=== PATIENT | male | born 1990 | race Caucasian/White ===

== ENCOUNTER → 2020-07-14 09:41 | Outpatient (BNVA) | payer MEDICARE, MEDICAID, SELFPAY ==
--- NOTE | 2020-09-07 14:37 | P.EN_ITS ---
Event Note Date of Service: 09/07/20 Event Note: Call from patient: Complains of burning and cramping upper abdominal pain for the past few days. Pain is intermittent and thinks pain may be related to medications he is taking for a gout attack - taking Naproxen 500 mg 1-2 times daily. Notes some nausea & bloating and denies vomiting, fever or chills. BMs have been slow and had a BM this morning - soft and normal in color. Taking Pantoprazole 40 mg twice daily. Pt was advised to: Go on a liquid diet for 24 hrs. Take MIralax once daily for constipation. Take simethicone 2-3 times daily as needed. To call the GI clinic tomorrow if his symptoms persist. To go to [facility] if he notes increasing pain, fever, chills, nausea or vomiting
== END ==
PROVIDERS: PCP Physician Assistant; Referring Provider Physician Assistant; Visit Provider Physician Assistant
DX: K21.9 Gastro-esophageal reflux disease without esophagitis (principal); Z79.899 Other long term (current) drug therapy
CPT/HCPCS: Q3014

== ENCOUNTER 2020-09-20 09:19 | Inpatient (IN) | payer MEDICARE, MEDICAID, SELFPAY ==
--- NOTE | 2020-09-20 | XR_ITS ---
EXAMINATION: XR CHEST CLINICAL INFORMATION: Verify NG tube placement COMPARISON: CT abdomen pelvis earlier today TECHNIQUE: Frontal view of the chest was obtained. FINDINGS: Enteric tube terminates below the level of the diaphragm in the expected location of the stomach. Cardiac silhouette is normal in size. The lungs are well aerated. There is no lobar consolidation. No pleural effusion or pneumothorax. XR/XR chest 1V IMPRESSION: Enteric tube in expected position.
--- NOTE | 2020-09-20 09:34 | ED.ABDPAIN ---
HPI - Abdominal Pain General Chief Complaint: Abdominal Pain Stated Complaint: abd pain Time Seen by Provider: 09/20/20 09:33 Source: patient Mode of arrival: ambulatory Limitations: no limitations History of Present Illness HPI narrative: Patient history of surgery in abdomen when he was infant since then patient had multiple episodes of partial bowel obstruction, 2 years ago he had complete bowel obstruction has to be in the hospital and NGT was placed. This time patient feels since yesterday evening upper abdominal pain with nausea still passing gas but pain is getting worse and is similar to that in the past when he had partial bowel obstruction MD elicited complaint: abdominal pain Pertinent past history: other Onset (ago): hour(s) (14) Pain Consistency: constant Location: epigastric Quality: cramping Radiation: epigastric Exacerbating factors: eating Relieving factors: nothing Associated symptoms: nausea Related Data Home Medications Medication Instructions Recorded Confirmed pantoprazole 40 mg tablet,delayed 40 mg PO DAILY 07/14/20 07/14/20 release cetirizine 09/20/20 escitalopram oxalate 1 tab PO DAILY 09/20/20 09/20/20 ibuprofen 1 tab PO TID 09/20/20 09/20/20 Previous Rx's Medication Instructions Recorded simethicone 80 mg chewable tablet 80 mg PO TID-QID PRN 30 Days #90 09/07/20 tab Allergies Allergy/AdvReac Type Severity Reaction Status Date / Time Sulfa (Sulfonamide Allergy Intermediate SWOLLEN Unverified 05/15/20 17:04 Antibiotics) TONGUE [SULFA (SULFONAMIDE ANTIBIOTICS)] sulfa Allergy Unknown swollen Uncoded 02/25/20 00:00 tongue Review of Systems Review of Systems Constitutional : No Weight loss, No Fever, No Chills ENT/Mouth : No sore throat, No Rhinorrhea Eyes: No Eye Pain, No Swelling Cardiovascular : No Chest Pain, no palpitations Respiratory : No Cough, No Sputum, no shortness of breath Gastrointestinal : ++ Nausea, No Vomiting, No Diarrhea, ++abdominal Pain, no black stools Genitourinary : No Dysuria, No Urinary Frequency Musculoskeletal : No joint pain, No Myalgias, No Joint Swelling Skin : No Skin Lesions, No rash Neuro : No Weakness, No Numbness, No Dizziness, No Headache Psych : No Anxiety/Panic, No Depression Heme/Lymph: No Bruising, No Lymphadenopathy Endocrine : No Polyuria, No Polydipsia All other systems reviewed and are negative Physical Exam Vital Signs: Vital Signs: Last Vital Signs Temp 97.5 F 09/20/20 13:37 Pulse 72 09/20/20 13:37 Resp 20 09/20/20 13:37 BP 133/76 09/20/20 13:37 Pulse Ox 97 09/20/20 13:37 Body Mass Index 43.9 Const: General: cooperative, comfortable, well developed and acute distress moderate Nutritional Appearance: average body habitus Orientation/consciousness: patient oriented x3 HENMT: Head: Yes normal to inspection Ears: hearing grossly normal bilaterally Mouth: Normal oral and palatal mucosa present Eyes: General: appearance normal, both eyes and all related structures Neck: Neck: Yes normal visual inspection, Yes full ROM and Yes no JVD Chest: Chest palpation & inspection: normal inspection of the chest Resp: Effort & Inspection: normal respiratory effort Auscultation: clear to auscultation bilaterally, no crackles, no rales and no rhonchi Cardio: Jugular venous distension: no JVD Palpation: normal PMI Rate: regular rate Rhythm: regular rhythm Heart sounds: S1 normal heart sound present and S2 normal heart sound present GI: Inspection: Yes normal to inspection Palpation (GI): Soft to palpation, Tenderness to palpation present (GI) in the epigastrum; with no rebound tenderness and no masses Auscultation: Hyperactive bowel sounds present : General: Yes no CVA tenderness Back/Spine/Pelvis: Back: no CVA tenderness Thoracic/Lumbar Spine: thoracic and lumbar spine normal to inspection Skin: General skin exam: no rashes or lesions noted Neuro: General: patient oriented x3 and gait normal Extrem: General: Yes normal to inspection, Yes no calf tenderness and No pedal edema Course Course Course Narrative: Patient with partial small-bowel obstruction CT scan confirmed that. NG tube was placed which drained about 500 cc of gastric content patient feeling much better will admit patient for observation for intermitted NG suction patient seen by Dr. Green surgeon MDM - Abdominal Pain Differential Diagnosis Differential diagnosis: Likely small bowel obstruction Medical Records Attestation: I reviewed the patient's medical records. Lab Data Attestation: I reviewed the patient's lab results. Result diagrams: 09/20/20 09:52 09/20/20 09:52 Labs: Lab Results 09/20/20 09/20/20 09/20/20 Range/Units 09:52 09:52 13:40 WBC 8.7 (4.8-10.8) X10*3/uL RBC 5.73 (4.60-5.80) X10*6/uL Hgb 17.5 (14.0-18.0) g/dl Hct 48.8 (42-52) % MCV 85.2 (80-98) fL MCH 30.5 (27.0-33.0) pg MCHC 35.9 (31.0-36.0) g/dl RDW 12.6 (11.0-16.0) % Plt Count 281 (160-400) X10*3/uL MPV 9.4 (9.4-12.4) fL Immature Gran % (Auto) 0.5 H (0.0-0.4) % Neut % (Auto) 71.9 (45-73) % Lymph % (Auto) 17.9 L (20-40) % [place] % (Auto) 8.1 (2-11) % Eos % (Auto) 1.3 (0-4) % Baso % (Auto) 0.3 (0-2) % Lymph # (Auto) 1.6 (1.2-4.9) X10*3/uL [place] # (Auto) 0.7 (0.1-1.2) X10*3/uL Eos # (Auto) 0.1 (0.0-0.4) X10*3/uL Baso # (Auto) 0.0 (0.0-0.2) X10*3/uL Abs Immat Gran (auto) 0.04 H (0.00-0.03) X10*3/uL Absolute Neuts (auto) 6.2 (2.0-8.3) X10*3/uL Absolute Nucleated RBC 0.000 (0.0-0.012) X10*3/uL Nucleated RBC % (auto) 0.0 (0.0-0.2) /100WBC Sodium 138 (135-145) mmol/L Potassium 4.7 (3.3-5.1) mmol/l Chloride 102 (96-108) mmol/L Carbon Dioxide 26 (22-29) mmol/L Anion Gap 15 (12-20) BUN 18 H (9-16) mg/dL Creatinine 1.04 (0.5-1.4) mg/dL Estim Creat Clear Calc 124.5 Estimated GFR > 60 Random Glucose 127 H (60-115) mg/dL Calcium 9.7 (8.4-10.2) mg/dL Total Bilirubin 1.3 H (0.0-1.0) mg/dL Direct Bilirubin 0.5 (0.0-0.5) mg/dL AST 48 H (5-37) U/L ALT 105 H (0-40) U/L Alkaline Phosphatase 50 (39-117) U/L Total Protein 7.8 (6.5-8.0) g/dL Albumin 5.0 (3.5-5.0) g/dL Lipase 25 (8-78) U/L COVID-19 ([facility]ACE) Negative (Negative) COVID-19 Clin Com See Note Discharge Plan Discharge Clinical Impression: Small bowel obstruction Patient Disposition: Admitted As Inpatient [facility] Past Medical History Medical History (Updated 09/20/20 @ 13:58 by Bernabe Green MD) Chronic GERD Gout History of varicose veins Klippel Trenaunay syndrome Partial small bowel obstruction SBO (small bowel obstruction) Surgical History History of bowel resection History of colonoscopy History of laparotomy History of vascular surgery Hx of endoscopy Hx of tonsillectomy Status post orchiopexy Family History Family History Father No problems noted. Mother No problems noted. Maternal Grandmother Hx of colon cancer, stage I Social History Social History Alcohol intake: never Smoking Status: Never smoker Use of substances other than those prescribed or required for medical reasons: No Advance Directives: No Advance Directives Information Provided: No service: No Current occupational status: disabled
--- NOTE | 2020-09-20 09:37 | CT_ITS ---
EXAMINATION: CT ABDOMEN AND PELVIS WITHOUT CONTRAST CLINICAL INFORMATION: 29-year-old male with upper abdominal pain. Question partial small bowel obstruction. COMPARISON: CT abdomen pelvis 10/26/2019 TECHNIQUE: Multidetector volumetric imaging was performed from the superior aspect of the liver through the pubic symphysis. Sagittal and coronal reformatted images were obtained on the technologist's workstation. This CT examination was performed using dose optimization techniques as appropriate, variously including the following: *Automated exposure control *Adjustment of mA and/or kV according to patient size (this includes techniques or standardized protocols for targeted exams where dose is matched to indication/reason for exam; i.e. extremities or head) *Use of iterative reconstruction technique DLP: 1131 mGy-cm FINDINGS: Visualized lung bases are well aerated. The liver is mildly enlarged and demonstrates diffusely decreased attenuation. The gallbladder is normal in appearance. The pancreas and adrenal glands are unremarkable. The spleen is mildly enlarged measuring 15.4 cm. Symmetrically sized kidneys. No renal calculi or hydronephrosis bilaterally. Mildly distended, debris-filled stomach. There is gradual dilatation of proximal and mid loops of small bowel which measure up to 3.4 cm. A few scattered air-fluid levels are noted within these sections of small bowel. There appears to be fecal contents present within the midportion of the small bowel. Small bowel gradually tapers to a normal caliber distal small bowel without transition zone (right lower quadrant images 53 through 37/103, series 3). The colon is normal in caliber and demonstrates only mild stool burden. There is mild colonic diverticulosis without CT evidence to suggest active diverticulitis. Normal appendix. Nonaneurysmal abdominal aorta. Embolization coils are noted within the left gonadal vein. There are dilated collaterals which appear to extend from the left renal vein into the lumbar system and pelvic veins. The infrarenal IVC is severely atrophic and not clearly visualized. The right common iliac vein is not visualized. Venous system from the right lower extremity appears to drain through the right internal iliac veins and then into the lumbar system. Pelvic varices again noted. The bladder is normal in appearance. The prostate gland is not enlarged. No gross free pelvic fluid. Shotty bilateral inguinal lymph nodes again noted. No gross free pelvic fluid. Mild degenerative changes of the spine. CT/CT abdomen pelvis wo con IMPRESSION: 1. Mildly dilated loops of mid small bowel which contain a few air-fluid levels and fecal material. There is gradual transition to a normal caliber distal small bowel without abrupt transition zone. Findings are nonspecific. 2. Diffusely decreased liver attenuation suggesting hepatic steatosis. Correlation with liver enzymes recommended. 3. Mild splenomegaly. 4. Vascular anomalies again noted as detailed above.
[2020-09-20 09:42] VITALS: BP 151/89; PULSE 70; RESP 18; TEMP 36.6; O2SAT 97; BMI 43.9
[2020-09-20] MEDS: ondansetron HCL 4 MG/2 ML VIAL IVPUSH ×2 (09:54→14:12)
[2020-09-20] MEDS: 0.9 % Sodium Chloride 1,000 ML 999 ML IVCONT ×2 (09:54→14:17)
[2020-09-20] MEDS: Morphine Sulfate 4 MG/ML CARTRIDGE IVPUSH ×2 (09:54→11:24)
[2020-09-20 09:58] LABS: MANUAL DIFF FLAG NO
[2020-09-20 10:15] LABS: Basophils Percent Auto 0.3 % (0-2); Eosinophils Absolute Auto 0.1 X10*3/uL (0.0-0.4); Eosinophils Percent Auto 1.3 % (0-4); Hematocrit 48.8 % (42-52); Hemoglobin 17.5 g/dl (14.0-18.0); Imm Gran Abs Auto 0.04 X10*3/uL (0.00-0.03); Imm Gran Pct Auto 0.5 % (0.0-0.4); Lymphocytes Absolute Auto 1.6 X10*3/uL (1.2-4.9); Lymphocytes Percent Auto 17.9 % (20-40); Mean Corpuscular HGB Conc 35.9 g/dl (31.0-36.0); Mean Corpuscular Hemoglobin 30.5 pg (27.0-33.0); Mean Corpuscular Volume 85.2 fL (80-98); Mean Platelet Volume 9.4 fL (9.4-12.4); Monocytes Absolute Auto 0.7 X10*3/uL (0.1-1.2); Monocytes Percent Auto 8.1 % (2-11); Neutrophils Absolute Auto 6.2 X10*3/uL (2.0-8.3); Neutrophils Percent Auto 71.9 % (45-73); Platelet Count 281 X10*3/uL (160-400); Red Blood Count 5.73 X10*6/uL (4.60-5.80); Red Cell Distribution Width 12.6 % (11.0-16.0); White Blood Count 8.7 X10*3/uL (4.8-10.8)
[2020-09-20 10:30] LABS: Alanine Aminotransferase 105 U/L (0-40); Alkaline Phosphatase 50 U/L (39-117); Anion Gap 15 (12-20); Aspartate Amino Transferase 48 U/L (5-37); Bilirubin Direct 0.5 mg/dL (0.0-0.5); Bilirubin Total 1.3 mg/dL (0.0-1.0); Blood Urea Nitrogen 18 mg/dL (9-16); Calcium 9.7 mg/dL (8.4-10.2); Carbon Dioxide 26 mmol/L (22-29); Chloride 102 mmol/L (96-108); Creatinine Clr Calc Pharmacy 124.5; Estimated Glomerular Filt Rate > 60; Glucose Random 127 mg/dL (60-115); Lipase 25 U/L (8-78); Potassium 4.7 mmol/l (3.3-5.1); Sodium 138 mmol/L (135-145); Total Protein 7.8 g/dL (6.5-8.0)
--- NOTE | 2020-09-20 10:41 | PC.NURSE ---
pt sts pain is a bit better . awaiting ct scan results.
[2020-09-20 11:11] VITALS: BP 112/51; PULSE 73; RESP 18; TEMP 36.7; O2SAT 97
[2020-09-20 11:24] VITALS: RESP 22
[2020-09-20] MEDS: Lidocaine HCl 4 % Laryng-O-Jet 4 ML 1 APPL TOPICAL ×2 (11:25→11:54)
[2020-09-20 13:37] VITALS: BP 133/76; PULSE 72; RESP 20; TEMP 36.4; O2SAT 97
--- NOTE | 2020-09-20 13:48 | P.HPGS_ITS ---
History of Present Illness History of Present Illness Date of Service: 09/21/20 Chief complaint: PSBO Narrative: Rod Kay is a 29 year old male here in the emergency room because of abdominal pain. He describes this is diffuse and this had started sometime last night after dinner. He said this persisted throughout the night so he came to the emergency room this morning. He had a CAT scan showed suggesting partial small-bowel obstruction. He does have a history of chronic and recurrent abdominal pain. He has had multiple admissions for small-bowel obstruction. 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 At some point he had a stoma in place and this had to reversed when he was young child. Review of his medical records show that had actually admitted him to the hospital in 2018 for abdominal pain and vomiting with CAT scan showing small bowel obstruction. He says he had a bowel movement yesterday. He had flatus yesterday as well but does not recall any today. Review of Systems Constitutional: Constitutional: Denies chills and Denies fever(s) Cardiovascular: Cardiovascular: Denies chest pain, Denies dyspnea and Denies dyspnea on exertion Respiratory: Respiratory: Denies cough, Denies dyspnea and Denies dyspnea on exertion Gastrointestinal: Gastrointestinal: Denies hematochezia and Denies change in bowel habits Genitourinary: Genitourinary: Denies hematuria and Denies difficulty urinating Musculoskeletal: Musculoskeletal: Denies back pain and Denies limited range of motion Neurologic: Denies focal weakness and Denies convulsions Psychiatric: Psychiatric: Denies depression and Denies mood swings [facility] Past Medical History Medical History (Updated 09/20/20 @ 13:58 by Bernabe Green MD) Chronic GERD Gout History of varicose veins Klippel Trenaunay syndrome Partial small bowel obstruction SBO (small bowel obstruction) Functional capacity: independent ambulation Family History Family History Father No problems noted. Mother No problems noted. Maternal Grandmother Hx of colon cancer, stage I Surgical History Surgical History History of bowel resection History of colonoscopy History of laparotomy History of vascular surgery Hx of endoscopy Hx of tonsillectomy Status post orchiopexy Social History Social History Household Members: Other Household Members Other:: mother Housing: House Do you presently have visiting nurse or other home services: No Alcohol intake: never Smoking Status: Never smoker Use of substances other than those prescribed or required for medical reasons: No Currently Displaying Signs/Symptoms of Drug Intoxication Withdrawal: No Have you been hit, kicked, punched, or otherwise hurt by someone within the past year? If so, by whom?: No Do you feel safe in your current relationship?: No Current Relationship Is there a partner from a previous relationship who is making you feel unsafe now?: No Are you made to feel afraid or neglected: No Advance Directives: No Advance Directives Information Provided: No Do you have thoughts of harming others: None Do you have a plan to hurt others: No Plan Recently lost weight without trying: No service: No Current occupational status: disabled Meds Allergies Allergy/AdvReac Type Severity Reaction Status Date / Time Sulfa (Sulfonamide Allergy Intermediate SWOLLEN Verified 09/20/20 16:14 Antibiotics) TONGUE [SULFA (SULFONAMIDE ANTIBIOTICS)] sulfa Allergy Unknown swollen Uncoded 09/20/20 16:15 tongue Home Medications Medication Instructions Recorded Confirmed Type pantoprazole 40 mg tablet,delayed 40 mg PO BID 07/14/20 09/20/20 History release cetirizine 5 mg PO DAILY PRN 09/20/20 09/20/20 History escitalopram oxalate 1 tab PO DAILY 09/20/20 09/20/20 History ibuprofen 1 tab PO TID 09/20/20 09/20/20 History Physical Exam Vital Signs: Vital Signs: Last Vital Signs Temp 97.5 F 09/20/20 13:37 Pulse 72 09/20/20 13:37 Resp 20 09/20/20 13:37 BP 133/76 09/20/20 13:37 Pulse Ox 97 09/20/20 13:37 Body Mass Index 43.9 Const: Other: Appears overweight, looks uncomfortable General: no acute distress Orientation/consciousness: patient oriented x3 Neck: Neck: Yes no lymphadenopathy Resp: Auscultation: clear to auscultation bilaterally Cardio: Rhythm: regular rhythm GI: Other: Has diffuse tenderness no guarding or rebound, transverse surgical scar on the right side of the abdomen Palpation (GI): Soft to palpation and no guarding Neuro: General: patient oriented x3 Extrem: Other: Varicosities on both lower extremities Results Results Labs: Short CBC 09/20/20 Range/Units 09:52 WBC 8.7 (4.8-10.8) X10*3/uL Hgb 17.5 (14.0-18.0) g/dl Hct 48.8 (42-52) % Plt Count 281 (160-400) X10*3/uL BMP 09/20/20 09:52 Sodium 138 Potassium 4.7 Chloride 102 Carbon Dioxide 26 BUN 18 H Creatinine 1.04 Calcium 9.7 Liver Function 09/20/20 Range/Units 09:52 Total Bilirubin 1.3 H (0.0-1.0) mg/dL Direct Bilirubin 0.5 (0.0-0.5) mg/dL AST 48 H (5-37) U/L ALT 105 H (0-40) U/L Alkaline Phosphatase 50 (39-117) U/L Albumin 5.0 (3.5-5.0) g/dL Abdomen CT scan report/results: report reviewed and image reviewed CT scan - pelvis: report reviewed and image reviewed Assessment and Plan (1) Partial small bowel obstruction: Status: Acute He came in because of abdominal pain and some nausea. I have reviewed his CAT scan images in this shows dilated loops of small bowel way to the mid jejunal area. He does have good amount of air distal to this including the colon. This is suggestive of partial small-bowel obstruction. An NG tube has been inserted in the emergency room. Thick history contents were drained. He has pain and tenderness but examination is currently benign. I explained to him that he is being admitted because of his partial small-bowel obstruction. He will be NPO but may have medications by mouth. He will be hydrated with IV fluids. I explained to him that most of the time, small-bowel obstruction secondary to adhesions resolved with conservative measures. However, he was made aware that there is small chance that he may require laparotomy for non-improvement or worsening. He has had multiple episodes in the past and says that he is familiar with the plan.
[2020-09-20 14:10] LABS: COVID-19 Test Negative (Negative)
[2020-09-20] MEDS: Morphine Sulfate 4 MG/ML CARTRIDGE 2 MG IVPUSH (14:11)
[2020-09-20] MEDS: Lactated Ringers 500 ML 100 ML IV (14:50)
--- NOTE | 2020-09-20 15:44 | PC.NURSE ---
x1 call for report
[2020-09-20] MEDS: Lactated Ringers 1,000 ML 100 ML IVCONT (16:36)
[2020-09-20 16:59] VITALS: BP 154/76; PULSE 77; RESP 16; TEMP 36.7; O2SAT 96
[2020-09-20] MEDS: Morphine Sulfate 4 MG/ML CARTRIDGE 3 MG IVPUSH ×2 (17:05→23:36)
--- NOTE | 2020-09-20 17:33 | PC.NURSE ---
patient is refusing compression boots.Dr Green notified via [employer].
[2020-09-20] MEDS: Sodium Chloride 0.65 % Nasal 44 ML SPRBTL 1 SPRAY NOSTRIL-B (22:44)
[2020-09-21] VITALS (7 sets, daily range): BP systolic 124–150; BP diastolic 65–89; PULSE 78–99; RESP 18–19; TEMP 36.4–37.3; O2SAT 90–95
[2020-09-21] MEDS: Morphine Sulfate 4 MG/ML CARTRIDGE 3 MG IVPUSH ×4 (02:36→21:53)
[2020-09-21] MEDS: Lactated Ringers 1,000 ML 100 ML IVCONT ×3 (02:41→20:21)
--- NOTE | 2020-09-21 07:00 | XR_ITS ---
EXAMINATION: XR ABDOMEN KUB CLINICAL INDICATION: Partial small bowel obstruction COMPARISON: CT abdomen pelvis 09/20/2019 TECHNIQUE: AP view of the abdomen. FINDINGS: A few air-filled loops of small bowel are noted, however, none appear dilated. 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 There is a moderate stool burden throughout the colon. Enteric tube terminates over the left upper abdomen in the expected location of the stomach. No gross osseous abnormality. Embolization clips project over the left pelvis. XR/XR KUB IMPRESSION: Resolving/resolved partial small bowel obstruction.
[2020-09-21 07:30] LABS: MANUAL DIFF FLAG NO
[2020-09-21 07:41] LABS: Basophils Percent Auto 0.2 % (0-2); Eosinophils Absolute Auto 0.1 X10*3/uL (0.0-0.4); Eosinophils Percent Auto 0.8 % (0-4); Hematocrit 45.1 % (42-52); Hemoglobin 15.5 g/dl (14.0-18.0); Imm Gran Abs Auto 0.04 X10*3/uL (0.00-0.03); Imm Gran Pct Auto 0.5 % (0.0-0.4); Lymphocytes Absolute Auto 1.6 X10*3/uL (1.2-4.9); Lymphocytes Percent Auto 19.1 % (20-40); Mean Corpuscular HGB Conc 34.4 g/dl (31.0-36.0); Mean Corpuscular Hemoglobin 29.8 pg (27.0-33.0); Mean Corpuscular Volume 86.7 fL (80-98); Mean Platelet Volume 9.1 fL (9.4-12.4); Monocytes Absolute Auto 0.8 X10*3/uL (0.1-1.2); Monocytes Percent Auto 9.7 % (2-11); Neutrophils Percent Auto 69.7 % (45-73); Platelet Count 238 X10*3/uL (160-400); Red Cell Distribution Width 12.6 % (11.0-16.0); White Blood Count 8.6 X10*3/uL (4.8-10.8)
[2020-09-21 08:15] LABS: Blood Urea Nitrogen 12 mg/dL (9-16); Creatinine Clr Calc Pharmacy 157.9; Estimated Glomerular Filt Rate > 60; Glucose Random 90 mg/dL (60-115)
[2020-09-21] MEDS: Pantoprazole Sodium 40 MG/10 ML VIAL IVPUSH (08:31)
[2020-09-21] MEDS: 0.9 % Sodium Chloride Flush 3 ML SYRINGE IVFLUSH (08:32)
[2020-09-21 08:37] LABS: Anion Gap 15 (12-20); Calcium 8.3 mg/dL (8.4-10.2); Carbon Dioxide 23 mmol/L (22-29); Chloride 107 mmol/L (96-108); Potassium 3.9 mmol/l (3.3-5.1); Sodium 141 mmol/L (135-145)
--- NOTE | 2020-09-21 11:10 | PM.PNGS ---
Subjective Subjective Date of Service: 09/21/20 Interval history: abd much better passing flatus - a lot c/o pain from NGT Physical Exam Vital Signs: Vital Signs: Last Vital Signs Temp 98.9 F 09/21/20 08:00 Pulse 86 09/21/20 08:00 Resp 18 09/21/20 08:00 BP 140/89 H 09/21/20 08:00 Pulse Ox 91 L 09/21/20 08:00 Body Mass Index 43.9 Laboratory Results WBC 8.6 X10*3/uL (4.8 -10.8) 09/21/20 07:07 RBC 5.20 X10*6/uL (4. 60-5.80) 09/21/20 07:07 Hgb 15.5 g/dl (14.0-1 8.0) 09/21/20 07:07 Hct 45.1 % (42-52) 09/21/20 07:07 MCV 86.7 fL (80-98) 09/21/20 07:07 MCH 29.8 pg (27.0-33. 0) 09/21/20 07:07 MCHC 34.4 g/dl (31.0-3 6.0) 09/21/20 07:07 RDW 12.6 % (11.0-16.0 ) 09/21/20 07:07 Plt Count 238 X10*3/uL (160 -400) 09/21/20 07:07 MPV 9.1 fL (9.4-12.4) L 09/21/20 07:07 Immature Gran % (A uto) 0.5 % (0.0-0.4) H 09/21/20 07:07 Neut % (Auto) 69.7 % (45-73) 09/21/20 07:07 Lymph % (Auto) 19.1 % (20-40) L 09/21/20 07:07 [place] % (Auto) 9.7 % (2-11) 09/21/20 07:07 Eos % (Auto) 0.8 % (0-4) 09/21/20 07:07 Baso % (Auto) 0.2 % (0-2) 09/21/20 07:07 Lymph # (Auto) 1.6 X10*3/uL (1.2 -4.9) 09/21/20 07:07 [place] # (Auto) 0.8 X10*3/uL (0.1 -1.2) 09/21/20 07:07 Eos # (Auto) 0.1 X10*3/uL (0.0 -0.4) 09/21/20 07:07 Baso # (Auto) 0.0 X10*3/uL (0.0 -0.2) 09/21/20 07:07 Abs Immat Gran (au to) 0.04 X10*3/uL (0. 00-0.03) H 09/21/20 07:07 Absolute Neuts (au to) 6.0 X10*3/uL (2.0 -8.3) 09/21/20 07:07 Absolute Nucleated RBC 0.000 X10*3/uL (0 .0-0.012) 09/21/20 07:07 Nucleated RBC % (a uto) 0.0 /100WBC (0.0- 0.2) 09/21/20 07:07 Sodium 141 mmol/L (135-1 45) 09/21/20 07:07 Potassium 3.9 mmol/l (3.3-5 .1) 09/21/20 07:07 Chloride 107 mmol/L (96-10 8) 09/21/20 07:07 Carbon Dioxide 23 mmol/L (22-29) 09/21/20 07:07 Anion Gap 15 (12-20) 09/21/20 07:07 BUN 12 mg/dL (9-16) 09/21/20 07:07 Creatinine 0.82 mg/dL (0.5-1 .4) 09/21/20 07:07 Estim Creat Clear Calc 157.9 09/21/20 07:07 Estimated GFR > 60 09/21/20 07:07 Random Glucose 90 mg/dL (60-115) 09/21/20 07:07 Calcium 8.3 mg/dL (8.4-10 .2) L D 09/21/20 07:07 Total Bilirubin 1.3 mg/dL (0.0-1. 0) H 09/20/20 09:52 Direct Bilirubin 0.5 mg/dL (0.0-0. 5) 09/20/20 09:52 AST 48 U/L (5-37) H 09/20/20 09:52 ALT 105 U/L (0-40) H 09/20/20 09:52 Alkaline Phosphata se 50 U/L (39-117) 09/20/20 09:52 Total Protein 7.8 g/dL (6.5-8.0 ) 09/20/20 09:52 Albumin 5.0 g/dL (3.5-5.0 ) 09/20/20 09:52 Lipase 25 U/L (8-78) 09/20/20 09:52 COVID-19 (CANDACE) Negative (Negati ve) 09/20/20 13:40 COVID-19 Clin Com See Note 09/20/20 13:40 Impressions Chest X-Ray 09/20/20 00:00 IMPRESSION: Enteric tube in expected position. Abdomen/Pelvis CT 09/20/20 09:37 IMPRESSION: 1. Mildly dilated loops of mid small bowel which contain a few air-fluid levels and fecal material. There is gradual transition to a normal caliber distal small bowel without abrupt transition zone. Findings are nonspecific. 2. Diffusely decreased liver attenuation suggesting hepatic steatosis. Correlation with liver enzymes recommended. 3. Mild splenomegaly. 4. Vascular anomalies again noted as detailed above. KUB X-Ray 09/21/20 07:00 IMPRESSION: Resolving/resolved partial small bowel obstruction. Const: General: no acute distress Resp: Effort & Inspection: normal respiratory effort Cardio: Rate: regular rate GI: Palpation (GI): Soft to palpation, not firm and nontender Progress Note: A&P Assessment and plan (1) Partial small bowel obstruction: Status: Acute Assessment and Plan: much improved clinically and on xray still had a lot of NGT output overnight - will monitor today and if much less, possibly dc NGT abd benign labs ok doing better Fall Risk Details Current Medications: Current Medications Generic Name Dose Route Start Last Admin Trade Name Freq PRN Reason Stop Dose Admin Promethazine HCl 12.5 mg/ 50.5 mls @ 202 mls/hr 09/20/20 14:08 09/20/20 17:35 Sodium Chloride IV Infused Q6H PRN Infusion nausea Lactated Ringer's 1,000 mls @ 100 mls/hr 09/20/20 16:30 09/21/20 09:12 Lr IVCONT 100 mls/hr .Q10H MARU Infusion Morphine Sulfate 3 mg 09/20/20 14:17 09/21/20 08:31 Morphine Sulfate 4 Mg/Ml Cartridge IVPUSH 3 mg Q3H PRN Administration pain Ondansetron HCl 4 mg 09/20/20 14:08 Ondansetron Hcl 4 Mg/2 Ml Vial IVPUSH Q8H PRN Nausea Pantoprazole Sodium 40 mg 09/21/20 09:00 09/21/20 08:31 Pantoprazole Sodium 40 Mg/10 Ml Vial IVPUSH 40 mg DAILY MARU Administration Sodium Chloride 3 ml 09/20/20 16:00 09/21/20 08:32 0.9 % Sodium Chloride Flush 3 Ml Syringe IVFLUSH 3 ml QSHIFT MARU Administration Sodium Chloride 1 spray 09/20/20 22:13 09/20/20 22:44 Sodium Chloride 0.65 % Nasal 44 Ml Sprbtl NOSTRIL-B 1 spray Q1H PRN Administration Dry Nasal Passages Time Spent With Patient Time: Total time spent is greater than 50% in coordination of care (as documented) at patient's floor/unit and/or counseling patient: Time with patient: 15 - 24 minutes
[2020-09-21] MEDS: Morphine Sulfate 2 MG/ML CARTRIDGE IVPUSH (11:32)
--- NOTE | 2020-09-21 12:29 | MHC.CM.PN ---
PATIENT IS INDEPENDENT WITH HIS ADLS. NO DME OR VNA SERVICES. HE LIVES WITH HIS MOTHER, WHO WILL PROVIDE TRANSPORT HOME. PATIENT IS HOPING FOR HOME WITH NO NEED FOR SERVICES. CASE MANAGEMENT FOLLOWING. HE IS AWARE THAT CASE MANAGEMENT IS AVAILABLE TO ASSIST WITH COMPLETION OF A HCP DOCUMENT IF HE WOULD LIKE TO ASSIGN AN AGENT. IMM 09/21 IN CHART
--- NOTE | 2020-09-21 13:23 | PM.EVENT ---
Event Note Date of Service: 09/21/20 Event Note: continues to pass flatus abd remains soft minimal NGT output since this AM dc NGT clear liquids later clinically much improved
[2020-09-22] MEDS: Morphine Sulfate 4 MG/ML CARTRIDGE 3 MG IVPUSH ×3 (00:45→06:44)
[2020-09-22 04:00] VITALS: BP 153/67; PULSE 89; RESP 18; TEMP 37.2; O2SAT 92
[2020-09-22] MEDS: Lactated Ringers 1,000 ML 100 ML IVCONT (04:07)
[2020-09-22 07:39] VITALS: BP 122/66; PULSE 80; RESP 18; TEMP 36.4; O2SAT 93
[2020-09-22] MEDS: Pantoprazole Sodium 40 MG/10 ML VIAL IVPUSH (07:45)
[2020-09-22] MEDS: oxyCODONE HCl Immed Release 5 MG TABLET PO ×2 (07:56→12:34)
--- NOTE | 2020-09-22 08:54 | PM.PNGS ---
Subjective Subjective Date of Service: 09/22/20 <Marilyn Aburto PA-C - Last Filed: 09/22/20 08:57> 09/22/20 <Bernabe Green MD - Last Filed: 09/22/20 13:25> Patient reports: feels better <ARAMIS Cloud Last Filed: 09/22/20 08:57> Interval history: Denies abdominal pain. Tolerating clear liquids without nausea or vomiting. Continues to pass flatus. C/o right foot pain at ankle. <Marilyn Aburto PA-C - Last Filed: 09/22/20 08:57> Physical Exam Vital Signs: Vital Signs: Last Vital Signs Temp 97.6 F 09/22/20 07:39 Pulse 80 09/22/20 07:39 Resp 18 09/22/20 07:39 BP 122/66 09/22/20 07:39 Pulse Ox 93 09/22/20 07:39 Body Mass Index 43.9 <Marilyn Aburto PA-C - Last Filed: 09/22/20 08:57> Const: General: comfortable, no acute distress and alert <Marilyn Aburto PA-C - Last Filed: 09/22/20 08:57> Orientation/consciousness: patient oriented x3 <ARAMIS Cloud Last Filed: 09/22/20 08:57> Resp: Effort & Inspection: normal respiratory effort <Marilyn Aburto PA-C - Last Filed: 09/22/20 08:57> Cardio: Rate: regular rate <ARAMIS Cloud Last Filed: 09/22/20 08:57> GI: Inspection: No distended and Yes obesity <ARAMIS Cloud Last Filed: 09/22/20 08:57> Palpation (GI): Soft to palpation, nontender, no guarding and not rigid <ARAMIS Cloud Last Filed: 09/22/20 08:57> Auscultation: normal bowel sounds <ARAMIS Cloud Last Filed: 09/22/20 08:57> Skin: General skin exam: no rashes or lesions noted <Marilyn Aburto PA-C - Last Filed: 09/22/20 08:57> Neuro: General: patient oriented x3 <Marilyn Aburto PA-C - Last Filed: 09/22/20 08:57> Extrem: General: No calf tenderness, No clubbing and No cyanosis <Marilyn Aburto PA-C - Last Filed: 09/22/20 08:57> Right lower extremity: full ROM (no erythema); no edema <Marilyn Aburto PA-C - Last Filed: 09/22/20 08:57> Progress Note: A&P Assessment and plan (1) Partial small bowel obstruction: Status: Acute <Marilyn Aburto PA-C - Last Filed: 09/22/20 08:57> Assessment and Plan: Resolved. Currently asymptomatic. VSS. Abd exam benign. Will advance to low residue diet. If tolerating, stable for d/c to home. Pt comfortable with plan. OOB and ambulation encouraged. <Marilyn Aburto PA-C - Last Filed: 09/22/20 08:57> Continues to do well Passing flatus Denies abdominal pain No nausea or vomiting Tolerating regular food His main complaint now is right foot pain from his gout He can be discharged today I instructed him to follow up with his primary care physician for his gout He can restart all his home medications. <Bernabe Green MD - Last Filed: 09/22/20 13:25> Fall Risk Details Current Medications: Current Medications Generic Name Dose Route Start Last Admin Trade Name Freq PRN Reason Stop Dose Admin Promethazine HCl 12.5 mg/ 50.5 mls @ 202 mls/hr 09/20/20 14:08 09/20/20 17:35 Sodium Chloride IV Infused Q6H PRN Infusion nausea Lactated Ringer's 1,000 mls @ 100 mls/hr 09/20/20 16:30 09/22/20 04:07 Lr IVCONT 100 mls/hr .Q10H MARU Administration Morphine Sulfate 3 mg 09/20/20 14:17 09/22/20 06:44 Morphine Sulfate 4 Mg/Ml Cartridge IVPUSH 3 mg Q3H PRN Administration pain Ondansetron HCl 4 mg 09/20/20 14:08 Ondansetron Hcl 4 Mg/2 Ml Vial IVPUSH Q8H PRN Nausea Oxycodone HCl 5 mg 09/22/20 07:31 09/22/20 07:56 Oxycodone Hcl Immed Release 5 Mg Tablet PO 5 mg Q4H PRN Administration Pain, Moderate (Pain Scale 4-6 Pantoprazole Sodium 40 mg 09/21/20 09:00 09/22/20 07:45 Pantoprazole Sodium 40 Mg/10 Ml Vial IVPUSH 40 mg DAILY MARU Administration Sodium Chloride 3 ml 09/20/20 16:00 09/22/20 07:44 0.9 % Sodium Chloride Flush 3 Ml Syringe IVFLUSH Not Given QSHIFT MARU Sodium Chloride 1 spray 09/20/20 22:13 09/20/20 22:44 Sodium Chloride 0.65 % Nasal 44 Ml Sprbtl NOSTRIL-B 1 spray Q1H PRN Administration Dry Nasal Passages <Marilyn Aburto PA-C - Last Filed: 09/22/20 08:57> Time Spent With Patient Time: Total time spent is greater than 50% in coordination of care (as documented) at patient's floor/unit and/or counseling patient: <Marilyn Aburto PA-C - Last Filed: 09/22/20 08:57> Time with patient: 15 - 24 minutes <Marilyn Aburto PA-C - Last Filed: 09/22/20 08:57>
--- NOTE | 2020-09-22 10:15 | MHC.CM.PN ---
NURSE DIRECTOR OF VOCATIONAL GUIDANCE NOTE ELE[employer]ON[employer] MEDICAL RECORD REVIEWED PER DOCUMENTATION, PARTIAL SMALL BOWEL OBSTRUCTION ABDOMINAL [PAIN AND NAUSEA SMALL BOWEL OBSTRUCTION WAY TO MID JEJUNAL AREA PATIENT REMAINS - NG-TUBE IN PLACE SURGEON CONTINUES TO FOLLOW, DISCHARGE CAGE HOME NO SERVUICES Anticipated , lived with mom
[2020-09-22 12:00] VITALS: BP 126/59; PULSE 84; RESP 18; TEMP 37.2; O2SAT 95
--- NOTE | 2020-09-22 13:31 | MHC.CM.PN ---
pt dcd no skilled servcies ordered by
--- NOTE | 2020-09-24 12:52 | P.DS_ITS ---
DS: Providers Provider Date of Service: 09/24/20 Date of admission: 09/20/20 14:04 Primary care physician: PATRICIA Gallagher DS: Diagnosis Discharge Diagnosis (1) Partial small bowel obstruction: Status: Acute DS: Medications Discharge Medications Home Medications: Home Medications Medication Instructions Recorded Confirmed pantoprazole 40 mg tablet,delayed 40 mg PO BID 07/14/20 09/20/20 release cetirizine 5 mg PO DAILY PRN 09/20/20 09/20/20 escitalopram oxalate 1 tab PO DAILY 09/20/20 09/20/20 ibuprofen 1 tab PO TID 09/20/20 09/20/20 Previous Rx's Medication Instructions Recorded simethicone 80 mg chewable tablet 80 mg PO TID-QID PRN 30 Days #90 09/07/20 tab DS: Summary Hospital Course Hospital Course: BRIEF HPI: Rod Kay is a 29 year old male here in the emergency room because of abdominal pain. He describes this is diffuse and this had started sometime last night after dinner. He said this persisted throughout the night so he came to the emergency room this morning. He had a CAT scan showed suggesting partial small-bowel obstruction. He does have a history of chronic and recurrent abdominal pain. He has had multiple admissions for small-bowel obstruction. 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 At some point he had a stoma in place and this had to reversed when he was young child. Review of his medical records show that had actually admitted him to the hospital in 2018 for abdominal pain and vomiting with CAT scan showing small bowel obstruction. He says he had a bowel movement yesterday. He had flatus yesterday as well but does not recall any today. HOSPITAL COURSE: The patient was admitted to the surgical service for further treatment of the partial small-bowel obstruction. An NG tube was inserted in the emergency room and was continued. NPO status, IVF for hydration and analgesics PRN were ordered for pain; further plan dependent on his clinical course. The patient had an uncomplicated recovery course. On HD #1, he improved symptomatically. He has resolution of his abdominal pain and began passing flatus. His abdomen remained benign. He was reassessed later in the day and his NGT was removed and was started on clear liquids. The following day, he was tolerating clears without any symptoms. He was continuing to pass flatus and had a BM. He was advanced to a solid diet. He was reassessed later that day and remained asymptomatic with a benign abdominal exam. He felt ready for discharge. He was discharged to home on 09/22/20 in stable condition. He can follow up with Dr. Green in the office as needed. Status at Discharge Functional status at discharge: independent ambulation Overall status at discharge: patient is progressing back to baseline Time Spent with Patient Time attestation: Total time spent providing and/or coordinating discharge services: Discharge coordination time: Less than 30 minutes Physical Exam Vital Signs: Vital Signs: Last Vital Signs Temp 98.9 F 09/22/20 12:00 Pulse 84 09/22/20 12:00 Resp 18 09/22/20 12:00 BP 126/59 L 09/22/20 12:00 Pulse Ox 95 09/22/20 12:00 Body Mass Index 43.9 Const: General: comfortable, no acute distress and alert Orientation/consciousness: patient oriented x3 Eyes: Sclerae: sclerae normal Cardio: Rate: regular rate GI: Inspection: No distended Palpation (GI): Soft to palpation, nontender, no guarding and not rigid Skin: General skin exam: no rashes or lesions noted Neuro: General: patient oriented x3 DS: Data Data Completed and Pending Labs on day of discharge: Laboratory Tests 09/20/20 09/20/20 09/20/20 09:52 09:52 13:40 WBC 8.7 RBC 5.73 Hgb 17.5 Hct 48.8 MCV 85.2 MCH 30.5 MCHC 35.9 RDW 12.6 Plt Count 281 MPV 9.4 Immature Gran % (Auto) 0.5 H Neut % (Auto) 71.9 Lymph % (Auto) 17.9 L [place] % (Auto) 8.1 Eos % (Auto) 1.3 Baso % (Auto) 0.3 Lymph # (Auto) 1.6 [place] # (Auto) 0.7 Eos # (Auto) 0.1 Baso # (Auto) 0.0 Abs Immat Gran (auto) 0.04 H Absolute Neuts (auto) 6.2 Absolute Nucleated RBC 0.000 Nucleated RBC % (auto) 0.0 Sodium 138 Potassium 4.7 Chloride 102 Carbon Dioxide 26 Anion Gap 15 BUN 18 H Creatinine 1.04 Estim Creat Clear Calc 124.5 Estimated GFR > 60 Random Glucose 127 H Calcium 9.7 Total Bilirubin 1.3 H Direct Bilirubin 0.5 AST 48 H ALT 105 H Alkaline Phosphatase 50 Total Protein 7.8 Albumin 5.0 Lipase 25 COVID-19 ([facility]) Negative COVID-19 Clin Com See Note 09/21/20 09/21/20 07:07 07:07 WBC 8.6 RBC 5.20 Hgb 15.5 Hct 45.1 MCV 86.7 MCH 29.8 MCHC 34.4 RDW 12.6 Plt Count 238 MPV 9.1 L Immature Gran % (Auto) 0.5 H Neut % (Auto) 69.7 Lymph % (Auto) 19.1 L [place] % (Auto) 9.7 Eos % (Auto) 0.8 Baso % (Auto) 0.2 Lymph # (Auto) 1.6 [place] # (Auto) 0.8 Eos # (Auto) 0.1 Baso # (Auto) 0.0 Abs Immat Gran (auto) 0.04 H Absolute Neuts (auto) 6.0 Absolute Nucleated RBC 0.000 Nucleated RBC % (auto) 0.0 Sodium 141 Potassium 3.9 Chloride 107 Carbon Dioxide 23 Anion Gap 15 BUN 12 Creatinine 0.82 Estim Creat Clear Calc 157.9 Estimated GFR > 60 Random Glucose 90 Calcium 8.3 L D Total Bilirubin Direct Bilirubin AST ALT Alkaline Phosphatase Total Protein Albumin Lipase COVID-19 ([facility]) COVID-19 Clin Com Discharge Plan Discharge Patient Disposition: Home, Self-Care Referrals: Bernabe Green MD [Physician] - (ffup as needed) Ericka Gardner PA [Primary Care Provider] - Discharge Medications: Continued simethicone [Gas Relief 80 (simethicone)] 80 mg tablet,chewable 80 mg PO TID-QID PRN (Reason: abdominal distention) 30 Days Qty: 90 RF: 0 ibuprofen 800 mg tablet 1 tab PO TID RF: 0 escitalopram oxalate 5 mg tablet 1 tab PO DAILY RF: 0 cetirizine tablet 5 mg PO DAILY PRN (Reason: Allergic Symptoms) RF: 0 pantoprazole 40 mg tablet,delayed release (DR/EC) 40 mg PO BID RF: 0 Discharge Orders: Discharge Order (Routine); Ordered 09/22/20 Ordered By: Bernabe Green Diet: advance to usual diet Activity on Discharge: As tolerated Stand Alone Forms: Patient Portal Discharge page Visit Report Forms: Patient Portal Discharge page Care Plan Goals: Return to baseline health and activity. Health Concerns: PSBO Plan of Treatment: Conservative management, f/u as needed Discharge Date/Time: 09/22/20 15:13
== END 2020-09-22 15:13 | disposition home or self-care (01) | DRG 389 ==
LOC: HO.ED 12:46 → HO.EDOVER 15:14 → HO.S3 15:20
PROVIDERS: Admitting Provider Surgery; Emergency Provider Internal Medicine; PCP Physician Assistant; Visit Provider Surgery
DX: K56.600 Partial intestinal obstruction, unspecified as to cause (principal); Q87.2 Congenital malformation syndromes predominantly involving limbs; K21.9 Gastro-esophageal reflux disease without esophagitis; M10.9 Gout, unspecified; Z20.822 Contact with and (suspected) exposure to COVID-19; Z88.2 Allergy status to sulfonamides; Z79.1 Long term (current) use of non-steroidal anti-inflammatories (NSAID); Z79.899 Other long term (current) drug therapy
CPT/HCPCS: 36415; 71045; 74018; 74176; 80048; 80076; 83690; 85025; 87635; 96361; 96374; 96375; 96376; 99285; J2270; J2405

== ENCOUNTER → 2020-11-03 14:35 | Outpatient (BNVA) | payer MEDICARE, MEDICAID, SELFPAY | PROVIDERS: PCP Psychiatry & Neurology Neurology; Visit Provider Physician Assistant | CPT/HCPCS: Q3014 ==

== ENCOUNTER → 2020-11-10 15:26 | Outpatient (BNVA) | payer MEDICARE, MEDICAID, SELFPAY | PROVIDERS: PCP Psychiatry & Neurology Neurology; Visit Provider Surgery | DX: E66.3 Overweight (principal); Z87.19 Personal history of other diseases of the digestive system | CPT/HCPCS: 99212 ==

== ENCOUNTER → 2021-01-08 09:46 | Outpatient (BNVA) | payer MEDICARE, MEDICAID, SELFPAY | PROVIDERS: PCP Physician Assistant; Visit Provider Dietitian, Registered | DX: K21.9 Gastro-esophageal reflux disease without esophagitis (principal) | CPT/HCPCS: 97802 ==

== ENCOUNTER 2021-09-22 16:19 | Outpatient (REF) | payer MEDICARE, MEDICAID, SELFPAY ==
--- NOTE | ~2021-09-22 | XR_ITS ---
EXAMINATION: XR LUMBOSACRAL SPINE CLINICAL INFORMATION: Degenerative joint disease COMPARISON: CT abdomen from 09/20/2020 TECHNIQUE: Three views of the lumbosacral spine. FINDINGS: 5 nonrib-bearing lumbar-type vertebral bodies with diminutive T12 ribs. No acute visible fracture or dislocation. Mild multilevel degenerative changes with disc space narrowing, endplate sclerosis, osteophyte formation, and lower lumbar spine facet arthropathy greatest along the lower thoracic spine. Vertebral body heights and disc spaces are otherwise maintained. Posterior elements are intact. Paraspinal soft tissues are unremarkable. Embolization coils are noted in the left lower abdomen and pelvis. Visualized bowel gas is unremarkable. XR/XR lumbar spine 2-3V IMPRESSION: 1. No acute visible fracture or dislocation. 2. Mild multilevel degenerative changes.
== END 2021-09-22 16:20 | disposition home or self-care (01) ==
LOC: HO.XRAY 16:19
PROVIDERS: Absent Provider Physician Assistant; PCP Physician Assistant; Visit Provider Physical Medicine & Rehabilitation
DX: M51.37 Other intervertebral disc degeneration, lumbosacral region (principal)
CPT/HCPCS: 72100

== ENCOUNTER → 2021-10-13 09:58 | Outpatient (BNVA) | payer MEDICARE, MEDICAID, SELFPAY | PROVIDERS: PCP Physician Assistant; Visit Provider Physician Assistant | DX: K21.9 Gastro-esophageal reflux disease without esophagitis (principal) | CPT/HCPCS: 99212 ==

== ENCOUNTER 2022-02-05 00:49 | Inpatient (IN) | payer MEDICARE, MEDICAID, SELFPAY ==
[2022-02-05] VITALS (10 sets, daily range): BP systolic 119–141; BP diastolic 51–78; PULSE 70–93; RESP 16–20; TEMP 36.4–37; O2SAT 92–98; BMI 44.0; BMI 44.5
--- NOTE | ~2022-02-05 | XR_ITS ---
EXAMINATION: XR CHEST CLINICAL INFORMATION: Post nasogastric tube COMPARISON: 09/20/2020 TECHNIQUE: Frontal view of the chest was obtained. XR/XR chest 1V FINDINGS/IMPRESSION: Enteric tube terminates within the stomach. Normal symmetric lung volumes. No parenchymal consolidation. No pleural effusion. No pneumothorax. Cardiomediastinal silhouette and pulmonary vascularity are within normal limits. No acute osseous abnormalities.
--- NOTE | ~2022-02-05 | CT_ITS ---
EXAMINATION: CT ABDOMEN AND PELVIS WITHOUT CONTRAST CLINICAL INFORMATION: Upper abdominal pain. History of small bowel obstruction. COMPARISON: 09/20/2020 TECHNIQUE: Multidetector volumetric imaging was performed from the superior aspect of the liver through the pubic symphysis. Sagittal and coronal reformatted images were obtained on the technologist's workstation. This CT examination was performed using dose optimization techniques as appropriate, variously including the following: *Automated exposure control *Adjustment of mA and/or kV according to patient size (this includes techniques or standardized protocols for targeted exams where dose is matched to indication/reason for exam; i.e. extremities or head) *Use of iterative reconstruction technique DLP: 1024 mGy-cm FINDINGS: LUNG BASES: The visualized lung bases are unremarkable. LIVER, GALLBLADDER, AND BILIARY TREE: The liver is normal in size, shape, and attenuation. No focal hepatic lesion or biliary ductal dilatation is present. Gallbladder physiologically contracted. PANCREAS: Unremarkable. SPLEEN: Mildly enlarged measuring 15.1 cm. ADRENAL GLANDS: Unremarkable. KIDNEYS AND URETERS: The kidneys are normal in size, shape, and attenuation. No hydronephrosis, hydroureter, or calculi seen. No perinephric stranding. BLADDER: Unremarkable. GASTROINTESTINAL TRACT: Stomach unremarkable. Proximal small bowel is nondilated. There are several loops of mildly dilated small bowel within the right hemiabdomen, some of which exhibit inspissation of succus entericus i.e. small bowel feces sign. These small bowel loops measure up to 4 cm in diameter, and are matted together in one area. There is a relative point of transition within the right lower quadrant where a decompressed loop of ileum exits the area where the loops appear matted together (see finch images). Colon and appendix are unremarkable. ABDOMINAL WALL: No significant hernia is appreciated. LYMPH NODES: Normal. 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 The infrarenal IVC is diminutive and atrophic, possibly atretic. Right external iliac vein is also atrophic. Collaterals from right lower extremity. 2. Cross midline in the suprapubic region to the left common femoral vein. There are also internal iliac venous collaterals which join lumbar collaterals to join the left renal vein. PELVIC VISCERA: Unremarkable. OSSEOUS STRUCTURES: No acute or suspicious osseous abnormalities. CT/CT abdomen pelvis wo con IMPRESSION: * Findings compatible with small bowel obstruction as described. In August 2020, there are also dilated loops of small bowel, however on that examination, there is no appreciable transition point. Also, on the current examination, there is an area where the small bowel loops appear matted together possibly representing an internal hernia. * No evidence of vascular compromise. * Mild splenomegaly. * Vascular anomalies as described.
--- NOTE | ~2022-02-05 | US_ITS ---
EXAMINATION: US VENOUS ULTRASOUND WITH DOPPLER LOWER EXTREMITY, LEFT CLINICAL INFORMATION: Pain COMPARISON: Lower extremity DVT ultrasound 03/20/2015 TECHNIQUE: Ultrasound of the deep veins is performed from the hip to the calf with compression sonography and color and pulse Doppler assessment. Spectral analysis with color-flow imaging is performed. FINDINGS: There is normal venous compression and respiratory variation and augmented flow. The visualized common femoral vein, superficial femoral vein, profunda femoral vein, popliteal vein, and the trifurcation region shows no evidence of deep venous thrombosis. There is no significant popliteal fossa cyst. If the patient's symptoms persist, followup ultrasound in 5 days 7 days might be of value to exclude proximal propagation from a non-visualized calf vein. US/US venous duplex LE LT IMPRESSION: No DVT demonstrated in the left lower extremity.
--- NOTE | ~2022-02-05 | US_ITS ---
EXAMINATION: US VENOUS ULTRASOUND WITH DOPPLER LOWER EXTREMITY, LEFT CLINICAL INFORMATION: Left leg swelling COMPARISON: Previous x-ray most recent 02/06/2022 TECHNIQUE: Ultrasound of the deep veins is performed from the hip to the calf with compression sonography and color and pulse Doppler assessment. Spectral analysis with color-flow imaging is performed. FINDINGS: There is normal venous compression and respiratory variation and augmented flow. The visualized common femoral vein, superficial femoral vein, profunda femoral vein, popliteal vein, and the trifurcation region shows no evidence of deep venous thrombosis. There is no significant popliteal fossa cyst. US/US venous duplex LE IMPRESSION: No DVT demonstrated in the left lower extremity.
--- NOTE | 2022-02-05 03:14 | ED_ITS ---
HPI - Abdominal Pain General Chief Complaint: Abdominal Pain Stated Complaint: abd pain, history of bowel obstruction Time Seen by Provider: 02/05/22 03:13 Source: patient Mode of arrival: ambulatory Limitations: no limitations History of Present Illness HPI narrative: Patient's history of recurrent small-bowel obstructions last time patient was admitted was 09/18 with same, comes here with similar mid abdominal pain and distention since yesterday afternoon with nausea had 2 normal bowel movements. Patient did have a surgery for meconium ileus since then adhesions been the cause for small bowel obstruction. No fever or chills Related Data Home Medications Medication Instructions Recorded Confirmed cetirizine 5 mg PO DAILY PRN Allergic Symptoms 09/20/20 10/13/21 celecoxib 200 mg capsule 200 mg PO DAILY 10/13/21 10/13/21 Previous Rx's Medication Instructions Recorded pantoprazole 40 mg tablet,delayed 40 mg PO BID #60 tabs 01/11/22 release Allergies Allergy/AdvReac Type Severity Reaction Status Date / Time Sulfa (Sulfonamide Allergy Intermediate SWOLLEN Verified 10/13/21 09:59 Antibiotics) TONGUE [SULFA (SULFONAMIDE ANTIBIOTICS)] sulfa Allergy Unknown swollen Uncoded 09/20/20 16:15 tongue Review of Systems Review of Systems Yes all other systems are reviewed and are negative PMFSH Past Medical History Medical History Chronic GERD Gout History 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 Mother No problems noted. Maternal Grandmother Hx of colon cancer, stage I Social History Social History Household Members: Other Household Members Other:: mother Housing: House Do you presently have visiting nurse or other home services: No Alcohol intake: never Advance Directives: No Advance Directives Information Provided: No service: No Current occupational status: disabled Physical Exam ED Vital Signs: Vital Signs - 24 hr 02/05/22 01:35 02/05/22 02:31 02/05/22 06:18 Temperature 98.1 F 98.1 F Pulse Rate 80 80 71 Respiratory Rate 18 18 18 Blood Pressure 130/78 130/78 136/61 Pulse Oximetry 96 96 95 Oxygen Delivery Method Room Air Room Air Room Air BMI result Body Mass Index 44.0 Appearance: Alert. Oriented X3. No acute distress. Eyes: No pallor or icterus ENT: Pharynx normal. Oral Mucosa moist Neck: Normal inspection. Neck supple. CVS: Normal heart rate and rhythm. Pulses normal. Respiratory: No respiratory distress. Equal air entry bilateral, no wheezing/rales/rhonchi Abdomen: Soft and tenderness in mid and upper abdomen with guarding no rebound tenderness Bowel sounds are present, no mass palpable, no CVA tenderness Skin: Skin warm and dry. Normal skin color. Normal skin turgor. Extremities: No lower extremity edema. No calf tenderness Neuro: Oriented X 3. No motor deficit. MDM - Abdominal Pain MDM Narrative Medical decision making narrative: 530 am Patient with small-bowel obstructions as in the past dilated small bowels up to 4 cm NG tube was placed patient felt much better case discussed with Dr. Green surgeon will admit patient to his service Differential Diagnosis Differential diagnosis: Likely abdominal pain and small bowel obstruction Medical Records Attestation: I reviewed the patient's medical records. Lab Data Attestation: I reviewed the patient's lab results. Result diagrams: 02/05/22 03:49 02/05/22 03:49 Labs: Lab Results 02/05/22 02/05/22 02/05/22 Range/Units 03:49 03:49 05:56 WBC 8.6 (4.8-10.8) X10*3/uL RBC 5.70 (4.60-5.80) X10*6/uL Hgb 17.2 (14.0-18.0) g/dl Hct 48.2 (42.0-52.0) % MCV 84.6 (80.0-98.0) fL MCH 30.2 (27.0-33.0) pg MCHC 35.7 (31.0-36.0) g/dl RDW 13.0 (11.0-16.0) % Plt Count 237 (160-400) X10*3/uL MPV 9.2 L (9.4-12.4) fL Immature Gran % (Auto) 1.2 H (0.0-0.4) % Neut % (Auto) 66.7 (45-73) % Lymph % (Auto) 21.7 (20-40) % [place] % (Auto) 8.0 (2-11) % Eos % (Auto) 2.1 (0-4) % Baso % (Auto) 0.3 (0-2) % Lymph # (Auto) 1.9 (1.2-4.9) X10*3/uL [place] # (Auto) 0.7 (0.1-1.2) X10*3/uL Eos # (Auto) 0.2 (0.0-0.4) X10*3/uL Baso # (Auto) 0.0 (0.0-0.2) X10*3/uL Abs Immat Gran (auto) 0.10 H (0.00-0.03) X10*3/uL Absolute Neuts (auto) 5.8 (2.0-8.3) x10*3/uL Absolute Nucleated RBC 0.000 (0.0-0.012) X10*3/uL Nucleated RBC % (auto) 0.0 (0.0-0.2) /100WBC Sodium 141 (135-145) mmol/L Potassium 4.4 (3.3-5.1) mmol/L Chloride 104 (96-108) mmol/L Carbon Dioxide 25 (22-29) mmol/L Anion Gap 16 (12-20) BUN 13 (9-16) mg/dL Creatinine 0.95 (0.5-1.4) mg/dL Estim Creat Clear Calc 134.1 Estimated GFR > 60 Random Glucose 101 (60-115) mg/dL Calcium 10.0 D (8.4-10.2) mg/dL Total Bilirubin 1.1 H (0.0-1.0) mg/dL AST 62 H (5-37) U/L ALT 126 H (0-40) U/L Alkaline Phosphatase 51 (39-117) U/L Total Protein 7.9 (6.5-8.0) g/dL Albumin 5.0 (3.5-5.0) g/dL Lipase 27 (8-78) U/L COVID-19 ([facility]) Negative (Negative) COVID-19 Clin Com See Note Discharge Plan Discharge Clinical Impression: Small bowel obstruction Patient Disposition: Admitted As Inpatient
[2022-02-05 03:55] LABS: Basophils Percent Auto 0.3 % (0-2); Eosinophils Absolute Auto 0.2 X10*3/uL (0.0-0.4); Eosinophils Percent Auto 2.1 % (0-4); Hematocrit 48.2 % (42.0-52.0); Hemoglobin 17.2 g/dl (14.0-18.0); Imm Gran Pct Auto 1.2 % (0.0-0.4); Lymphocytes Absolute Auto 1.9 X10*3/uL (1.2-4.9); Lymphocytes Percent Auto 21.7 % (20-40); MANUAL DIFF FLAG NO; Mean Corpuscular HGB Conc 35.7 g/dl (31.0-36.0); Mean Corpuscular Hemoglobin 30.2 pg (27.0-33.0); Mean Corpuscular Volume 84.6 fL (80.0-98.0); Mean Platelet Volume 9.2 fL (9.4-12.4); Monocytes Absolute Auto 0.7 X10*3/uL (0.1-1.2); Neutrophils Absolute Auto 5.8 x10*3/uL (2.0-8.3); Neutrophils Percent Auto 66.7 % (45-73); Platelet Count 237 X10*3/uL (160-400); White Blood Count 8.6 X10*3/uL (4.8-10.8)
[2022-02-05] MEDS: ondansetron HCL 4 MG/2 ML VIAL IVPUSH ×3 (03:56→15:59)
[2022-02-05] MEDS: 0.9 % Sodium Chloride 1,000 ML 999 ML IV ×2 (03:56→05:18)
[2022-02-05] MEDS: Morphine Sulfate 4 MG/ML CARTRIDGE IVPUSH ×2 (03:56→05:17)
[2022-02-05 04:20] LABS: Alanine Aminotransferase 126 U/L (0-40); Alkaline Phosphatase 51 U/L (39-117); Anion Gap 16 (12-20); Aspartate Amino Transferase 62 U/L (5-37); Bilirubin Total 1.1 mg/dL (0.0-1.0); Blood Urea Nitrogen 13 mg/dL (9-16); Carbon Dioxide 25 mmol/L (22-29); Chloride 104 mmol/L (96-108); Creatinine Clr Calc Pharmacy 134.1; Estimated Glomerular Filt Rate > 60; Glucose Random 101 mg/dL (60-115); Lipase 27 U/L (8-78); Potassium 4.4 mmol/L (3.3-5.1); Sodium 141 mmol/L (135-145); Total Protein 7.9 g/dL (6.5-8.0)
[2022-02-05 06:13] LABS: COVID-19 Test Negative (Negative)
[2022-02-05] MEDS: Pantoprazole Sodium 40 MG/10 ML VIAL IVPUSH (07:56)
[2022-02-05] MEDS: Morphine Sulfate 4 MG/ML CARTRIDGE 3 MG IVPUSH ×5 (07:56→23:59)
[2022-02-05] MEDS: 0.9 % Sodium Chloride Flush 3 ML SYRINGE IVFLUSH ×2 (07:58→15:53)
--- NOTE | 2022-02-05 09:22 | PHA.MEDREC ---
Pharmacy Consult ? Medication Reconciliation Pharmacy has completed the medication reconciliation.
--- NOTE | 2022-02-05 11:16 | PM.HPGS ---
History of Present Illness History of Present Illness Date of Service: 02/09/22 Chief complaint: Partial small bowel obstruction Narrative: Rod Kay is a 31 year old male admitted for abdominal pain and vomitting. He says this started yesterday afternoon/early evening. He had a few episodes of vomitting throughout the night. He has been admitted in the past because of partial small-bowel obstruction. 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 At some point, I also had a colostomy says. He has had surgeries for small-bowel obstruction as well in [employer]. He was admitted here in 2018 and 2020 for partial small-bowel obstruction. He had an NG tube placed in the ER which he says has provided a lot of relief with regards to his nausea. He had BMs and flatus yesterday. Review of Systems Constitutional: Constitutional: Denies chills and Denies fever(s) Cardiovascular: Cardiovascular: Denies chest pain, Denies dyspnea and Denies dyspnea on exertion Respiratory: Respiratory: Denies cough, Denies dyspnea and Denies dyspnea on exertion Gastrointestinal: Gastrointestinal: Denies hematochezia and Denies change in bowel habits Genitourinary: Genitourinary: Denies hematuria and Denies difficulty urinating Musculoskeletal: Musculoskeletal: Denies back pain and Denies limited range of motion Neurologic: Denies focal weakness and Denies convulsions Psychiatric: Psychiatric: Denies depression and Denies mood swings PMFSH Past Medical History Medical History Chronic GERD Gout History of varicose veins Klippel Trenaunay syndrome Morbid obesity Overweight Partial small bowel obstruction Partial small bowel obstruction SBO (small bowel obstruction) Family History Family History Father No problems noted. Mother No problems noted. Maternal Grandmother Hx of colon cancer, stage I Surgical History Surgical History History of bowel resection History of colonoscopy History of laparotomy History of vascular surgery Hx of endoscopy Hx of tonsillectomy Status post orchiopexy Social History Social History Household Members: Family Household Members Other:: mother Housing: House Do you presently have visiting nurse or other home services: No Alcohol intake: never Patient Tobacco Use Status: Never used Tobacco service: No Current occupational status: disabled Meds Allergies Allergy/AdvReac Type Severity Reaction Status Date / Time Sulfa (Sulfonamide Allergy Intermediate SWOLLEN Verified 10/13/21 09:59 Antibiotics) TONGUE [SULFA (SULFONAMIDE ANTIBIOTICS)] sulfa Allergy Unknown swollen Uncoded 09/20/20 16:15 tongue Active Medications: Current Medications Morphine Sulfate (Morphine Sulfate 4 Mg/Ml Cartridge) 3 mg IVPUSH Q4H PRN; Protocol PRN Reason: Pain, Severe (Pain Scale 7-10) Last Admin: 02/05/22 07:56 Dose: 3 mg Ondansetron HCl (Ondansetron Hcl 4 Mg/2 Ml Vial) 4 mg IVPUSH Q8H PRN PRN Reason: Nausea and Vomiting Last Admin: 02/05/22 07:56 Dose: 4 mg Pantoprazole Sodium (Pantoprazole Sodium 40 Mg/10 Ml Vial) 40 mg IVPUSH DAILY@629 [facility] Last Admin: 02/05/22 07:56 Dose: 40 mg Sodium Chloride (0.9 % Sodium Chloride Flush 3 Ml Syringe) 3 ml IVFLUSH [facility] Last Admin: 02/05/22 07:58 Dose: 3 ml Home Medications Medication Instructions Recorded Confirmed Last Taken Type loratadine 10 mg tablet 10 mg PO DAILY PRN Allergy Symptoms 02/05/22 02/05/22 Unknown History naproxen 500 mg tablet 1 tab PO Q12H PRN pain 02/05/22 02/05/22 Unknown History pantoprazole 40 mg tablet,delayed 40 mg PO DAILY@0630 02/05/22 02/05/22 02/04/22 History release Physical Exam Vital Signs: Vital Signs: Last Vital Signs Temp 98.4 F 02/05/22 07:40 Pulse 77 02/05/22 08:30 Resp 18 02/05/22 08:30 BP 120/70 02/05/22 08:30 Pulse Ox 93 02/05/22 08:30 O2 Del Method 02/05/22 08:30 BMI result Body Mass Index 44.0 Const: Other: Morbidly obese General: comfortable and no acute distress Orientation/consciousness: patient oriented x3 Neck: Neck: Yes no lymphadenopathy Resp: Auscultation: clear to auscultation bilaterally Cardio: Rhythm: regular rhythm GI: Other: obese Palpation (GI): Soft to palpation, Tenderness to palpation present (GI) ( mild tenderness diffusely) and no guarding Neuro: General: patient oriented x3 Results Results Labs: Short CBC 02/05/22 Range/Units 03:49 WBC 8.6 (4.8-10.8) X10*3/uL Hgb 17.2 (14.0-18.0) g/dl Hct 48.2 (42.0-52.0) % Plt Count 237 (160-400) X10*3/uL BMP 02/05/22 03:49 Sodium 141 Potassium 4.4 Chloride 104 Carbon Dioxide 25 BUN 13 Creatinine 0.95 Calcium 10.0 D Liver Function 02/05/22 Range/Units 03:49 Total Bilirubin 1.1 H (0.0-1.0) mg/dL AST 62 H (5-37) U/L ALT 126 H (0-40) U/L Alkaline Phosphatase 51 (39-117) U/L Albumin 5.0 (3.5-5.0) g/dL Additional studies: Laboratory Results WBC 8.6 X10*3/uL (4.8-10.8) 02/05/22 03:49 RBC 5.70 X10*6/uL (4.60-5.80) 02/05/22 03:49 Hgb 17.2 g/dl (14.0-18.0) 02/05/22 03:49 Hct 48.2 % (42.0-52.0) 02/05/22 03:49 MCV 84.6 fL (80.0-98.0) 02/05/22 03:49 MCH 30.2 pg (27.0-33.0) 02/05/22 03:49 MCHC 35.7 g/dl (31.0-36.0) 02/05/22 03:49 RDW 13.0 % (11.0-16.0) 02/05/22 03:49 Plt Count 237 X10*3/uL (160-400) 02/05/22 03:49 MPV 9.2 fL (9.4-12.4) L 02/05/22 03:49 Immature Gran % (Auto) 1.2 % (0.0-0.4) H 02/05/22 03:49 Neut % (Auto) 66.7 % (45-73) 02/05/22 03:49 Lymph % (Auto) 21.7 % (20-40) 02/05/22 03:49 [place] % (Auto) 8.0 % (2-11) 02/05/22 03:49 Eos % (Auto) 2.1 % (0-4) 02/05/22 03:49 Baso % (Auto) 0.3 % (0-2) 02/05/22 03:49 Lymph # (Auto) 1.9 X10*3/uL (1.2-4.9) 02/05/22 03:49 Hudson # (Auto) 0.7 X10*3/uL (0.1-1.2) 02/05/22 03:49 Eos # (Auto) 0.2 X10*3/uL (0.0-0.4) 02/05/22 03:49 Baso # (Auto) 0.0 X10*3/uL (0.0-0.2) 02/05/22 03:49 Abs Immat Gran (auto) 0.10 X10*3/uL (0.00-0.03) H 02/05/22 03:49 Absolute Neuts (auto) 5.8 x10*3/uL (2.0-8.3) 02/05/22 03:49 Absolute Nucleated RBC 0.000 X10*3/uL (0.0-0.012) 02/05/22 03:49 Nucleated RBC % (auto) 0.0 /100WBC (0.0-0.2) 02/05/22 03:49 Sodium 141 mmol/L (135-145) 02/05/22 03:49 Potassium 4.4 mmol/L (3.3-5.1) 02/05/22 03:49 Chloride 104 mmol/L (96-108) 02/05/22 03:49 Carbon Dioxide 25 mmol/L (22-29) 02/05/22 03:49 Anion Gap 16 (12-20) 02/05/22 03:49 BUN 13 mg/dL (9-16) 02/05/22 03:49 Creatinine 0.95 mg/dL (0.5-1.4) 02/05/22 03:49 Estim Creat Clear Calc 134.1 02/05/22 03:49 Estimated GFR > 60 02/05/22 03:49 Random Glucose 101 mg/dL (60-115) 02/05/22 03:49 Calcium 10.0 mg/dL (8.4-10.2) D 02/05/22 03:49 Total Bilirubin 1.1 mg/dL (0.0-1.0) H 02/05/22 03:49 AST 62 U/L (5-37) H 02/05/22 03:49 ALT 126 U/L (0-40) H 02/05/22 03:49 Alkaline Phosphatase 51 U/L (39-117) 02/05/22 03:49 Total Protein 7.9 g/dL (6.5-8.0) 02/05/22 03:49 Albumin 5.0 g/dL (3.5-5.0) 02/05/22 03:49 Lipase 27 U/L (8-78) 02/05/22 03:49 COVID-19 ([facility]ACE) Negative (Negative) 02/05/22 05:56 COVID-19 Clin Com See Note 02/05/22 05:56 Impressions Abdomen/Pelvis CT 02/05/22 03:36 IMPRESSION: * Findings compatible with small bowel obstruction as described. In August 2020, there are also dilated loops of small bowel, however on that examination, there is no appreciable transition point. Also, on the current examination, there is an area where the small bowel loops appear matted together possibly representing an internal hernia. * No evidence of vascular compromise. * Mild splenomegaly. * Vascular anomalies as described. Chest X-Ray 02/05/22 05:52 FINDINGS/IMPRESSION: Enteric tube terminates within the stomach. Normal symmetric lung volumes. No parenchymal consolidation. No pleural effusion. No pneumothorax. Cardiomediastinal silhouette and pulmonary vascularity are within normal limits. No acute osseous abnormalities. Assessment and Plan (1) Partial small bowel obstruction: Status: Acute He has partial small-bowel obstruction had been admitted multiple times in the past for this. Current exam is benign. NG tube in place which has provided relief. I have reviewed his CAT scan. There was note of some matted bowel loops together and although no hernia is not ruled out, clinical exam does not appear to be highly suggestive of this. We will keep the NG tube in place. He will be hydrated. I explained the plan to him and his mother was at bedside . Etiology of PSBO likely from postop adhesions from multiple previous abdominal surgeries. Quality Stroke Does the patient have a stroke diagnosis?: No VTE Prior VTE?: No VTE Risk Level:: Medical - low VTE Device Contraindication: N/A - Device Ordered VTE Drug Contraindication: Treatment Not Indicated Procedures Date of Service Date of Service: 02/05/22
--- NOTE | 2022-02-05 16:47 | PC.NURSE ---
Pt alert and oriented x4, calm and cooperative. Pt states pain has improved with meds given. Denies nausea now. IV intact not infusing anything now. NG tube remains in place to low intermittent suction, draining brown drainage. Pt voiding 700ml output today, denies issues with urinating. Vitals stable. Pt remains NPO. Call x1 for report, waiting for call back.
--- NOTE | 2022-02-05 17:49 | PM.EVENT ---
Event Note Date of Service: 02/05/22 Event Note: seen on afternoon rounds says he has back pain but abdomen feels better has passed a lot of flatus this afternoon abd soft NGT in place see how much output from NGT overnight, possibly dc tomorrow if he continues to have good flatus looks well
[2022-02-06] MEDS: Dextrose 5 % and Lactated Ring 1,000 ML 125 ML IVCONT ×4 (00:13→22:10)
[2022-02-06 03:15] VITALS: BP 157/85; PULSE 70; RESP 16; TEMP 37.3; O2SAT 95
[2022-02-06] MEDS: Morphine Sulfate 4 MG/ML CARTRIDGE 3 MG IVPUSH ×5 (03:59→21:22)
[2022-02-06] MEDS: Pantoprazole Sodium 40 MG/10 ML VIAL IVPUSH (05:51)
[2022-02-06 08:00] VITALS: BP 134/71; PULSE 99; RESP 16; TEMP 37.6; O2SAT 90
[2022-02-06] MEDS: 0.9 % Sodium Chloride Flush 3 ML SYRINGE IVFLUSH (08:14)
--- NOTE | 2022-02-06 10:11 | PM.PNGS ---
Subjective Subjective Date of Service: 02/06/22 Interval history: Patient feels improved but mainly complains of nasogastric tube irritating his throat. He is passing ?lots of flatus? but no bowel movement. Physical Exam Vital Signs: Vital Signs: Last Vital Signs Temp 99.6 F 02/06/22 08:00 Pulse 99 02/06/22 08:00 Resp 16 02/06/22 08:00 BP 134/71 02/06/22 08:00 Pulse Ox 90 L 02/06/22 08:00 O2 Del Method 02/06/22 08:00 O2 Flow Rate 2.0 02/06/22 08:00 BMI result Body Mass Index 44.5 Const: General: healthy appearing Nutritional Appearance: well nourished Orientation/consciousness: patient oriented x3 Limitations: no limitations Resp: Effort & Inspection: normal respiratory effort GI: Inspection: Yes normal to inspection Palpation (GI): Soft to palpation, nontender, no guarding and not rigid Percussion: Yes dullness to percussion Neuro: General: patient oriented x3 Extrem: General: No edema Objective Data Active Medications Dextrose/Lactated Ringer's (D5lr) 1,000 mls @ 125 mls/hr IVCONT .Q8H [facility] Last Admin: 02/06/22 08:14 Dose: 125 mls/hr Documented By: KUN Morphine Sulfate (Morphine Sulfate 4 Mg/Ml Cartridge) 3 mg IVPUSH Q4H PRN; Protocol PRN Reason: Pain, Severe (Pain Scale 7-10) Last Admin: 02/06/22 08:12 Dose: 3 mg Documented By: KUN Ondansetron HCl (Ondansetron Hcl 4 Mg/2 Ml Vial) 4 mg IVPUSH Q8H PRN PRN Reason: Nausea and Vomiting Last Admin: 02/05/22 15:59 Dose: 4 mg Documented By: YANET Pantoprazole Sodium (Pantoprazole Sodium 40 Mg/10 Ml Vial) 40 mg IVPUSH DAILY@0630 [facility] Last Admin: 02/06/22 05:51 Dose: 40 mg Documented By: LINDA Sodium Chloride (0.9 % Sodium Chloride Flush 3 Ml Syringe) 3 ml IVFLUSH QSHIFT [facility] Last Admin: 02/06/22 08:14 Dose: 3 ml Documented By: KUN Labs CBC & Chem 7: 02/05/22 03:49 02/05/22 03:49 Procedures Date of Service Date of Service: 02/06/22 Progress Note: A&P Assessment and plan (1) Partial small bowel obstruction: Status: Acute Plan Overall the patient is improved with decreased abdominal pain and no further nausea or vomiting. Nasogastric tube does not appear to be draining much at this time. His abdomen is softer with no tympany or distention. Will trial clamping of the nasogastric tube with residual checks after 4 hours. If there is low residual, nasogastric tube will be removed. Continue IV fluids for now. Time Spent With Patient Time: Total time spent is greater than 50% in coordination of care (as documented) at patient's floor/unit and/or counseling patient: No Severe Sepsis: No Severe Sepsis Quality Stroke Does the patient have a stroke diagnosis?: No VTE Prior VTE?: No VTE Risk Level:: Medical - low VTE Device Contraindication: N/A - Device Ordered VTE Drug Contraindication: Treatment Not Indicated
[2022-02-06 12:00] VITALS: BP 146/75; PULSE 93; RESP 16; TEMP 37.9; O2SAT 93
--- NOTE | 2022-02-06 14:45 | MHC.CM.PN ---
PATIENT LIVES WITH HCP/MOTHER COPY REQUESTED. IF NONE IS FOUND, HE IS AWARE THAT CASE MANAGEMENT CAN ASSIST WITH COMPLETION WHILE HE IS HERE. HE DOES HAVE CRUTCHES AND A CANE IN THE HOME. NO VNA OR AT-HOME SERVICES. PATIENT STATES THAT PLAN IS FOR NG REMOVAL DIET AND HE IS HOPEFUL THAT HE CAN RETURN HOME WITH NO FURTHER INTERVENTIONS. IMM 02/06 ERIC
[2022-02-06 15:53] VITALS: BP 133/75; PULSE 93; RESP 17; TEMP 37.4; O2SAT 92
[2022-02-06 19:45] VITALS: BP 131/68; PULSE 99; RESP 18; TEMP 37.6; O2SAT 92
[2022-02-06] MEDS: NaPROXEN 500 MG TABLET PO (19:46)
--- NOTE | 2022-02-06 19:51 | PC.NURSE ---
pt c/o 04/07 left foot throbbing,sharp pain radiating up the calf. notified u/s of left leg ordered.pt medicated with naproxen 500mg po.
[2022-02-06 23:48] VITALS: BP 137/77; PULSE 95; RESP 18; TEMP 36.6; O2SAT 92
[2022-02-07] VITALS (7 sets, daily range): BP systolic 133–152; BP diastolic 65–77; PULSE 92–103; RESP 16–19; TEMP 36.8–37.9; O2SAT 93–96
[2022-02-07] MEDS: Morphine Sulfate 4 MG/ML CARTRIDGE 3 MG IVPUSH ×4 (01:36→19:30)
[2022-02-07] MEDS: Pantoprazole Sodium 40 MG/10 ML VIAL IVPUSH (05:45)
[2022-02-07] MEDS: Dextrose 5 % and Lactated Ring 1,000 ML 125 ML IVCONT ×3 (05:45→21:35)
[2022-02-07 06:53] LABS: Hematocrit 44.5 % (42.0-52.0); Hemoglobin 15.6 g/dl (14.0-18.0); Mean Corpuscular HGB Conc 35.1 g/dl (31.0-36.0); Mean Corpuscular Hemoglobin 30.3 pg (27.0-33.0); Mean Corpuscular Volume 86.4 fL (80.0-98.0); Mean Platelet Volume 9.3 fL (9.4-12.4); Platelet Count 189 X10*3/uL (160-400); Red Blood Count 5.15 X10*6/uL (4.60-5.80); Red Cell Distribution Width 12.6 % (11.0-16.0); White Blood Count 8.2 X10*3/uL (4.8-10.8)
[2022-02-07 07:33] LABS: Anion Gap 13 (12-20); Blood Urea Nitrogen 7 mg/dL (9-16); Carbon Dioxide 26 mmol/L (22-29); Chloride 104 mmol/L (96-108); Creatinine Clr Calc Pharmacy 139.4; Estimated Glomerular Filt Rate > 60; Glucose Random 106 mg/dL (60-115); Potassium 4.3 mmol/L (3.3-5.1); Sodium 139 mmol/L (135-145)
[2022-02-07] MEDS: NaPROXEN 500 MG TABLET PO (08:43)
--- NOTE | 2022-02-07 10:58 | PM.PNGS ---
Subjective Subjective Date of Service: 02/07/22 Interval history: Patient denies abdominal pain, nausea or vomiting. Does complain of left foot pain which is somewhat improved from yesterday. Pain improved with naproxen. Physical Exam Vital Signs: Vital Signs: Last Vital Signs Temp 100.2 F 02/07/22 08:00 Pulse 103 H 02/07/22 08:00 Resp 19 02/07/22 08:00 BP 140/74 H 02/07/22 08:00 Pulse Ox 93 02/07/22 08:00 O2 Del Method 02/07/22 08:00 O2 Flow Rate 2.0 02/06/22 12:00 BMI result Body Mass Index 44.5 Const: General: comfortable and no acute distress Nutritional Appearance: obese Orientation/consciousness: patient oriented x3 Resp: Effort & Inspection: normal respiratory effort, no audible wheezes and no cough GI: Inspection: Yes normal to inspection Palpation (GI): Soft to palpation, nontender, no guarding and not rigid Percussion: Yes normal to percussion Auscultation: normal bowel sounds Skin: General skin exam: no rashes or lesions noted Neuro: General: patient oriented x3 Extrem: Other: 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 General: Yes no calf tenderness Objective Data Active Medications Dextrose/Lactated Ringer's (D5lr) 1,000 mls @ 125 mls/hr IVCONT .Q8H [facility] Last Admin: 02/07/22 05:45 Dose: 125 mls/hr Documented By: LINDA Morphine Sulfate (Morphine Sulfate 4 Mg/Ml Cartridge) 3 mg IVPUSH Q4H PRN; Protocol PRN Reason: Pain, Severe (Pain Scale 7-10) Last Admin: 02/07/22 06:43 Dose: 3 mg Documented By: LINDA Naproxen (Naproxen 500 Mg Tablet) 500 mg PO Q12H PRN PRN Reason: leg pain Last Admin: 02/07/22 08:43 Dose: 500 mg Documented By: KUN Ondansetron HCl (Ondansetron Hcl 4 Mg/2 Ml Vial) 4 mg IVPUSH Q8H PRN PRN Reason: Nausea and Vomiting Last Admin: 02/05/22 15:59 Dose: 4 mg Documented By: YANET Pantoprazole Sodium (Pantoprazole Sodium 40 Mg/10 Ml Vial) 40 mg IVPUSH DAILY@0630 [facility] Last Admin: 02/07/22 05:45 Dose: 40 mg Documented By: LINDA Sodium Chloride (0.9 % Sodium Chloride Flush 3 Ml Syringe) 3 ml IVFLUSH QSHIFT [facility] Last Admin: 02/07/22 08:45 Dose: Not Given Documented By: KUN Non-Admin Reason: IV Running Labs CBC & Chem 7: 02/07/22 06:22 02/07/22 06:22 Labs: Laboratory Results - last 24 hr 02/07/22 02/07/22 06:22 06:22 MCV 86.4 MCH 30.3 MCHC 35.1 RDW 12.6 Plt Count 189 MPV 9.3 L Absolute Nucleated RBC 0.000 Nucleated RBC % (auto) 0.0 Anion Gap 13 Estim Creat Clear Calc 139.4 Estimated GFR > 60 Random Glucose 106 Calcium 9.0 D Procedures Date of Service Date of Service: 02/07/22 Progress Note: A&P Assessment and plan (1) Partial small bowel obstruction: Status: Acute Plan Patient tolerated removal of nasogastric tube denies any further abdominal pain, nausea or vomiting. Abdomen is soft and nondistended with no tenderness. There is no tympany to percussion. Will start on clear liquids and advanced as tolerated. Time Spent With Patient Time: Total time spent is greater than 50% in coordination of care (as documented) at patient's floor/unit and/or counseling patient: Quality Stroke Does the patient have a stroke diagnosis?: No VTE Prior VTE?: No VTE Risk Level:: Medical - low VTE Device Contraindication: N/A - Device Ordered VTE Drug Contraindication: Treatment Not Indicated
[2022-02-08] MEDS: NaPROXEN 500 MG TABLET PO ×2 (00:20→14:52)
[2022-02-08 03:59] VITALS: BP 133/73; PULSE 84; RESP 14; TEMP 36.7; O2SAT 93
[2022-02-08] MEDS: Dextrose 5 % and Lactated Ring 1,000 ML 125 ML IVCONT (05:21)
[2022-02-08] MEDS: Pantoprazole Sodium 40 MG/10 ML VIAL IVPUSH (05:25)
[2022-02-08 08:00] VITALS: BP 137/75; PULSE 76; RESP 19; TEMP 36.7; O2SAT 97
--- NOTE | 2022-02-08 08:28 | PM.PNGS ---
Subjective Subjective Date of Service: 02/08/22 Interval history: denies abdominal pain passing flatus tolerating liquids wants to eat complains of left, lower leg pain and swelling Physical Exam Vital Signs: Vital Signs: Last Vital Signs Temp 98.1 F 02/08/22 08:00 Pulse 76 02/08/22 08:00 Resp 19 02/08/22 08:00 BP 137/75 02/08/22 08:00 Pulse Ox 97 02/08/22 08:00 O2 Del Method 02/08/22 08:00 O2 Flow Rate 2.0 02/06/22 12:00 BMI result Body Mass Index 44.5 Const: General: comfortable and no acute distress Resp: Effort & Inspection: normal respiratory effort Cardio: Rate: regular rate GI: Palpation (GI): Soft to palpation, not firm and nontender Objective Data Active Medications Dextrose/Lactated Ringer's (D5lr) 1,000 mls @ 125 mls/hr IVCONT .Q8H [facility] Last Admin: 02/08/22 05:21 Dose: 125 mls/hr Documented By: KYRIE Morphine Sulfate (Morphine Sulfate 4 Mg/Ml Cartridge) 3 mg IVPUSH Q4H PRN; Protocol PRN Reason: Pain, Severe (Pain Scale 7-10) Last Admin: 02/07/22 19:30 Dose: 3 mg Documented By: SHWETA Naproxen (Naproxen 500 Mg Tablet) 500 mg PO Q12H PRN PRN Reason: leg pain Last Admin: 02/08/22 00:20 Dose: 500 mg Documented By: KYRIE Ondansetron HCl (Ondansetron Hcl 4 Mg/2 Ml Vial) 4 mg IVPUSH Q8H PRN PRN Reason: Nausea and Vomiting Last Admin: 02/05/22 15:59 Dose: 4 mg Documented By: YANET Sodium Chloride (0.9 % Sodium Chloride Flush 3 Ml Syringe) 3 ml IVFLUSH [facility] Last Admin: 02/08/22 00:24 Dose: Not Given Documented By: KRYIE Non-Admin Reason: IV Running Labs CBC & Chem 7: 02/07/22 06:22 02/07/22 06:22 Procedures Date of Service Date of Service: 02/08/22 Progress Note: A&P Assessment and plan (1) Partial small bowel obstruction: Status: Acute Assessment and Plan: symptoms much improved diet as tolerated tenderness on the left foot, ankle and left calf venous duplex ordered encourage oral fluids abdominal exam benign Time Spent With Patient Time: Total time spent is greater than 50% in coordination of care (as documented) at patient's floor/unit and/or counseling patient: Quality Stroke Does the patient have a stroke diagnosis?: No VTE Prior VTE?: No VTE Risk Level:: Medical - low VTE Device Contraindication: N/A - Device Ordered VTE Drug Contraindication: Treatment Not Indicated
[2022-02-08] MEDS: oxyCODONE HCl Immed Release 5 MG TABLET PO ×3 (10:47→22:00)
[2022-02-08 12:00] VITALS: BP 144/75; PULSE 98; RESP 20; TEMP 36.7; O2SAT 97
[2022-02-08 15:43] VITALS: BP 142/69; PULSE 91; RESP 17; TEMP 36.6; O2SAT 93
[2022-02-08] MEDS: 0.9 % Sodium Chloride Flush 3 ML SYRINGE IVFLUSH (16:56)
--- NOTE | 2022-02-08 17:12 | PC.NURSE ---
P patient refuses sequentials stockings I Dr. Green notified ,encouraged activity E will monitor
[2022-02-08 19:44] VITALS: BP 149/79; PULSE 88; RESP 20; TEMP 36.8; O2SAT 95
[2022-02-08 23:42] VITALS: BP 116/51; PULSE 89; RESP 16; TEMP 37.4; O2SAT 99
[2022-02-09] MEDS: 0.9 % Sodium Chloride Flush 3 ML SYRINGE IVFLUSH ×2 (00:20→08:56)
[2022-02-09] MEDS: NaPROXEN 500 MG TABLET PO (03:46)
[2022-02-09 04:00] VITALS: BP 155/75; PULSE 79; RESP 16; TEMP 36.6; O2SAT 94
[2022-02-09 07:39] VITALS: BP 113/52; PULSE 70; RESP 18; TEMP 36.3; O2SAT 96
--- NOTE | 2022-02-09 07:51 | P.PNGS_ITS ---
Subjective Subjective Date of Service: 02/09/22 Interval history: tolerating diet passing flatus denies abdl pain has foot pain, left, improving, with better range of motion Physical Exam Vital Signs: Vital Signs: Last Vital Signs Temp 97.3 F 02/09/22 07:39 Pulse 70 02/09/22 07:39 Resp 18 02/09/22 07:39 BP 113/52 L 02/09/22 07:39 Pulse Ox 96 02/09/22 07:39 O2 Del Method 02/09/22 07:39 O2 Flow Rate 2.0 02/06/22 12:00 BMI result Body Mass Index 44.5 Const: General: comfortable and no acute distress Resp: Effort & Inspection: normal respiratory effort Cardio: Rate: regular rate GI: Palpation (GI): Soft to palpation, not firm and nontender Objective Data Active Medications Morphine Sulfate (Morphine Sulfate 4 Mg/Ml Cartridge) 3 mg IVPUSH Q4H PRN; Protocol PRN Reason: Pain, Severe (Pain Scale 7-10) Last Admin: 02/07/22 19:30 Dose: 3 mg Documented By: SHWETA Naproxen (Naproxen 500 Mg Tablet) 500 mg PO Q12H PRN PRN Reason: leg pain Last Admin: 02/09/22 03:46 Dose: 500 mg Documented By: KYRIE Ondansetron HCl (Ondansetron Hcl 4 Mg/2 Ml Vial) 4 mg IVPUSH Q8H PRN PRN Reason: Nausea and Vomiting Last Admin: 02/05/22 15:59 Dose: 4 mg Documented By: YANET Oxycodone HCl (Oxycodone Hcl Immed Release 5 Mg Tablet) 5 mg PO Q4H PRN PRN Reason: Pain, Moderate (Pain Scale 4-6 Last Admin: 02/08/22 22:00 Dose: 5 mg Documented By: SHAKILA Sodium Chloride (0.9 % Sodium Chloride Flush 3 Ml Syringe) 3 ml IVFLUSH [facility] Last Admin: 02/09/22 00:20 Dose: 3 ml Documented By: KYRIE Labs CBC & Chem 7: 02/07/22 06:22 02/07/22 06:22 Procedures Date of Service Date of Service: 02/09/22 Progress Note: A&P Assessment and plan (1) Partial small bowel obstruction: Status: Acute Assessment and Plan: good PO intake obstruction clinically resolved abd soft, benign foot pain on left better - Duplex negative for DVT has had chronci issues with left leg and foot from 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
[2022-02-09] MEDS: Acetaminophen 325 MG TABLET 650 MG PO (11:00)
[2022-02-09 11:29] VITALS: BP 118/51; PULSE 81; RESP 18; TEMP 36.1; O2SAT 93
[2022-02-09 15:16] VITALS: BP 139/80; PULSE 94; RESP 20; TEMP 36.3; O2SAT 95
--- NOTE | 2022-02-09 15:45 | PM.EVENT ---
Event Note Date of Service: 02/09/22 Event Note: denies abdominal pain tolerating diet well left foot pain has improved - pain still present but seems to be back to baseline he is able to walk today he wants to go home will [place] home instructed to follow-up with primary care physician his mother was at bedside
--- NOTE | 2022-02-09 16:18 | MHC.CM.PN ---
HOME - SELF CARE RN AWARE
--- NOTE | 2022-02-11 16:16 | PM.DS ---
DS: Providers Provider Date of Service: 02/09/22 Date of admission: 02/05/22 07:28 Date of discharge: 02/09/22 Primary care physician: PATRICIA Gallagher DS: Diagnosis Discharge Diagnosis (1) Partial small bowel obstruction: Status: Acute DS: Summary Hospital Course Hospital Course: 31-year-old male with history of multiple intra-abdominal surgeries from childhood, admitted on 02/05/2022 because of abdominal pain and vomiting. His CAT scan was suggestive partial small-bowel obstruction. He had an NG tube placed in the ER. He this had provided relief with this abdominal pain and vomiting. He was managed in the med surge unit. The NG tube was kept until his third hospital day. He was started on clear liquids. He tolerated this showed his diet was gradually advanced. He also had problems with left foot pain from his multiple previous surgeries. This was chronic but he would occasionally have exacerbations. This responded to leg elevation and anti-inflammatories. He continued to tolerate diet advancement. He was therefore discharged on February 09, 2022. At the time of his discharge, he was tolerating regular diet and had good bowel movements. He had a very benign exam. Time spent discussing smoking cessation with patient: 3 to 10 minutes Time Spent with Patient Time attestation: Total time spent providing and/or coordinating discharge services: Discharge coordination time: Less than 30 minutes Quality: Safe Use of Opioids Does Pt have an Active Cancer Diagnosis on the Problem List?: No Quality: Stroke Does the patient have a stroke diagnosis?: No Reason for No Anti-thrombotic at DC: Not indicated Reason for No Anticoagulant at DC: Not indicated Physical Exam Vital Signs: Vital Signs: Last Vital Signs Temp 97.3 F 02/09/22 15:16 Pulse 94 02/09/22 15:16 Resp 20 02/09/22 15:16 BP 139/80 02/09/22 15:16 Pulse Ox 95 02/09/22 15:16 O2 Del Method 02/09/22 15:16 O2 Flow Rate 2.0 02/06/22 12:00 BMI result Body Mass Index 44.5 Const: Other: Morbidly obese General: comfortable and no acute distress Orientation/consciousness: patient oriented x3 Neck: Neck: Yes no lymphadenopathy Resp: Auscultation: clear to auscultation bilaterally Cardio: Rhythm: regular rhythm GI: Palpation (GI): Soft to palpation, nontender and no guarding Neuro: General: patient oriented x3 Discharge Plan Discharge Patient Disposition: Home, Self-Care Discharge Diagnosis: partial small bowel obstruction Referrals: Ericka Gardner PA [Primary Care Provider] - 1 Week Discharge Medications: Continued naproxen 500 mg tablet 1 tab PO Q12H PRN (Reason: pain) pantoprazole 40 mg tablet,delayed release (DR/EC) 40 mg PO DAILY@0630 loratadine 10 mg Tablet 10 mg PO DAILY PRN (Reason: Allergy Symptoms) Discharge Orders: Discharge Order (Routine); Ordered 02/09/22 Ordered By: Bernabe Green Activity on Discharge: As tolerated Stand Alone Forms: Patient Portal Discharge page Care Plan Goals: control of chronic left foot pain Health Concerns: chronic left foot pain possible recurrence of bowel obstruction Plan of Treatment: ffup with PCP Assessment: doing well Discharge Date/Time: 02/09/22 16:25
== END 2022-02-09 16:25 | disposition home or self-care (01) | DRG 389 ==
LOC: HO.ED 06:30 → HO.EDOVER 07:39 → HO.S3 16:32
PROVIDERS: Surgery; Admitting Provider Surgery; Emergency Provider Internal Medicine; PCP Physician Assistant; Visit Provider Surgery
DX: K91.31 Postprocedural partial intestinal obstruction (principal); Q87.2 Congenital malformation syndromes predominantly involving limbs; Z68.41 Body mass index [BMI] 40.0-44.9, adult; K21.9 Gastro-esophageal reflux disease without esophagitis; M10.9 Gout, unspecified; E66.01 Morbid (severe) obesity due to excess calories; Z20.822 Contact with and (suspected) exposure to COVID-19; Z79.899 Other long term (current) drug therapy
CPT/HCPCS: 36415; 71045; 74176; 80048; 80053; 83690; 85025; 85027; 87635; 93971; 96361; 96374; 96375; 96376; 99285; J2270; J2405

== ENCOUNTER 2022-11-16 15:08 | Emergency (ER) | payer OTHER, MEDICAID, SELFPAY ==
--- NOTE | ~2022-11-16 | US_ITS ---
EXAMINATION: US SCROTUM US SCROTUM DOPPLER CLINICAL INFORMATION: Right-sided testicular pain. History of left-sided orchiopexy. COMPARISON: CT abdomen/pelvis from 02/05/2022. TECHNIQUE: A sonogram of the scrotum was performed assessing jamison-scale appearance and color Doppler flow. Spectral Doppler analysis of the arterial and venous flow were performed in the testes bilaterally. FINDINGS: The right testicle measures 4.9 x 2.3 x 3.1 cm and left testicle 4 x 2.2 x 3 cm. No testicular microlithiasis or solid mass. A simple cyst along the tunica albuginea of the left testicle measures up to 0.9 cm in maximum dimension. The color Doppler images with spectral waveforms show presence of normal arterial and venous flow within each testicle. A 1.6 x 1 x 1.1 cm cyst with low-level internal echoes is observed immediately anterior to the right epididymis, superomedial to the right testicle. There is no suspicious extratesticular lesion. The right and left epididymis are otherwise unremarkable. There is no evidence of hypervascularity in either epididymis. Left-sided varicocele is noted. The left-sided scrotal veins measure up to at least 0.3 cm diameter. US/US scrotum doppler IMPRESSION: * No acute sonographic abnormalities in the scrotum. No evidence of epididymitis, orchitis or torsion. * A 1.6 cm benign cyst of the right hemiscrotum is identified just anterior to the epididymis. * There is a simple tunica albuginea cyst of the left testicle. No suspicious lesions. * Left-sided varicocele is noted.
--- NOTE | ~2022-11-16 | US_ITS ---
EXAMINATION: US SCROTUM US SCROTUM DOPPLER CLINICAL INFORMATION: Right-sided testicular pain. History of left-sided orchiopexy. COMPARISON: CT abdomen/pelvis from 02/05/2022. TECHNIQUE: A sonogram of the scrotum was performed assessing jamison-scale appearance and color Doppler flow. Spectral Doppler analysis of the arterial and venous flow were performed in the testes bilaterally. FINDINGS: The right testicle measures 4.9 x 2.3 x 3.1 cm and left testicle 4 x 2.2 x 3 cm. No testicular microlithiasis or solid mass. A simple cyst along the tunica albuginea of the left testicle measures up to 0.9 cm in maximum dimension. The color Doppler images with spectral waveforms show presence of normal arterial and venous flow within each testicle. A 1.6 x 1 x 1.1 cm cyst with low-level internal echoes is observed immediately anterior to the right epididymis, superomedial to the right testicle. There is no suspicious extratesticular lesion. The right and left epididymis are otherwise unremarkable. There is no evidence of hypervascularity in either epididymis. Left-sided varicocele is noted. The left-sided scrotal veins measure up to at least 0.3 cm diameter. US/US scrotum IMPRESSION: * No acute sonographic abnormalities in the scrotum. No evidence of epididymitis, orchitis or torsion. * A 1.6 cm benign cyst of the right hemiscrotum is identified just anterior to the epididymis. * There is a simple tunica albuginea cyst of the left testicle. No suspicious lesions. * Left-sided varicocele is noted.
--- NOTE | 2022-11-16 15:13 | ED_ITS ---
HPI - General Adult General Chief complaint: Urogenital-Male <PATRICIA Will - Last Filed: 11/16/22 15:15> Stated complaint: r testicle pain <PATRICIA Will - Last Filed: 11/16/22 15:15> Time Seen by Provider: 11/16/22 19:37 <PATRICIA Will - Last Filed: 11/16/22 15:15> Source: patient <Franklin Pacheco MD - Last Filed: 11/17/22 02:12> Mode of arrival: ambulatory <Franklin Pacheco MD - Last Filed: 11/17/22 02:12> Limitations: no limitations <Franklin Pacheco MD - Last Filed: 11/17/22 02:12> History of Present Illness HPI narrative: Patient complaining of pain and slight swelling in right testicle since yesterday no trauma no injuries no erythema no urinary complaints no exposure to STDs <Franklin Pacheco MD - Last Filed: 11/17/22 02:12> Related Data Home medications: Home Medications Medication Instructions Recorded Confirmed loratadine 10 mg tablet 10 mg PO DAILY PRN Allergy Symptoms 02/05/22 02/05/22 naproxen 500 mg tablet 1 tab PO Q12H PRN pain 02/05/22 02/05/22 Previous Rx's Medication Instructions Recorded pantoprazole 40 mg tablet,delayed 40 mg PO BID #60 tabs 05/18/22 release <PATRICIA Will - Last Filed: 11/16/22 15:15> Allergies/adverse reactions: Allergies Allergy/AdvReac Type Severity Reaction Status Date / Time Sulfa (Sulfonamide Allergy Intermediate SWOLLEN Verified 10/13/21 09:59 Antibiotics) TONGUE [SULFA (SULFONAMIDE ANTIBIOTICS)] sulfa Allergy Unknown swollen Uncoded 09/20/20 16:15 tongue <PATRICIA Will - Last Filed: 11/16/22 15:15> Review of Systems Review of Systems: Yes all other systems are reviewed and are negative <rFanklin Pacheco MD - Last Filed: 11/17/22 02:12> PMFSH Past Medical History Medical History: Medical History Chronic GERD Gout History 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 Mother No problems noted. Maternal Grandmother Hx of colon cancer, stage I <PATRICIA Will - Last Filed: 11/16/22 15:15> Social History Social History: Social History Household Members: Family Household Members Other:: mother Housing: House Do you presently have visiting nurse or other home services: No Alcohol intake: never Patient Tobacco Use Status: Never used Tobacco Advance Directives: No Advance Directives Information Provided: No service: No Current occupational status: disabled <PATRICIA Will - Last Filed: 11/16/22 15:15> Physical Exam ED Vital Signs: Vital Signs - 24 hr 11/16/22 15:15 11/16/22 20:03 Temperature 98 F 97.7 F Pulse Rate 74 70 Respiratory Rate 18 16 Blood Pressure 145/70 H 140/64 H Pulse Oximetry 98 98 Oxygen Delivery Method Room Air Room Air BMI result Body Mass Index 43.2 <PATRICIA Will - Last Filed: 11/16/22 15:15> Vital Signs - 24 hr 11/16/22 15:15 11/16/22 20:03 Temperature 98 F 97.7 F Pulse Rate 74 70 Respiratory Rate 18 16 Blood Pressure 145/70 H 140/64 H Pulse Oximetry 98 98 Oxygen Delivery Method Room Air Room Air BMI result Body Mass Index 43.2 <Franklin Pacheco MD - Last Filed: 11/17/22 02:12> Appearance: Alert. Oriented X3. No acute distress. CVS: Normal heart rate and rhythm. Pulses normal. Respiratory: No respiratory distress. Equal air entry bilateral, Abdomen: Soft and nontender. Bowel sounds are present, Scrotum: Normal size testicle nontender small soft tissue swelling on the right scrotal area no skin color changes no signs of infection Neuro: Oriented X 3. <Franklin Pacheco MD - Last Filed: 11/17/22 02:12> Course Course Course Narrative: This is an RME: Additional HPI, ROS, PE not included below will be deferred to primary provider. 32-year-old male presents with right-sided scrotal pain / achey since yesterday intermittent in nature, reports the right testicle is swollen, and it stings and itches. No urinary symptoms. Pain started suddenly. Fluctuates in intensity. Hx of vericocele Physical exam deferred to primary provider as a sensitive exam would be involved and there was no place for privacy here in triage. Plan scrotal ultrasound ordered. Urine. <PATRICIA Will - Last Filed: 11/16/22 15:15> Medical Decision Making Lab Data Labs: Lab Results 11/16/22 Range/Units 19:48 Urine Color Yellow Urine Appearance Clear Urine pH 8.0 (5.0-9.0) Ur Specific [place] 1.020 (1.005-1.025) Urine Protein 30 (1+) H (Neg-Trace) mg/dL Urine Glucose (UA) Negative (Negative) mg/dL Urine Ketones Negative (Negative) mg/dL Urine Blood Negative (Negative) Urine Nitrite Negative (Negative) Ur Leukocyte Esterase Negative (Negative) Urine RBC 0-2 (0-2) /HPF Urine WBC 0-5 (0-5) /HPF Ur Squamous Epith Cells 0-2 (0-2) /HPF Urine Bacteria None Seen (None Seen) Hyaline Casts 0-2 (0-2) /LPF <PATRICIA Will - Last Filed: 11/16/22 15:15> Lab Results 11/16/22 Range/Units 19:48 Urine Color Yellow Urine Appearance Clear Urine pH 8.0 (5.0-9.0) Ur Specific [place] 1.020 (1.005-1.025) Urine Protein 30 (1+) H (Neg-Trace) mg/dL Urine Glucose (UA) Negative (Negative) mg/dL Urine Ketones Negative (Negative) mg/dL Urine Blood Negative (Negative) Urine Nitrite Negative (Negative) Ur Leukocyte Esterase Negative (Negative) Urine RBC 0-2 (0-2) /HPF Urine WBC 0-5 (0-5) /HPF Ur Squamous Epith Cells 0-2 (0-2) /HPF Urine Bacteria None Seen (None Seen) Hyaline Casts 0-2 (0-2) /LPF <Franklin Pacheco MD - Last Filed: 11/17/22 02:12> Radiology Impression Discussion of test interpretation with radiology: I have reviewed the radiologist's reading. <Franklin Pacheco MD - Last Filed: 11/17/22 02:12> Radiologist Impression: ?No acute sonographic abnormalities in the scrotum. No evidence of epididymitis, orchitis or torsion. *? A 1.6 cm benign cyst of the right hemiscrotum is identified just anterior to the epididymis. *? There is a simple tunica albuginea cyst of the left testicle. No suspicious lesions. *? Left-sided varicocele is noted. <Franklin Pacheco MD - Last Filed: 11/17/22 02:12> Discharge Plan Discharge Clinical Impression: Pain in scrotum <PATRICIA Will - Last Filed: 11/16/22 15:15> Patient Disposition: Home, Self-Care <PATRICIA Will - Last Filed: 11/16/22 15:15> Instructions: Scrotal Pain (ED) <PATRICIA Will - Last Filed: 11/16/22 15:15> Additional Instructions: Small benign cyst seen in your right scrotum Tylenol/ibuprofen for pain Follow-up with urologist if any concerns <PATRICIA Will - Last Filed: 11/16/22 15:15> Prescriptions: No Action pantoprazole 40 mg tablet,delayed release (DR/EC) 40 mg PO BID Qty: 60 1RF naproxen 500 mg tablet 1 tab PO Q12H PRN (Reason: pain) loratadine 10 mg Tablet 10 mg PO DAILY PRN (Reason: Allergy Symptoms) <PATRICIA Will - Last Filed: 11/16/22 15:15> Referrals: Giovanni Kaur MD [Physician] - 1 week <PATRICIA Will - Last Filed: 11/16/22 15:15> Interventions: ED Discharge Assessment Last Done: 11/16/22 20:28 <PATRICIA Will - Last Filed: 11/16/22 15:15> Discharge Date/Time: 11/16/22 20:28 <PATRICIA Will - Last Filed: 11/16/22 15:15>
[2022-11-16 15:15] VITALS: BP 145/70; PULSE 74; RESP 18; TEMP 36.6; O2SAT 98; BMI 43.2
[2022-11-16 20:03] VITALS: BP 140/64; PULSE 70; RESP 16; TEMP 36.5; O2SAT 98
[2022-11-16 20:14] LABS: Appearance Urine Clear; Color Urine Yellow; Glucose Urine UA Negative (Negative); Leukocyte Esterase Urine Negative (Negative); Nitrite Urine Negative (Negative); UMIC TRIGGER UACC YES; Urine Blood Negative (Negative); Urine Ketones Negative (Negative); Urine Protein 30 (1+) mg/dL (Neg-Trace)
[2022-11-16 20:19] LABS: Bacteria Urine None Seen (None Seen); Hyaline Casts Urine 0-2 /LPF (0-2); RBC Urine 0-2 /HPF (0-2); Squamous Epithelial Cell Urine 0-2 /HPF (0-2); WBC Urine 0-5 /HPF (0-5)
== END 2022-11-16 20:28 | disposition home or self-care (01) ==
PROVIDERS: Physician Assistant; Emergency Provider Internal Medicine; PCP Physician Assistant
DX: N50.811 Right testicular pain (principal); N50.89 Other specified disorders of the male genital organs; R10.30 Lower abdominal pain, unspecified; Z79.899 Other long term (current) drug therapy
CPT/HCPCS: 76870; 81001; 81003; 93975; 99283; 99284

== ENCOUNTER 2023-01-25 09:32 | Emergency (ER) | payer OTHER, MEDICAID, SELFPAY ==
--- NOTE | ~2023-01-25 | XR_ITS ---
EXAMINATION: Right foot and ankle x-ray CLINICAL INFORMATION: Pain COMPARISON: Right foot x-ray December 2017 TECHNIQUE: 3 views of the right foot and 3 views of the right ankle FINDINGS: Right ankle: Bone alignment is normal. No fracture or dislocation. Normal ankle mortise. Normal soft tissues. Right foot: Bone alignment is normal. No fracture or dislocation. Mild arthritis at the first MTP P MTT joints with joint space narrowing and osteophyte formation. Small calcaneal spur at the Achilles tendon insertion. XR/XR ankle RT 2V IMPRESSION: No fracture or dislocation. Degenerative changes of the first MTP and MTT joints. Small calcaneal spur.
--- NOTE | ~2023-01-25 | XR_ITS ---
EXAMINATION: Right foot and ankle x-ray CLINICAL INFORMATION: Pain COMPARISON: Right foot x-ray December 2017 TECHNIQUE: 3 views of the right foot and 3 views of the right ankle FINDINGS: Right ankle: Bone alignment is normal. No fracture or dislocation. Normal ankle mortise. Normal soft tissues. Right foot: Bone alignment is normal. No fracture or dislocation. Mild arthritis at the first MTP P MTT joints with joint space narrowing and osteophyte formation. Small calcaneal spur at the Achilles tendon insertion. XR/XR foot RT 2V IMPRESSION: No fracture or dislocation. Degenerative changes of the first MTP and MTT joints. Small calcaneal spur.
[2023-01-25 09:38] VITALS: BP 147/64; PULSE 86; RESP 16; TEMP 36.4; O2SAT 96; BMI 42.6
--- NOTE | 2023-01-25 11:25 | ED.EXTPRO ---
HPI - Extremity Problem General Chief complaint: Extremity Problem Stated complaint: R foot pain Time Seen by Provider: 01/25/23 09:58 History of Present Illness HPI Narrative: Patient complains of right ankle and foot pain and swelling for the past 2 days He had no injury, he does have a history of gout and has had similar pain in other parts of the foot from gout flares There is no fever no chills no other joint swollen Related Data Home Medications Medication Instructions Recorded Confirmed loratadine 10 mg tablet 10 mg PO DAILY PRN Allergy Symptoms 02/05/22 02/05/22 naproxen 500 mg tablet 1 tab PO Q12H PRN pain 02/05/22 02/05/22 Previous Rx's Medication Instructions Recorded pantoprazole 40 mg tablet,delayed 40 mg PO BID #60 tabs 05/18/22 release acetaminophen 500 mg tablet 1,000 mg PO QID PRN pain #30 tabs 01/25/23 naproxen 500 mg tablet (Naprosyn) 500 mg PO BID PRN pain #14 tabs 01/25/23 oxycodone 5 mg tablet 5 mg PO Q6H PRN pain #12 tabs 01/25/23 prednisone 20 mg tablet 60 mg PO DAILY 4 days #12 tabs 01/25/23 Allergies Allergy/AdvReac Type Severity Reaction Status Date / Time Sulfa (Sulfonamide Allergy Intermediate SWOLLEN Verified 01/25/23 10:04 Antibiotics) TONGUE [SULFA (SULFONAMIDE ANTIBIOTICS)] sulfa Allergy Unknown swollen Uncoded 09/20/20 16:15 tongue PMFSH Past Medical History Source: nursing notes reviewed Medical History Chronic GERD Gout History 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 Mother No problems noted. Maternal Grandmother Hx of colon cancer, stage I Social History Social History Household Members: Family Household Members Other:: mother Housing: House Do you presently have visiting nurse or other home services: No Alcohol intake: never Patient Tobacco Use Status: Never used Tobacco Advance Directives: Yes Advance Directives Information Provided: Yes Advance Directives on File: No service: No Current occupational status: disabled Physical Exam Vital Signs: Vital Signs: Last Vital Signs Temp 97.5 F 01/25/23 09:38 Pulse 86 01/25/23 09:38 Resp 16 01/25/23 09:38 BP 147/64 H 01/25/23 09:38 Pulse Ox 96 01/25/23 09:38 O2 Del Method Room Air 01/25/23 09:38 BMI result Body Mass Index 42.6 General appearance no distress Head is no cephalic atraumatic Neck is supple Respiratory no distress Extremities full range of motion x4 including right foot and ankle there is some soft tissue swelling just below the lateral malleolus the lateral malleolus as normal range of motion but it is uncomfortable there is no obvious effusion there is no redness or warmth Other extremities normal Course Course Course Narrative: X-ray of the right foot and ankle was nondiagnostic On exam there is no evidence of a septic joint, given patient's history of gout this is likely to be gout and he is treated with prednisone and and said and pain medication Medications Administered Discontinued Medications Generic Name Dose Route Start Last Admin Trade Name Freq PRN Reason Stop Dose Admin Acetaminophen 975 mg 01/25/23 11:22 01/25/23 11:30 Acetaminophen 325 Mg Tablet PO 01/25/23 11:23 975 mg ONCE ONE Administration Naproxen 500 mg 01/25/23 11:22 01/25/23 11:34 Naproxen 500 Mg Tablet PO 01/25/23 11:23 Not Given ONCE ONE Oxycodone HCl 5 mg 01/25/23 11:22 01/25/23 11:33 Oxycodone Hcl Immed Release 5 Mg Tablet PO 01/25/23 11:23 5 mg ONCE ONE Administration Prednisone 60 mg 01/25/23 11:22 01/25/23 11:32 Prednisone 20 Mg Tablet PO 01/25/23 11:23 60 mg ONCE ONE Administration Discharge Plan Discharge Clinical Impression: Gout Patient Disposition: Home, Self-Care Additional Instructions: your right ankle pain and swelling are likely from gout At this time there is no sign of infection or any dangerous or concerning cause If ankle gets red and swollen and your unable to move it or if you get fever or any worse condition or any concerns return any time to the ER Follow with primary doctor Prescriptions: New prednisone 20 mg tablet 60 mg PO DAILY 4 Days Qty: 12 0RF naproxen [Naprosyn] 500 mg tablet 500 mg PO BID PRN (Reason: pain) Qty: 14 0RF acetaminophen 500 mg tablet 1,000 mg PO QID PRN (Reason: pain) Qty: 30 0RF oxycodone 5 mg tablet 5 mg PO Q6H PRN (Reason: pain) Qty: 12 0RF Rx Instructions: Partial Fill upon patient request. No Action pantoprazole 40 mg tablet,delayed release (DR/EC) 40 mg PO BID Qty: 60 1RF naproxen 500 mg tablet 1 tab PO Q12H PRN (Reason: pain) loratadine 10 mg Tablet 10 mg PO DAILY PRN (Reason: Allergy Symptoms) Interventions: ED Discharge Assessment Last Done: 01/25/23 12:12 Discharge Date/Time: 01/25/23 12:12
[2023-01-25] MEDS: Acetaminophen 325 MG TABLET 975 MG PO (11:30)
[2023-01-25] MEDS: predniSONE 20 MG TABLET 60 MG PO (11:32)
[2023-01-25] MEDS: oxyCODONE HCl Immed Release 5 MG TABLET PO (11:33)
== END 2023-01-25 12:12 | disposition home or self-care (01) ==
PROVIDERS: Emergency Provider Emergency Medicine; PCP Physician Assistant
DX: M10.9 Gout, unspecified (principal); M25.571 Pain in right ankle and joints of right foot
CPT/HCPCS: 73600; 73620; 99283; 99284

== ENCOUNTER 2023-02-18 19:49 | Emergency (ER) | payer OTHER, MEDICAID, SELFPAY ==
[2023-02-18 20:16] VITALS: BP 142/85; PULSE 77; RESP 18; TEMP 36.8; O2SAT 97; BMI 44.2
--- NOTE | 2023-02-18 20:19 | ED.GENADULT ---
HPI - General Adult General Chief complaint: Ear Problems Stated complaint: R ear pain Time Seen by Provider: 02/18/23 20:19 Source: patient Mode of arrival: ambulatory Limitations: no limitations History of Present Illness HPI narrative: Patient is a 32 year old assigned male at with a history of GERD presenting to the emergency department today with right ear pain. Patient states that over the last day he has had worsening right ear pain. Patient denies any dizziness, lightheadedness, abdominal pain, nausea, vomiting, fever, chills, blurry vision, double vision, loss of vision, chest pain, difficulty breathing, shortness of breath, back pain, night sweats, pain with urination, increased urinary frequency, increased urinary urgency, blood in his urine or stool, syncope or a near syncopal episode, recent trauma or falls, bowel incontinence, bladder incontinence, bowel retention, bladder retention, or any other complaints at this time. Onset (ago): day(s) (1) Location: right (ear) Radiation: non-radiation Severity: mild Severity scale (1-10): 3 Quality: dull Pain Consistency: constant Relieving factors: none Exacerbating factors: none Associated symptoms: denies other symptoms Treatments prior to arrival: none Related Data Home Medications Medication Instructions Recorded Confirmed loratadine 10 mg tablet 10 mg PO DAILY PRN Allergy Symptoms 02/05/22 02/05/22 naproxen 500 mg tablet 1 tab PO Q12H PRN pain 02/05/22 02/05/22 Previous Rx's Medication Instructions Recorded pantoprazole 40 mg tablet,delayed 40 mg PO BID #60 tabs 05/18/22 release acetaminophen 500 mg tablet 1,000 mg PO QID PRN pain #30 tabs 01/25/23 naproxen 500 mg tablet (Naprosyn) 500 mg PO BID PRN pain #14 tabs 01/25/23 oxycodone 5 mg tablet 5 mg PO Q6H PRN pain #12 tabs 01/25/23 prednisone 20 mg tablet 60 mg PO DAILY 4 days #12 tabs 01/25/23 amoxicillin 875 mg-potassium 1 tab PO BID 7 days #14 tabs 02/18/23 clavulanate 125 mg tablet Allergies Allergy/AdvReac Type Severity Reaction Status Date / Time Sulfa (Sulfonamide Allergy Intermediate SWOLLEN Verified 02/18/23 20:15 Antibiotics) TONGUE [SULFA (SULFONAMIDE ANTIBIOTICS)] sulfa Allergy Unknown swollen Uncoded 09/20/20 16:15 tongue Review of Systems Constitutional: Constitutional: Reports no additional constitutional complaints, Denies chills, Denies fever(s) and Denies night sweats Eyes: Eyes: Reports no additional eye complaints, Denies blurry vision, Denies change in vision, Denies diplopia, Denies eye discharge, Denies loss of vision and Denies eye pain ENT: Denies dizziness Comments: right ear pain Cardiovascular: Cardiovascular: Reports no additional cardiovascular complaints, Denies chest pain, Denies lightheadedness, Denies Loss of Consciousness and Denies dyspnea Respiratory: Respiratory: Reports no additional respiratory complaints and Denies dyspnea Gastrointestinal: Gastrointestinal: Reports no additional gastrointestinal complaints, Denies abdominal pain, Denies melena, Denies hematochezia, Denies change in bowel habits and Denies change in stool character Genitourinary: Genitourinary: Reports no additional male genitourinary complaints, Denies hematuria, Denies oliguria, Denies difficulty urinating, Denies dysuria, Denies urinary frequency, Denies urinary hesitancy, Denies urinary incontinence and Denies urinary urgency Musculoskeletal: Musculoskeletal: Reports no additional musculoskeletal complaints, Denies numbness and Denies tingling Neurologic: Denies dizziness, Denies loss of vision, Denies numbness and Denies tingling Psychiatric: Psychiatric: Reports no additional psychiatric complaints Endocrine: Endocrine: Reports no additional endocrine complaints Hematologic/Lymphatic: Hematologic/Lymphatic: Reports no additional hematologic/lymphatic complaints Allergic/Immunologic: Allergic/Immunologic: Reports no additional allergic/immunologic complaints [facility] Past Medical History Attestation statement: The following information was validated with the patient. Source: old records reviewed and nursing notes reviewed Medical History Chronic GERD Gout History 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 Mother No problems noted. Maternal Grandmother Hx of colon cancer, stage I Social History Social History Household Members: Family Household Members Other:: mother Housing: House Do you presently have visiting nurse or other home services: No Alcohol intake: never Patient Tobacco Use Status: Never used Tobacco service: No Current occupational status: disabled Physical Exam ED Vital Signs: Vital Signs - 24 hr 02/18/23 20:16 Temperature 98.2 F Pulse Rate 77 Respiratory Rate 18 Blood Pressure 142/85 H Pulse Oximetry 97 Oxygen Delivery Method Room Air BMI result Body Mass Index 44.2 Const General: cooperative, no acute distress, alert and awake Nutritional Appearance: well nourished Orientation/consciousness: patient oriented x3 Limitations: no limitations HENMT Head: Yes normal to inspection and Yes atraumatic Ears: hearing grossly normal bilaterally, external ears normal and other (right TM is erythematous) General nose exam: Normal external nose present, no nasal discharge noted and no epistaxis Face and sinus: Yes normal facial exam, No abrasion and No laceration Mouth: Normal oral and palatal mucosa present, no drooling and no muffled voice Eyes General: appearance normal, both eyes and all related structures Periorbital: periorbital findings normal Eyelids: Yes eyelids normal Conjunctivae: conjunctivae normal Pupils: Equal, round and reactive pupils present EOM: EOMs intact bilaterally Neck Neck: Yes normal visual inspection, Yes full ROM and Yes no lymphadenopathy Chest Chest palpation & inspection: normal inspection of the chest Resp Effort & Inspection: normal respiratory effort and able to speak in complete sentences GI Inspection: Yes normal to inspection Neuro General: patient oriented x3 and moves all extremities Cranial nerves: Yes Equal, round and reactive pupils present Cognition (Neuro): normal cognition Motor exam (neuro): 5/5 motor strength present throughout Sensory Exam: Normal double simultaneous stimulation for sensation Coordination: [id number] test normal Extrem General: Yes normal to inspection, Yes full ROM and Yes capillary refill normal Psych Appearance: grossly normal Mental Status: mental status grossly normal Affect: normal affect Attitude: cooperative Thought process: Normal thought process present Thought content: Normal thought content present Insight: Good insight present (Psych) Medical Decision Making Medical Decision Making MDM Narrative: Patient is a 32 year old assigned male at with history of GERD presenting to the emergency department today with right ear pain. Patient's physical exam showed an erythematous right TM. I explained my physical exam findings to the patient. I answered all questions asked by the patient. I stressed the importance of the patient taking his medication as prescribed. I stressed the importance of the patient following up with his primary care provider. I stressed the importance of the patient returning to the emergency department immediately if his symptoms were to worsen or if he were to develop any dizziness, shortness of breath, difficulty breathing, chest pain, blurry vision, loss of vision, nausea, vomiting, abdominal pain, fever, chills, back pain, or any other complaints. Patient verbalized agreement and understanding with this treatment plan and discharge. Differential Diagnosis Differential Diagnoses: The differential diagnosis associated with the presentation includes otitis media, otitis externa, ear pain Discharge Plan Discharge Clinical Impression: Otitis media Patient Disposition: Home, Self-Care Instructions: Ear Infection (ED) Additional Instructions: Follow up with your primary care provider. Return to the emergency department immediately if your symptoms worsen or if you develop any dizziness, shortness of breath, difficulty breathing, chest pain, blurry vision, loss of vision, nausea, vomiting, abdominal pain, fever, chills, back pain, or any other complaints. Prescriptions: New amoxicillin-pot clavulanate 875-125 mg tablet 1 tab PO BID 7 Days Qty: 14 0RF No Action pantoprazole 40 mg tablet,delayed release (DR/EC) 40 mg PO BID Qty: 60 1RF naproxen 500 mg tablet 1 tab PO Q12H PRN (Reason: pain) loratadine 10 mg Tablet 10 mg PO DAILY PRN (Reason: Allergy Symptoms) prednisone 20 mg tablet 60 mg PO DAILY 4 Days Qty: 12 0RF naproxen [Naprosyn] 500 mg tablet 500 mg PO BID PRN (Reason: pain) Qty: 14 0RF acetaminophen 500 mg tablet 1,000 mg PO QID PRN (Reason: pain) Qty: 30 0RF oxycodone 5 mg tablet 5 mg PO Q6H PRN (Reason: pain) Qty: 12 0RF Rx Instructions: Partial Fill upon patient request. Referrals: Ericka Gardner PA [Primary Care Provider] - Print Language: Anguillan
== END 2023-02-18 20:33 | disposition home or self-care (01) ==
LOC: HO.ED 20:26
PROVIDERS: Emergency Provider Internal Medicine; PCP Physician Assistant
DX: H66.91 Otitis media, unspecified, right ear (principal); Z79.899 Other long term (current) drug therapy
CPT/HCPCS: 99282; 99283

== ENCOUNTER 2023-02-23 13:35 | Emergency (ER) | payer OTHER, SELFPAY ==
--- NOTE | ~2023-02-23 | XR_ITS ---
EXAMINATION: XR CHEST CLINICAL INFORMATION: Shortness of breath COMPARISON: 02/05/2022 TECHNIQUE: 2 views of the chest were obtained. FINDINGS: Lungs are well-inflated and clear. Trachea is midline in position. No interstitial disease, consolidation or mass. No pleural effusion or pneumothorax. Cardiac silhouette and pulmonary vessels are normal in size. The mediastinum and bobby have normal contour. Mild spondylosis of the thoracic spine, and chronic findings include mild levocurvature of the cervical and upper thoracic spine, and mild dextrocurvature of the lower thoracic and lumbar spine. XR/XR chest 2V IMPRESSION: No acute cardiopulmonary abnormality.
[2023-02-23 13:41] VITALS: BP 129/68; PULSE 72; RESP 20; TEMP 37.2; O2SAT 98; BMI 43.3
--- NOTE | 2023-02-23 13:41 | ED.SOB ---
HPI - SOB/Dyspnea General Chief Complaint: Upper Respiratory Symptoms Stated Complaint: trouble swallowing / tightness in throat Time Seen by Provider: 02/23/23 14:07 Source: patient Mode of arrival: ambulatory Limitations: no limitations History of Present Illness HPI Narrative: 32-year-old male history of morbid obesity, obstructive sleep apnea who uses a CPAP, history of bowel resections, history of varicose veins, klippel trenaunay syndrome presenting w/ difficulty swollowing/ sob X 2-3 dyas. Feels like hes choking when he swallows. Reports he uses inhalers and has been using them with little to no relief. He tells me that his neighbor smokes and he feels like this is making his sx worse. Reports that he has a cat and is allergic to cats and also has mold at home which could be making it worse. Was recently on amoxicillin for otitis media and is on prednisone and colchicine for gout. Patient reports that he is currently being treated for oral thrush, he gets it offten due to using a CPAP and he is not sure if this is contributing. He denies CP, nausea, vomiting, abd pain, headache, fevers, chills, dizziness. Related Data Home Medications Medication Instructions Recorded Confirmed loratadine 10 mg tablet 10 mg PO DAILY PRN Allergy Symptoms 02/05/22 02/05/22 naproxen 500 mg tablet 1 tab PO Q12H PRN pain 02/05/22 02/05/22 Previous Rx's Medication Instructions Recorded pantoprazole 40 mg tablet,delayed 40 mg PO BID #60 tabs 05/18/22 release acetaminophen 500 mg tablet 1,000 mg PO QID PRN pain #30 tabs 01/25/23 naproxen 500 mg tablet (Naprosyn) 500 mg PO BID PRN pain #14 tabs 01/25/23 oxycodone 5 mg tablet 5 mg PO Q6H PRN pain #12 tabs 01/25/23 prednisone 20 mg tablet 60 mg PO DAILY 4 days #12 tabs 01/25/23 amoxicillin 875 mg-potassium 1 tab PO BID 7 days #14 tabs 02/18/23 clavulanate 125 mg tablet aluminum-mag hydroxide-simethicone 5 ml PO 5XD PRN dyspepsia #355 mL 02/23/23 200 mg-200 mg-20 mg/5 mL oral susp (Maalox Advanced) loratadine 10 mg tablet 10 mg PO DAILY #30 tabs 02/23/23 Allergies Allergy/AdvReac Type Severity Reaction Status Date / Time Sulfa (Sulfonamide Allergy Intermediate SWOLLEN Verified 02/23/23 13:41 Antibiotics) TONGUE [SULFA (SULFONAMIDE ANTIBIOTICS)] sulfa Allergy Unknown swollen Uncoded 02/23/23 13:41 tongue Review of Systems Review of Systems: Constitutional : No Weight loss, No Fever, No Chills, + Fatigue, + Malaise ENT/Mouth : + sore throat, No Rhinorrhea Eyes: No Eye Pain, No Swelling, No Redness Cardiovascular : No Chest Pain, No SOB, No Dyspnea on Exertion, No Orthopnea, No Edema, No Palpitations Respiratory : No Cough, No Sputum, No Wheezing Gastrointestinal : No Nausea, No Vomiting, No Diarrhea, No Constipation, No abdominal Pain, No Hematochezia, No Melena Genitourinary : No Dysuria, No Urinary Frequency, No Hematuria, Musculoskeletal : No joint pain, No Myalgias, No Joint Swelling Skin : No Skin Lesions, No rash Neuro : No Weakness, No Numbness, No Dizziness, No Headache Psych : No Anxiety/Panic, No Depression All other systems reviewed and are negative Yes all other systems are reviewed and are negative [facility] Past Medical History Attestation statement: The following information was validated with the patient. Source: old records reviewed and nursing notes reviewed Medical History Chronic GERD Gout History 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 Mother No problems noted. Maternal Grandmother Hx of colon cancer, stage I Social History Social History Household Members: Family Household Members Other:: mother Housing: House Do you presently have visiting nurse or other home services: No Alcohol intake: never Patient Tobacco Use Status: Never used Tobacco Advance Directives: No Advance Directives Information Provided: No service: No Current occupational status: disabled Physical Exam Vital Signs: Vital Signs: Last Vital Signs Temp 97.8 F 02/23/23 15:13 Pulse 73 02/23/23 15:13 Resp 18 02/23/23 15:13 BP 137/73 02/23/23 15:13 Pulse Ox 99 02/23/23 15:13 O2 Del Method Room Air 02/23/23 15:13 BMI result Body Mass Index 43.3 vss Appearance: Alert.? Oriented X3.? No acute distress.? Head: Normocephalic, atraumatic, no step-offs or deformities Eyes: Pupils equal, round and reactive to light.? ENT: Pharynx normal.? Neck: Normal inspection.? Neck supple.? CVS: Normal heart rate and rhythm.? Pulses normal.? Respiratory: No respiratory distress.? Breath sounds normal.? Abdomen: Soft and nontender.? Skin: Skin warm and dry.? Normal skin color.? Normal skin turgor.? Extremities: No lower extremity edema.? No calf ttp. 5/5 strength to bilateral upper and lower extremities Neuro: Oriented X 3.? No motor deficit.? No sensory deficit. CN 2-12 intact Course Course Course Narrative: RME: 32yo M w/PMHx RUDI on CPAP, Asthma, GERD, c/o choking feeling in throat w/ SOB x few days. Admits to difficulty swallowing. Patient feels sx are from his neighbors that smoke. Has been using inhaler w/o relief. Denies cough, CP Admits is currently being tx for thrush (recurrent thrush due to his CPAP) Posterior oropharynx erythematous, uvula midline, Lungs CTA Full HPI, ROS and PE to be performed by primary ED provider. Reevaluation(s) Reevaluation #1: patient's COVID, strep negative. patient's chest x-ray unremarkable. Patient tolerated Maalox well reports some improvement, tolerating p.o., p.o. challenge past patient tolerated crackers and juice. Will discharge him home with loratadine for possible allergies and will have him follow up with GI for possible upper endoscopy with concerns for esophagitis. Educated patient on diagnosis and treatment plan, answered all question, patient verbalizes understanding. At this time patient will be discharged home, advised to return with new or worsening symptoms. Educated on worrisome signs and symptoms and when to return. At this time I feel comfortable discharge home. Time: 15:36 Medications Administered Discontinued Medications Generic Name Dose Route Start Last Admin Trade Name Pipo PRN Reason Stop Dose Admin Al Hydroxide/Mg Hydroxide 30 ml 02/23/23 15:06 02/23/23 15:23 Magnesium Hydrox/Alum Hydrox 30 Ml Oral.Susp PO 02/23/23 15:07 30 ml ONCE ONE Administration Medical Decision Making Medical Decision Making MDM Narrative: 32-year-old male presents with choking sensation, shortness of breath for the past few days contributes this from his neighbor smoke. Physical examination benign. Likely viral illness, asthma, chronic respiratory disease or allergies . Possible esophigitis. I do not suspect peritonsillar abscess, retropharyngeal abscess, epiglottitis, threatened airway, acute anaphylactic reaction, allergic reaction. Other differentials include globus hystericus, anxiety. Other differentials include thyroid nodules, or abnormlaities. Also malignancy remains a differential. shortness of breath likely secondary to viral illness or allergies, do not suspect pulmonary embolism, patient PERC negative, no signs of pneumonia Plan- xray strep, po challange, cxr Differential Diagnosis Differential Diagnoses: The differential diagnosis associated with the presentation includes Likely viral illness, asthma, chronic respiratory disease ir allergies. I do not suspect peritonsillar abscess, retropharyngeal abscess, epiglottitis, threatened airway, acute anaphylactic reaction, allergic reaction. Other differentials include globus hystericus, anxiety. Other differentials include thyroid nodules, or abnormlaities. Also malignancy remains a differential. shortness of breath likely secondary to viral illness or allergies, do not suspect pulmonary embolism, patient PERC negative, no signs of pneumonia Admission/Observation Consideration of admission/observation: Escalation of care including admission/observation considered Unlikely Lab Data MDM Lab Attestation statement: I reviewed the patient's lab results. Labs: Lab Results 02/23/23 02/23/23 Range/Units 13:48 13:48 COVID-19 (CANDACE) Negative (Negative) COVID-19 Clin Com See Note S. pyogenes GrpA FLAKITA Negative (Negative) Independent Interpretation I performed an independent interpretation of an: Plain X-Ray Radiology Impression Discussion of test interpretation with radiology: I have reviewed the radiologist's reading. Core Measures AMI core measures followed: Yes Measure exclusions: not indicated Critical Care Time Critical Care Time Critical Care Time: No Discharge Plan Discharge Clinical Impression: Difficulty swallowing, Sore throat, Allergies Patient Disposition: Home, Self-Care Instructions: Dysphagia (ED) Additional Instructions: Take your medications as prescribed. If you were prescribed antibiotics today, it is important that you take your medication to their entirety, do not skip any doses, do not finish them early. Follow-up with your primary care provider this week. Follow up with GI I suspect you would benifit from an upper endoscopy Return to the emergency department with new or worsening symptoms. Such as fevers, chills, chest pain, shortness of breath, nausea, vomiting, dizziness, headache, vision changes, lethargy In case of emergency call 911 XR/XR chest 2V IMPRESSION: No acute cardiopulmonary abnormality. ? Prescriptions: New loratadine 10 mg tablet 10 mg PO DAILY Qty: 30 0RF alum-mag hydroxide-simeth [Maalox Advanced] 200-200-20 mg/5 mL suspension 5 ml PO 5XD PRN (Reason: dyspepsia) Qty: 355 0RF Rx Instructions: administer between meals and at bedtime No Action pantoprazole 40 mg tablet,delayed release (DR/EC) 40 mg PO BID Qty: 60 1RF naproxen 500 mg tablet 1 tab PO Q12H PRN (Reason: pain) loratadine 10 mg Tablet 10 mg PO DAILY PRN (Reason: Allergy Symptoms) prednisone 20 mg tablet 60 mg PO DAILY 4 Days Qty: 12 0RF naproxen [Naprosyn] 500 mg tablet 500 mg PO BID PRN (Reason: pain) Qty: 14 0RF acetaminophen 500 mg tablet 1,000 mg PO QID PRN (Reason: pain) Qty: 30 0RF oxycodone 5 mg tablet 5 mg PO Q6H PRN (Reason: pain) Qty: 12 0RF Rx Instructions: Partial Fill upon patient request. amoxicillin-pot clavulanate 875-125 mg tablet 1 tab PO BID 7 Days Qty: 14 0RF Referrals: [facility] [Provider Group] - 1 day Ericka Gardner PA [Primary Care Provider] - 2 days
[2023-02-23 14:12] LABS: IDNOW Serial# 08D9AD1C; IDNOW Serial# BCCEAD1C; Strep A Nucleic Acid Negative (Negative)
[2023-02-23 14:13] LABS: COVID-19 Test Negative (Negative)
[2023-02-23 15:13] VITALS: BP 137/73; PULSE 73; RESP 18; TEMP 36.6; O2SAT 99
[2023-02-23] MEDS: Magnesium Hydrox/Alum Hydrox 30 ML ORAL.SUSP PO (15:23)
--- NOTE | 2023-02-23 15:43 | MHC.EDTECH ---
PATIENT WAS GIVEN JUICE AND SALTINES.PATIENT EATING WITH NO COMPLAINTS .
== END 2023-02-23 16:00 | disposition home or self-care (01) ==
PROVIDERS: Physician Assistant; Emergency Provider Emergency Medicine; PCP Physician Assistant
DX: R13.10 Dysphagia, unspecified (principal); J02.9 Acute pharyngitis, unspecified; G47.33 Obstructive sleep apnea (adult) (pediatric); Z20.822 Contact with and (suspected) exposure to COVID-19; Z79.899 Other long term (current) drug therapy
CPT/HCPCS: 71046; 87635; 87651; 99283

== ENCOUNTER 2023-02-28 13:12 | Emergency (ER) | payer OTHER, SELFPAY ==
[2023-02-28 13:40] VITALS: BP 130/72; PULSE 73; RESP 18; TEMP 36.7; O2SAT 98; BMI 42.9
--- NOTE | 2023-02-28 13:50 | ED_ITS ---
HPI - General Adult General Chief complaint: General Medical Stated complaint: Diff Swallowing Sore Throat Diff Breathing Time Seen by Provider: 02/28/23 14:47 Source: patient and RN notes reviewed Mode of arrival: ambulatory Limitations: no limitations History of Present Illness HPI narrative: This is a 32-year-old male, with a past medical history of morbid obesity, obstructive sleep apnea who uses a CPAP, history of bowel resections, history of varicose veins, klippel trenaunay syndrome presenting with painful swallowing and fullness sensation in his neck. Patient states that he has had the symptoms for several months however reports that his symptoms worsened last week. Feels like hes choking when he swallows. Reports he uses inhalers and has been using them with little to no relief. He tells me that his neighbor smokes and he feels like this is making his sx worse. He denies CP, nausea, vomiting, abd pain, headache, fevers, chills, dizziness. He was seen last week for these symptoms and was given allergy medication which has not provided him with any relief. He was then seen by an ENT specialist where they did a laryngoscopy, and was told that everything looked fine , was told that his vocal cords were not swollen. He is being followed by them and had an appointment with them toda y however the doctor was out of the office today and patient was unable to be seen. Patient was not placed on oral steroids last week as they attributed his symptoms to a thyroid problem. He reports he recently was on amoxicillin for a right ear infection several weeks ago, and was placed on loratadine last week, otherwise no new foods or medications. No other complaints or concerns at this time. MD complaint: Neck pain Location: neck Radiation: non-radiation Severity: moderate Quality: aching Pain Consistency: constant Relieving factors: none Exacerbating factors: none Associated symptoms: denies other symptoms Treatments prior to arrival: none Related Data Home Medications Medication Instructions Recorded Confirmed loratadine 10 mg tablet 10 mg PO DAILY PRN Allergy Symptoms 02/05/22 03/17/23 naproxen 500 mg tablet 1 tab PO Q12H PRN pain 02/05/22 03/17/23 Previous Rx's Medication Instructions Recorded acetaminophen 500 mg tablet 1,000 mg PO QID PRN pain #30 tabs 01/25/23 naproxen 500 mg tablet (Naprosyn) 500 mg PO BID PRN pain #14 tabs 01/25/23 aluminum-mag hydroxide-simethicone 5 ml PO 5XD PRN dyspepsia #355 mL 02/23/23 200 mg-200 mg-20 mg/5 mL oral susp (Maalox Advanced) loratadine 10 mg tablet 10 mg PO DAILY #30 tabs 02/23/23 pantoprazole 40 mg tablet,delayed 40 mg PO BID #60 tabs 03/09/23 release methylcellulose (with sugar) oral 1 tbsp PO BID 30 days #454 grams 03/17/23 powder (Citrucel (sucrose) oral powder) Allergies Allergy/AdvReac Type Severity Reaction Status Date / Time Sulfa (Sulfonamide Allergy Intermediate SWOLLEN Verified 03/17/23 08:59 Antibiotics) TONGUE [SULFA (SULFONAMIDE ANTIBIOTICS)] sulfa Allergy Unknown swollen Uncoded 03/17/23 08:59 tongue Review of Systems Review of Systems: Yes all other systems are reviewed and are negative Constitutional: Constitutional: Reports as per [facility] Past Medical History Medical History Chronic GERD Gout History 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 Mother No problems noted. Maternal Grandmother Hx of colon cancer, stage I Social History Social History Household Members: Family Household Members Other:: mother Housing: House Do you presently have visiting nurse or other home services: No Alcohol intake: never Patient Tobacco Use Status: Never used Tobacco service: No Current occupational status: disabled Physical Exam ED Vital Signs: Vital Signs - 24 hr 02/28/23 13:40 02/28/23 19:46 Temperature 98.1 F 98.1 F Pulse Rate 73 67 Respiratory Rate 18 18 Blood Pressure 130/72 127/75 Pulse Oximetry 98 99 Oxygen Delivery Method Room Air Room Air BMI result Body Mass Index 42.9 Const Other: Speaking in full sentences, under no acute distress. General: cooperative, comfortable and no acute distress Orientation/consciousness: patient oriented x3 Limitations: no limitations HENMT Other: Oropharynx is mildly erythematous, no tonsillar hypertrophy or exudates. Airway is widely patent. No trismus, drooling, or dysphonia Head: Yes normal to inspection, Yes normocephalic and Yes atraumatic Ears: hearing grossly normal bilaterally General nose exam: Normal external nose present Face and sinus: Yes normal facial exam Mouth: Normal oral and palatal mucosa present, oropharynx normal and moist mucous membranes Throat: Yes posterior oropharynx normal Eyes General: appearance normal, both eyes and all related structures Eyelids: Yes eyelids normal Conjunctivae: conjunctivae normal Sclerae: sclerae normal Pupils: Equal, round and reactive pupils present EOM: EOMs intact bilaterally Neck Other: Anterior neck is tender to palpation, without any obvious fluctuance or abscess noted, no overlying skin changes or warmth. No stridor. Neck: Yes normal visual inspection, Yes full ROM and Yes no lymphadenopathy Lymphatic: no lymphadenopathy noted Chest Chest palpation & inspection: normal inspection of the chest Resp Effort & Inspection: normal respiratory effort and able to speak in complete sentences Auscultation: clear to auscultation bilaterally, no crackles, no rales, no rhonchi and no wheezes Cardio Rate: regular rate Rhythm: regular rhythm Heart sounds: S1 normal heart sound present and S2 normal heart sound present GI Inspection: Yes normal to inspection Skin General skin exam: no rashes or lesions noted Trauma: no lacerations or abrasions Wounds: no wounds Neuro General: patient oriented x3 and moves all extremities Cranial nerves: Yes Equal, round and reactive pupils present Extrem General: Yes normal to inspection Right upper extremity: normal to inspection Left upper extremity: normal to inspection Right lower extremity: normal to inspection Left lower extremity: normal to inspection Course Course Course Narrative: RME: 32 yold male presents to the ED for chronic difficulty swallowing and is being followed by ENT. patientt is not in any respiratory distress. Reevaluation(s) Reevaluation #1: Case discussed with attending physician Dr. Pacheco given CT findings of significant laryngeal airway narrowing from swollen/edematous vocal cords or reactions to drugs. No mass or mass effect seen in the larynx or along the airway. Shotty small lymph nodes in the neck, salivary glands and thyroid lobes are unremarkable. Labs are within normal limits, no leukocytosis, see below for further details of lab. Strep is negative. TSH within normal limits. Patient has no dysphonia, drooling, or stridor in the neck. Patient oxygen saturation 98% on room air. Patient is speaking in full sentences. Patient was seen by ENT physicians in [place], and has close follow-up with them. Will medicate with IV decadron 10mg. Time: 19:39 Reevaluation #2: Case discussed with [facility] ER physician, Dr. Mitchell, given patient was seen previously by ENT specialist at [facility] within this past week and that we do not have ENT available or on-call, patient will be transferred to [facility] ER. Patient moved to [place] emergency Department to monitor airway. Patient saturating okay at 98% on room air, able to swallow and speak in full sentences. Patient reports that his symptoms worsened with laying down, will keep upright. Transfer care initiated. Images uploaded to [employer] and given physical disc copy of radiology images. Time: 20:10 Reevaluation #3: Transfer to [facility] pending, given sign-out to my attending physician Dr. Pacheco, until patient is transferred. Patient remains stable. Time: 20:56 Medications Administered Discontinued Medications Generic Name Dose Route Start Last Admin Trade Name Freq PRN Reason Stop Dose Admin Dexamethasone Sodium Phosphate 10 mg 02/28/23 19:32 02/28/23 19:51 Dexamethasone Sod Phosphate 10 Mg/Ml Vial IVPUSH 02/28/23 19:33 10 mg ONCE ONE Administration Iohexol 100 ml 02/28/23 18:23 02/28/23 18:24 Iohexol 350 Mg/Ml 100 Ml Infus..Btl IV 02/28/23 18:24 65 ml ONCE ONE Administration Medical Decision Making Medical Decision Making MDM Narrative: 32-year-old male presenting to the emergency department with complaints of neck fullness and pain ongoing for the last several months, worsening over the last s everal days. Patient was seen last week for the similar symptoms and was thought that patient had allergies as he reported that his symptoms worsen when he is exposed to marijuana smoke. On examination, vital signs stable, no trismus, drooling, or dysphonia. Patient has exquisite tenderness to palpation diffusely through the anterior neck without any palpable abnormalities or swelling. Given tenderness along the neck will order basic labs and obtain soft tissue neck CT for further analysis. 740 pm patient seen and re-evaluated with subacute throat pain seen by ENT last week which showed slight swelling of soft tissue likely allergic but normal vocal cord started on loratadine patient comes here as feels little more pain and difficulty in swallowing. Patient's speech is normal CT scan showed slight swelling of the vocal cords and surrounding tissue no airway compromise on exam the patient does not have any stridor and speaking full sentences. Will give 10 mg of IV Decadron case discussed with radiologist Dr. Billy laryngeal space is very narrow almost pinpoint nothing to compare as previous CT scan were done as outpatient. Will transfer patient to [facility] as we do not have any ENT back up here Differential Diagnosis Differential Diagnoses: The differential diagnosis associated with the presenta tion includes Laryngitis, Neck abscess, GERD, malignancy, esophagitis Admission/Observation Consideration of admission/observation: Escalation of care including admission/observation considered Given pain in the anterior neck considered admission observation Lab Data MDM Lab Attestation statement: I reviewed the patient's lab results. No leukocytosis, stable H&H, total bilirubin mildly elevated at 1.3 which is chronic, mildly elevated liver enzymes which is also seen on previous visits. 02/28/23 17:17 02/28/23 17:17 Labs: Lab Results 02/28/23 02/28/23 02/28/23 Range/Units 17:17 17:17 18:28 WBC 5.9 (4.8-10.8) X10*3/uL RBC 5.33 (4.60-5.80) X10*6/uL Hgb 15.8 (14.0-18.0) g/dl Hct 45.3 (42.0-52.0) % MCV 85.0 (80.0-98.0) fL MCH 29.6 (27.0-33.0) pg MCHC 34.9 (31.0-36.0) g/dl RDW 12.9 (11.0-16.0) % Plt Count 209 (160-400) X10*3/uL MPV 9.2 L (9.4-12.4) fL Immature Gran % (Auto) 0.5 H (0.0-0.4) % Neut % (Auto) 55.5 (45-73) % Lymph % (Auto) 32.9 (20-40) % Fleming % (Auto) 8.3 (2-11) % Eos % (Auto) 2.5 (0-4) % Baso % (Auto) 0.3 (0-2) % Lymph # (Auto) 1.9 (1.2-4.9) X10*3/uL Fleming # (Auto) 0.5 (0.1-1.2) X10*3/uL Eos # (Auto) 0.2 (0.0-0.4) X10*3/uL Baso # (Auto) 0.0 (0.0-0.2) X10*3/uL Abs Immat Gran (auto) 0.03 (0.00-0.03) X10*3/uL Absolute Neuts (auto) 3.3 (2.0-8.3) x10*3/uL Absolute Nucleated RBC 0.000 (0.0-0.012) X10*3/uL Nucleated RBC % (auto) 0.0 (0.0-0.2) /100WBC Sodium 143 (135-145) mmol/L Potassium 4.0 (3.3-5.1) mmol/L Chloride 107 (96-108) mmol/L Carbon Dioxide 27 (22-29) mmol/L Anion Gap 13 (12-20) BUN 15 (9-16) mg/dL Creatinine 0.86 (0.5-1.4) mg/dL Estim Creat Clear Calc 144.6 Estimated GFR > 60 Random Glucose 87 (60-115) mg/dL Calcium 10.0 D (8.4-10.2) mg/dL Total Bilirubin 1.3 H (0.0-1.0) mg/dL Direct Bilirubin 0.3 (0.0-0.5) mg/dL AST 45 H (5-37) U/L ALT 77 H (0-40) U/L Alkaline Phosphatase 45 (39-117) U/L Total Protein 7.5 (6.5-8.0) g/dL Albumin 4.6 (3.5-5.0) g/dL TSH 1.09 (0.32-4.0) uIU/mL S. pyogenes GrpA FLAKITA Negative (Negative) Radiology Impression Discussion of test interpretation with radiology: I have reviewed the radiologist's reading. Radiologist Impression: EXAMINATION: CT SOFT TISSUE NECK WITH CONTRAST CLINICAL INFORMATION: Feeling of swollen throat. COMPARISON: None available.? ? TECHNIQUE: Following the intravenous administration of 100 mL of Omnipaque 350 intravenous contrast, helical imaging was performed in the axial plane with generation of coronal and sagittal reformatted images. This CT examination was performed using dose optimization techniques as appropriate, variously including the following: *Automated exposure control *Adjustment of mA and/or kV according to patient size (this includes techniques or standardized protocols for targeted exams where dose is matched to indication/reason for exam; i.e. extremities or head) *Use of iterative reconstruction technique DLP: 882 mGy-cm FINDINGS: There is significant narrowing involving the airway at the level of vocal cords likely edema involving vocal cords. No soft tissue mass or mass effect seen. The fat around the larynx is preserved. The supraglottic and subglottic airway is otherwise preserved. The central trachea and proximal bronchi are widely patent. The visualized parotid, submandibular glands and thyroid lobes are symmetrical. There are small shotty bilateral neck lymph nodes none of which are significant. Visualized sinuses are patent. Prevertebral and paravertebral soft tissues are normal. There is mild ventral spondylosis C4-C5 and C5-C6 disc levels. No aggressive lytic or sclerotic process seen. The lung apices are clear. CT/CT soft tissue neck w IV con IMPRESSION: Significant laryngeal airway narrowing from swollen/edematous vocal cords or reaction to drugs. No mass or mass effect seen in the larynx or along the airway. ? There are several small shotty lymph nodes in the neck. The salivary glands and thyroid lobes are unremarkable. Dictated By: Rayo Billy MD External Record Review External record reviewed: Inpatient record, Office record, Outpatient record, Prior outpatient labs, Prior outpatient radiology, Primary care record and Outside ED record Critical Care Time Critical Care Time Critical Care Time: Yes Total Critical Care Time: 60 Attestation: I have personally provided critical care time exclusive of time spent on sepa rately billable procedures. Time includes review of lab data, radiology results, discussion with consultants, and monitoring for potential decompensation. Intervention performed as documented. Discharge Plan Discharge Clinical Impression: Narrowing of airway Patient Disposition: Xfer Acute Care Hospital Transfer Details: Dr. Mitchell at [facility] Emergency Department accepts [facility] of care. Prescriptions: No Action pantoprazole 40 mg tablet,delayed release (DR/EC) 40 mg PO BID Qty: 60 1RF naproxen 500 mg tablet 1 tab PO Q12H PRN (Reason: pain) loratadine 10 mg Tablet 10 mg PO DAILY PRN (Reason: Allergy Symptoms) naproxen [Naprosyn] 500 mg tablet 500 mg PO BID PRN (Reason: pain) Qty: 14 0RF acetaminophen 500 mg tablet 1,000 mg PO QID PRN (Reason: pain) Qty: 30 0RF loratadine 10 mg tablet 10 mg PO DAILY Qty: 30 0RF alum-mag hydroxide-simeth [Maalox Advanced] 200-200-20 mg/5 mL suspension 5 ml PO 5XD PRN (Reason: dyspepsia) Qty: 355 0RF Rx Instructions: administer between meals and at bedtime Citrucel (sucrose) Powder 1 tbsp PO BID 30 Days Qty: 454 0RF Interventions: Acute Care Transfer Worksheet (ED) Last Done: 02/28/23 21:50 Discharge Date/Time: 02/28/23 21:50
[2023-02-28 19:46] VITALS: BP 127/75; PULSE 67; RESP 18; TEMP 36.7; O2SAT 99
== END 2023-02-28 21:50 | disposition short-term general hospital (02) ==
PROVIDERS: Emergency Provider Internal Medicine; PCP Physician Assistant
DX: J38.6 Stenosis of larynx (principal); E66.01 Morbid (severe) obesity due to excess calories; Z68.41 Body mass index [BMI] 40.0-44.9, adult; Q87.2 Congenital malformation syndromes predominantly involving limbs; Z79.899 Other long term (current) drug therapy
CPT/HCPCS: 36415; 70491; 80048; 80076; 84443; 85025; 87651; 96374; 99285; J1100; Q9967

== ENCOUNTER 2023-03-17 08:41 | Outpatient (AMB) | payer OTHER, SELFPAY ==
[2023-03-17 08:58] VITALS: BP 135/73; PULSE 72; BMI 44.7
--- NOTE | 2023-03-17 08:58 | A.OFFVIS_ITS ---
Intake Vital Signs 03/17/23 08:58 Height 5 ft 5 in Weight 268 lb 8.368 oz BMI 44.7 BP 135/73 Blood Pressure Location Lt brachial Position Sitting Pulse 72 Intake Visit Reasons: follow up Intake Note: Rod presents in office as a est.patient for a f/u PT CC: pt reports having bloating , rectal bleeding pt denies any other GI Issues Probe Operator Required: No Accompanied by: Self / Same As Patient Allergies Sulfa (Sulfonamide Antibiotics) [SULFA (SULFONAMIDE ANTIBIOTICS)] Allergy (Intermediate, Verified 03/17/23 08:59) SWOLLEN TONGUE sulfa Allergy (Unknown, Uncoded 03/17/23 08:59) swollen tongue Medication List - Last Reconciled 03/17/23 by Latia Peacock PA-C acetaminophen 1,000 mg (2 x 500 mg) PO QID PRN alum-mag hydroxide-simeth 200-200-20 mg/5 mL (Maalox Advanced) 5 mL PO 5XD PRN loratadine 10 mg PO DAILY PRN loratadine 10 mg PO DAILY naproxen 1 tab PO Q12H PRN naproxen (Naprosyn) 500 mg PO BID PRN pantoprazole 40 mg PO BID HPI HPI Comments History of Present Illness Details A 32 y/o male with odynophagia- had work up ENT- bronch-x 2 improved on 2nd scope- benadryl- has since discontinued. He was seen in the ED 02/28/23- transferred to [facility] for 2 days- discharged on benadryl. Says likely smoke caused his symptoms Has some discomfort when he swallows- but improved- no choking/ gagging N/V He is around a lot of 2nd hand smoke- from neighbors-he is a nonsmoker-recurrent thrush- uses cpap-sleep medicine- [place] Appetite is good-eats whatever- he is not selective- has not been walking- stays in- he is depressed-lives with his GM- unemployed- back issues Bowels a bit slow with benadryl- stools hard- he does not take fiber Carpal tunnel surgery next month ED 02/28/23 HPI narrative: This is a 32-year-old male, with a past medical history of morbid obesity, obstructive sleep apnea who uses a CPAP, history of bowel resections, history of varicose veins, klippel trenaunay syndrome presenting with painful swallowing and fullness sensation in his neck.? Patient states that he has had the symptoms for several months however reports that his symptoms worsened last week.? Feels like hes choking when he swallows. Reports he uses inhalers and has been using them with little to no relief. He tells me that his neighbor smokes and he feels like this is making his sx worse.? He denies CP, nausea, vomiting, abd pain, headache, fevers, chills, dizziness.? He was seen last week for these symptoms and was given allergy medication which has not provided him with any relief.? He was then seen by an ENT specialist where they did a laryngoscopy, and was told that everything looked fine , was told that his vocal cords were not swollen.? He is being followed by them and had an appointment with them today however the doctor was out of the office today and patient was unable to be seen.? Patient was not placed on oral steroids last week as they attributed his symptoms to a thyroid problem.? He reports he recently was on amoxicillin for a right ear infection several weeks ago, and was placed on loratadine last week, otherwise no new foods or medications.? No other complaints or concerns at this time. Recap 09/2021 30-year-old obese male with history persistent acid reflux now well controlled with pantoprazole 40 mg for several months.? He has had made some dietary modifications, we encouraged this further.? He is interested in weight managem ent I have put a referral back to the automatic drilling machine operator, as he would like further guidance there.? He will trial pantoprazole 40 mg daily, continue to avoid culprits, remain upright 2-3 hours after eating especially his evening meal. Will follow back for progress.? Encouraged to call with questions or concerns [facility] Medical History Chronic GERD Gout History of varicose veins Klippel Trenaunay syndrome Morbid obesity Overweight Partial small bowel obstruction Partial small bowel obstruction SBO (small bowel obstruction) Surgical History History of bowel resection History of colonoscopy History of laparotomy History of vascular surgery Hx of endoscopy Hx of tonsillectomy Status post orchiopexy Family History Father No problems noted. Mother No problems noted. Maternal Grandmother Hx of colon cancer, stage I Social History Household Members: Family Household Members Other:: mother Housing: House Do you presently have visiting nurse or other home services: No Alcohol intake: never Patient Tobacco Use Status: Never used Tobacco service: No Current occupational status: disabled Review of Systems Const All systems reviewed & are unremarkable except as noted in HPI and below Card Denies chest pain, Reports dyspnea and Reports dyspnea on exertion Resp Reports dyspnea and Reports dyspnea on exertion GI Denies abdominal pain, Reports bloating, Reports heartburn, Denies nausea and Denies vomiting Physical Exam Vital Signs: Last Vital Signs Pulse 72 03/17/23 08:58 BP 135/73 03/17/23 08:58 BMI result Body Mass Index 44.7 Const General: healthy appearing, comfortable and no acute distress Nutritional Appearance: overweight Orientation/consciousness: patient oriented x3 Limitations: no limitations Eyes Sclerae: sclerae normal Resp Effort & Inspection: normal respiratory effort and able to speak in complete sentences Auscultation: clear to auscultation bilaterally Cardio Rate: regular rate Rhythm: regular rhythm Heart sounds: S1 normal heart sound present and S2 normal heart sound present GI Palpation (GI): Soft to palpation and nontender Auscultation: normal bowel sounds Skin General skin exam: no rashes or lesions noted Neuro General: patient oriented x3 Extrem General: Yes full ROM Psych Affect: Labile affect present Attitude: cooperative Results Reviewed Results Reviewed: EXAMINATION: CT SOFT TISSUE NECK WITH CONTRAST CLINICAL INFORMATION: Feeling of swollen throat. COMPARISON: None available.? ? TECHNIQUE: Following the intravenous administration of 100 mL of Omnipaque 350 intravenous contrast, helical imaging was performed in the axial plane with generation of coronal and sagittal reformatted images. This CT examination was performed using dose optimization techniques as appropriate, variously including the following: *Automated exposure control *Adjustment of mA and/or kV according to patient size (this includes techniques or standardized protocols for targeted exams where dose is matched to indication/reason for exam; i.e. extremities or head) *Use of iterative reconstruction technique DLP: 882 mGy-cm FINDINGS: There is significant narrowing involving the airway at the level of vocal cords likely edema involving vocal cords. No soft tissue mass or mass effect seen. The fat around the larynx is preserved. The supraglottic and subglottic airway is otherwise preserved. The central trachea and proximal bronchi are widely patent. The visualized parotid, submandibular glands and thyroid lobes are symmetrical. There are small shotty bilateral neck lymph nodes none of which are significant. Visualized sinuses are patent. Prevertebral and paravertebral soft tissues are normal. There is mild ventral spondylosis C4-C5 and C5-C6 disc levels. No aggressive lytic or sclerotic process seen. The lung apices are clear. CT/CT soft tissue neck w IV con IMPRESSION: Significant laryngeal airway narrowing from swollen/edematous vocal cords or reaction to drugs. No mass or mass effect seen in the larynx or along the airway. ? There are several small shotty lymph nodes in the neck. The salivary glands and thyroid lobes are unremarkable. Dictated By: Assessment & Plan Assessment & Plan (1) Odynophagia: Comment: He is scheduled for another test for vocal cords by ENT- he is unsure- Get records [facility]- Carpal tunnel surgery next month Code(s): R13.10 - Dysphagia, unspecified (2) Chronic GERD: Comment: pantoprazole 40 QD- Code(s): K21.9 - Gastro-esophageal reflux disease without esophagitis Plan F/u 3 weeks - Barium study Orders: Orders [place] barium swallow 03/17/23 R13.10 - Dysphagia, unspecified, K21.9 - Gastro- esophageal reflux disease without esophagitis Medications: New methylcellulose (with sugar) (Citrucel (sucrose) oral powder) 1 tbsp PO BID 454 grams 0RF 30 days Patient Instructions: F/u 3 weeks - Barium study Coding Level of Care Code Est Pt Level 4 (86416) Diagnoses Odynophagia R13.10 Chronic GERD K21.9 Time Spent (min) 45
== END 2023-03-17 09:52 | disposition home or self-care (01) ==
PROVIDERS: PCP Physician Assistant; Visit Provider Physician Assistant
DX: R13.10 Dysphagia, unspecified (principal); K21.9 Gastro-esophageal reflux disease without esophagitis
CPT/HCPCS: 99214

== ENCOUNTER → 2023-03-17 08:41 | Outpatient (BNVA) | payer OTHER, SELFPAY | PROVIDERS: PCP Physician Assistant; Visit Provider Physician Assistant | DX: K21.9 Gastro-esophageal reflux disease without esophagitis (principal); R13.10 Dysphagia, unspecified | CPT/HCPCS: 99212 ==

== ENCOUNTER 2023-04-01 10:31 | Outpatient (REF) | payer OTHER, SELFPAY ==
--- NOTE | ~2023-04-01 | FL_ITS ---
EXAMINATION: FL BARIUM SWALLOW CLINICAL INFORMATION: Dysphagia. COMPARISON: None available. TECHNIQUE: Barium swallow examination is performed using fluoroscopic evaluation in addition to multiple fluoroscopic spot views. The patient is imaged both upright and prone and using both thick and thin sulfate along with effervescent granules. Fluoroscopy time: 0.9 minutes. DAP: 9.3 Gycm2. Images: 25. FINDINGS: Following oral administration of thick barium and barium-coated turkey in upright view, there is normal propagation of bolus from the oral cavity through the pharynx, esophagus into stomach without obstruction, narrowing or stricture. There is no intraluminal filling defect or extrinsic compression. The GE junction is widely patent. Especially no abnormality seen in the pharynx or upper esophagus. FL/FL barium swallow IMPRESSION: Unremarkable barium swallow exam.
== END 2023-04-01 10:32 | disposition home or self-care (01) ==
LOC: HO.XRAY 10:31
PROVIDERS: PCP Physician Assistant; Visit Provider Physician Assistant
DX: K21.9 Gastro-esophageal reflux disease without esophagitis (principal); R13.10 Dysphagia, unspecified
CPT/HCPCS: 74220

== ENCOUNTER → 2023-04-01 10:32 | Outpatient (BNV) | payer OTHER, SELFPAY | PROVIDERS: PCP Physician Assistant; Visit Provider Radiology Diagnostic Radiology | DX: R13.10 Dysphagia, unspecified (principal) | CPT/HCPCS: 74220 ==

== ENCOUNTER 2023-04-14 14:27 | Outpatient (AMB) | payer OTHER, SELFPAY ==
[2023-04-14 14:33] VITALS: BP 125/59; PULSE 85; BMI 44.0
--- NOTE | 2023-04-14 14:33 | A.OFFVIS_ITS ---
Intake Vital Signs 04/14/23 14:33 Height 5 ft 5 in Weight 264 lb 8.875 oz BMI 44.0 BP 125/59 L Blood Pressure Location Lt brachial Position Sitting Pulse 85 Intake Visit Reasons: 3 wk follow up Intake Note: Rod presents in the office as a 3 week follow up. CC: States that he is still having issues with his throat. Cardiopulmonary Technician And Eeg Tech Required: No Allergies Sulfa (Sulfonamide Antibiotics) [SULFA (SULFONAMIDE ANTIBIOTICS)] Allergy (Intermediate, Verified 04/14/23 14:34) SWOLLEN TONGUE sulfa Allergy (Unknown, Uncoded 04/14/23 14:34) swollen tongue Medication List - Last Reconciled 04/14/23 by Latia Peacock PA-C alum-mag hydroxide-simeth 200-200-20 mg/5 mL (Maalox Advanced) 5 mL PO 5XD PRN fluticasone propionate 50 mcg/actuation 1 spray intranasal DAILY loratadine 10 mg PO DAILY methylcellulose (with sugar) (Citrucel (sucrose) oral powder) 1 tbsp PO BID 30 days naproxen (Naprosyn) 500 mg PO BID PRN pantoprazole 40 mg PO BID HPI HPI Comments History of Present Illness Details A 32? y/o male with odynophagia- had work up ENT- bronch-x 2 improved on 2nd scope- benadryl- has since discontinued. He was seen in the ED 02/28/23- transferred to [facility] for 2 days- discharged on benadryl. Says likely smoke caused his symptoms- from apartment complex he lives- he says sx exacerbate with the smoke Has some discomfort when he swallows- but improved- no choking/ gagging N/V He saw Pinion Staker yesterday Barium swallow [facility] Medical History Chronic GERD Gout History of varicose veins Klippel Trenaunay syndrome Morbid obesity Overweight Partial small bowel obstruction Partial small bowel obstruction SBO (small bowel obstruction) Surgical History History of bowel resection History of colonoscopy History of laparotomy History of vascular surgery Hx of endoscopy Hx of tonsillectomy Status post orchiopexy Family History Father No problems noted. Mother No problems noted. Maternal Grandmother Hx of colon cancer, stage I Social History Household Members: Family Household Members Other:: mother Housing: House Do you presently have visiting nurse or other home services: No Alcohol intake: never Patient Tobacco Use Status: Never used Tobacco service: No Current occupational status: disabled Review of Systems Const All systems reviewed & are unremarkable except as noted in HPI and below ENT Reports dysphagia Card Denies chest pain and Denies dyspnea Resp Denies dyspnea GI Denies abdominal pain, Reports dysphagia and Reports heartburn Physical Exam Vital Signs: Last Vital Signs Pulse 85 04/14/23 14:33 BP 125/59 L 04/14/23 14:33 BMI result Body Mass Index 44.0 Const General: cooperative and comfortable Orientation/consciousness: patient oriented x3 Limitations: no limitations Resp Effort & Inspection: normal respiratory effort and able to speak in complete sentences Auscultation: clear to auscultation bilaterally Neuro General: patient oriented x3 Extrem General: Yes full ROM Psych Appearance: grossly normal Mental Status: mental status grossly normal Speech and movement: Normal speech and movement present and Clear speech present Affect: normal affect Attitude: cooperative Thought process: Normal thought process present Assessment & Plan Assessment & Plan (1) Odynophagia: Comment: He is scheduled for another test for vocal cords by ENT- he is unsure- Get records BH- Carpal tunnel surgery next month Code(s): R13.10 - Dysphagia, unspecified (2) Morbid obesity: Code(s): E66.01 - Morbid (severe) obesity due to excess calories (3) Chronic GERD: Comment: pantoprazole 40 QD- Code(s): K21.9 - Gastro-esophageal reflux disease without esophagitis Plan: EGD-if no findings by ENT Medications: Refilled pantoprazole 40 mg PO BID 60 tabs 1RF Patient Instructions: 32-year-old male odynophagia-he is being followed by allergy as well as ENT. He has of scheduled ENT visit coming up in which he will call us with status report. If-no findings will proceed to EGD-he will continue pantoprazole, eat slowly chew food well Enourage to call with questions or concerns Appreciate the opportunity assist in the care the patient Coding Level of Care Code Est Pt Level 3 (82673) Diagnoses Odynophagia R13.10 Morbid obesity E66.01 Chronic GERD K21.9 Time Spent (min) 30
== END 2023-04-14 15:06 | disposition home or self-care (01) ==
PROVIDERS: PCP Physician Assistant; Visit Provider Physician Assistant
DX: R13.10 Dysphagia, unspecified (principal); E66.01 Morbid (severe) obesity due to excess calories; K21.9 Gastro-esophageal reflux disease without esophagitis
CPT/HCPCS: 99213

== ENCOUNTER → 2023-04-14 14:27 | Outpatient (BNVA) | payer OTHER, SELFPAY | PROVIDERS: PCP Physician Assistant; Visit Provider Physician Assistant | DX: R13.10 Dysphagia, unspecified (principal); K21.9 Gastro-esophageal reflux disease without esophagitis; E66.01 Morbid (severe) obesity due to excess calories | CPT/HCPCS: 99212 ==

== ENCOUNTER 2023-08-24 10:47 | Outpatient (REF) | payer OTHER, SELFPAY ==
[2023-08-24 11:14] LABS: MANUAL DIFF FLAG NO
[2023-08-24 11:49] LABS: Basophils Percent Auto 0.5 % (0-2); Eosinophils Absolute Auto 0.1 X10*3/uL (0.0-0.4); Eosinophils Percent Auto 1.8 % (0-4); Hematocrit 48.7 % (42.0-52.0); Hemoglobin 16.9 g/dl (14.0-18.0); Imm Gran Abs Auto 0.02 X10*3/uL (0.00-0.03); Imm Gran Pct Auto 0.4 % (0.0-0.4); Lymphocytes Absolute Auto 1.7 X10*3/uL (1.2-4.9); Mean Corpuscular HGB Conc 34.7 g/dl (31.0-36.0); Mean Corpuscular Hemoglobin 29.9 pg (27.0-33.0); Mean Platelet Volume 10.5 fL (9.4-12.4); Monocytes Absolute Auto 0.6 X10*3/uL (0.1-1.2); Neutrophils Absolute Auto 3.1 x10*3/uL (2.0-8.3); Neutrophils Percent Auto 56.3 % (45-73); Platelet Count 208 X10*3/uL (160-400); Red Blood Count 5.66 X10*6/uL (4.60-5.80); Red Cell Distribution Width 13.2 % (11.0-16.0); White Blood Count 5.5 X10*3/uL (4.8-10.8)
[2023-08-24 11:59] LABS: Fibrinogen 455 MG/DL (259-690); Prothrombin Time 12.7 SEC (11.1-13.3)
[2023-08-24 12:01] LABS: D Dimer High Sensitivity 247 NG/ML; Partial Thromboplastin Time 39.4 SEC (26.0-36.4)
[2023-08-24 12:26] LABS: Alanine Aminotransferase 50 U/L (0-40); Albumin Level 4.5 g/dL (3.5-5.0); Alkaline Phosphatase 59 U/L (39-117); Anion Gap 11 (12-20); Aspartate Amino Transferase 26 U/L (5-37); Bilirubin Direct 0.4 mg/dL (0.0-0.5); Bilirubin Total 1.2 mg/dL (0.0-1.0); Blood Urea Nitrogen 18 mg/dL (9-16); C Reactive Protein 0.16 mg/dL (< or = 0.50); Calcium 9.9 mg/dL (8.4-10.2); Carbon Dioxide 29 mmol/L (22-29); Chloride 107 mmol/L (96-108); Cholesterol 139 mg/dL (<200); Estimated Glomerular Filt Rate > 60; Glucose Random 90 mg/dL (60-115); HDL Cholesterol 24 mg/dL (>40); Iron 162 mcg/dL (45-160); LDL Cholesterol Calculated 96 mg/dL (<100); Magnesium 2.1 mg/dL (1.6-2.6); Percent Iron Saturation 61 % (15-50); Phosphorus 2.8 mg/dL (2.7-4.5); Potassium 4.5 mmol/L (3.3-5.1); Sodium 142 mmol/L (135-145); Total Iron Binding Capacity 266 mcg/dL (228-428); Total Protein 7.5 g/dL (6.5-8.0); Triglycerides 95 mg/dL (<150); Unsaturated Iron Binding 104 ug/dL
[2023-08-24 12:31] LABS: Erythrocyte Sedimentation Rate 2 MM/HR (0-15)
[2023-08-24 12:42] LABS: Ferritin 228 ng/mL (20-250)
== END 2023-08-24 10:48 | disposition home or self-care (01) ==
LOC: HO.LAB 10:47
PROVIDERS: PCP Physician Assistant; Visit Provider Anesthesiology
DX: Q27.8 Other specified congenital malformations of peripheral vascular system (principal); I87.8 Other specified disorders of veins
CPT/HCPCS: 36415; 80053; 80061; 82248; 82728; 83540; 83735; 84100; 85025; 85379; 85384; 85610; 85652; 85730; 86140

== ENCOUNTER 2024-07-16 15:04 | Outpatient (AMB) | payer OTHER, SELFPAY ==
--- NOTE | 2024-07-16 15:23 | MHC.OFFVIS ---
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 While every effort has been made to ensure accuracy, developer architect errors may have been included. The patient is a 33 year old male who presents to the clinic today with right-sided ear pain. He reports a history of chronic ear infections which have led to tympanostomy tubes, which he currently has in. He reports pain in the ear, slight warmth to the area. He denies fever, chills, cough, shortness of breath, or other URI symptoms. He reports some reduced hearing in that ear. [facility] Medical History Chronic GERD Gout History of varicose veins Klippel Trenaunay syndrome Morbid obesity Overweight Partial small bowel obstruction Partial small bowel obstruction SBO (small bowel obstruction) Surgical History History of bowel resection History of colonoscopy History of laparotomy History of vascular surgery Hx of endoscopy Hx of tonsillectomy Status post orchiopexy Family History Father No problems noted. Mother No problems noted. Maternal Grandmother Hx of colon cancer, stage I Social History Household Members: Family Household Members Other:: mother Housing: House Do you presently have visiting nurse or other home services: No Alcohol intake: never Comment: pt has h/a now we are trying other interventions for now Patient Tobacco Use Status: Never used Tobacco service: No Current occupational status: disabled Review of Systems Const All systems reviewed & are unremarkable except as noted in HPI and below Physical Exam Vital Signs: Last Vital Signs Temp 97.4 F 07/16/24 15:24 Pulse 97 07/16/24 15:24 BP 132/84 07/16/24 15:24 Pulse Ox 97 07/16/24 15:24 Oxygen Delivery Method Room Air 07/16/24 15:24 BMI result Body Mass Index 42.3 Const General: cooperative, healthy appearing, comfortable and no acute distress Orientation/consciousness: patient oriented x3 HEENT Head: Yes normal to inspection, Yes No palpable skull fracture present and Yes normocephalic Ears: hearing grossly normal bilaterally, external ears normal, EAC's normal, mastoids normal (no TTP) bilaterally and TM abnormal erythematous, with myringotomy tube present bilateral and other (Purulent drainage) General nose exam: Normal external nose present Face and sinus: Yes normal facial exam Mouth: Normal oral and palatal mucosa present Teeth and gingiva: dentition normal Throat: Yes posterior oropharynx normal Eyes General: appearance normal, both eyes and all related structures Neck Neck: Yes normal visual inspection, Yes full ROM, Yes no lymphadenopathy, Yes no meningeal signs, Yes trachea midline and Yes supple Resp Effort & Inspection: normal respiratory effort and able to speak in complete sentences Skin General skin exam: no rashes or lesions noted Neuro General: patient oriented x3 and no meningeal signs Assessment & Plan Assessment & Plan (1) Otitis media: Code(s): H66.90 - Otitis media, unspecified, unspecified ear Qualifiers: Otitis media type: suppurative Chronicity: acute Laterality: right Recurrence: non-recurrent Spontaneous tympanic membrane rupture: without spontaneous rupture Qualified Code(s): H66.001 - Acute suppurative otitis media without spontaneous rupture of ear drum, right ear Plan: Supportive measures encouraged and reviewed. Antibiotic sent to requested pharmacy, advised patient to take antibiotics until completed and not to stop if feeling better, unless the patient has side effects. Advised consideration of follow up with ENT given additional infection with tubes in place. Advised patient to follow up with primary care provider with worsening or failure to resolve. Plan See above for full details and plan. Medications: New amoxicillin-pot clavulanate 875-125 mg 1 tab PO BID 7 days 14 tabs 0RF Coding Level of Care Code Est Pt Level 3 (82268) Diagnoses Non-recurrent acute suppurative otitis media of right ear without spontaneous rupture of tympanic membrane H66.001 Otitis media type: suppurative Chronicity: acute Laterality: right Recurrence: non-recurrent Spontaneous tympanic membrane rupture: without spontaneous rupture
[2024-07-16 15:24] VITALS: BP 132/84; PULSE 97; TEMP 36.3; O2SAT 97; BMI 42.3
== END 2024-07-16 16:28 | disposition home or self-care (01) ==
PROVIDERS: PCP Physician Assistant; Visit Provider Registered Nurse
DX: H66.001 Acute suppurative otitis media without spontaneous rupture of ear drum, right ear (principal)

== ENCOUNTER → 2024-07-16 15:04 | Outpatient (BNVA) | payer OTHER, SELFPAY | PROVIDERS: PCP Physician Assistant; Visit Provider Registered Nurse | DX: H66.001 Acute suppurative otitis media without spontaneous rupture of ear drum, right ear (principal) | CPT/HCPCS: 99212 ==

== ENCOUNTER 2025-01-23 02:46 | Emergency (ER) | payer OTHER, SELFPAY ==
--- NOTE | ~2025-01-23 | XR_ITS ---
CLINICAL HISTORY: pain hx gout ? injury 4 view right knee Comparison: None Findings: Bones intact. No dislocations. No significant loss of joint space, osteophytes, or erosions. No joint effusion. No radiopaque foreign body. IMPRESSION: 1. No acute findings. This document has been electronically signed by: Brendan Castano MD on 01/23/2025 07:30:40
--- NOTE | ~2025-01-23 | US_ITS ---
EXAMINATION: US TRIPLEX LOWER EXTREMITY, RIGHT CLINICAL INFORMATION: Pain and edema, right lower extremity COMPARISON: February 23, 2018 report TECHNIQUE: Color-flow triplex imaging with spectral analysis and compression Doppler were performed on the right lower extremity. FINDINGS: Respiratory variation, normal compression and augmented flow are present throughout the interrogated common femoral vein, superficial femoral vein, profunda femoral vein, popliteal vein and midcalf peroneal and posterior tibial venous segments . There is no Reynoso's cyst. US/US venous duplex LE RT IMPRESSION: No acute deep venous thrombosis interrogated veins, right lower extremity. Negative for DVT. Electronically signed by: Barry Lara MD 01/23/2025 08:51 AM EDT
[2025-01-23 03:11] VITALS: BP 150/71; PULSE 80; RESP 18; TEMP 36.6; O2SAT 98; BMI 39.9
[2025-01-23 03:56] LABS: MANUAL DIFF FLAG NO
[2025-01-23 03:58] LABS: Basophils Percent Auto 0.4 % (0-2); Eosinophils Absolute Auto 0.2 X10*3/uL (0.0-0.4); Eosinophils Percent Auto 2.1 % (0-4); Hematocrit 42.8 % (42.0-52.0); Hemoglobin 15.2 g/dl (14.0-18.0); Imm Gran Abs Auto 0.03 X10*3/uL (0.00-0.03); Imm Gran Pct Auto 0.4 % (0.0-0.4); Lymphocytes Percent Auto 27.4 % (20-40); Mean Corpuscular HGB Conc 35.5 g/dl (31.0-36.0); Mean Corpuscular Hemoglobin 30.8 pg (27.0-33.0); Mean Corpuscular Volume 86.6 fL (80.0-98.0); Mean Platelet Volume 8.9 fL (9.4-12.4); Monocytes Absolute Auto 0.7 X10*3/uL (0.1-1.2); Monocytes Percent Auto 9.8 % (2-11); Neutrophils Absolute Auto 4.3 x10*3/uL (2.0-8.3); Neutrophils Percent Auto 59.9 % (45-73); Platelet Count 268 X10*3/uL (160-400); Red Blood Count 4.94 X10*6/uL (4.60-5.80); Red Cell Distribution Width 12.8 % (11.0-16.0); White Blood Count 7.2 X10*3/uL (4.8-10.8)
[2025-01-23 05:03] LABS: Alanine Aminotransferase 60 U/L (0-40); Albumin Level 4.7 g/dL (3.5-5.0); Alkaline Phosphatase 49 U/L (39-117); Anion Gap 12 (12-20); Aspartate Amino Transferase 42 U/L (5-37); Bilirubin Total 0.7 mg/dL (0.0-1.0); Blood Urea Nitrogen 14 mg/dL (9-16); Calcium 9.5 mg/dL (8.4-10.2); Carbon Dioxide 23 mmol/L (22-29); Chloride 110 mmol/L (96-108); Creatinine Clr Calc Pharmacy 128.9; Estimated Glomerular Filt Rate > 60; Glucose Random 129 mg/dL (60-115); Potassium 4.1 mmol/L (3.3-5.1); Sodium 141 mmol/L (135-145); Total Protein 7.5 g/dL (6.5-8.0)
[2025-01-23 06:41] VITALS: BP 144/75; PULSE 70; RESP 20; O2SAT 98
[2025-01-23] MEDS: predniSONE 20 MG TABLET 40 MG PO (08:36)
[2025-01-23] MEDS: Ketorolac Tromethamine 30 MG/ML VIAL IM (08:36)
--- NOTE | 2025-01-23 08:41 | PC.NURSE ---
Pt medicated per orders except for PO morphine, as pt is driving home
--- NOTE | 2025-01-23 08:49 | ED.EXTPRO ---
HPI - Extremity Problem General Chief complaint: Extremity Problem Stated complaint: gout Time Seen by Provider: 01/23/25 07:27 Source: patient and family Mode of arrival: ambulatory Limitations: no limitations History of Present Illness ED Provider: SHE HPI Narrative: 34 yo male with PMH of varicose veins, GOUT, GERD here with c/o R knee injury about 5 days ago that he think he exacerbated but he is not totally sure. He also notes his R ankle and foot hurt - he has no fevers, rash, recent travel or procedures. He denies CP/SOB. He states they usually give him naprosyn and it feels better. He states he tried to wrap it with an matty wrap to help. MD Complaint: extremity pain, joint swelling and joint pain Onset (ago): day(s) (5) Pain Consistency: constant Location: right, knee and other (foot) Quality: aching Radiation: none Associated symptoms: denies other symptoms Related Data Home Medications ?Medication ?Instructions ?Recorded ?Confirmed fluticasone propionate 50 1 spray intranasal DAILY 04/14/23 04/14/23 mcg/actuation nasal spray,suspension clotrimazole 10 mg bon 10 mg PO 07/16/24 levocetirizine 5 mg tablet mg PO 07/16/24 Previous Rx's ?Medication ?Instructions ?Recorded naproxen 500 mg tablet (Naprosyn) 500 mg PO BID PRN pain #14 tabs 01/25/23 amoxicillin 875 mg-potassium 1 tab PO BID 7 days #14 tabs 07/16/24 clavulanate 125 mg tablet cyclobenzaprine 10 mg tablet 10 mg PO TID PRN muscle spasm #20 01/23/25 tabs morphine 15 mg immediate release 15 mg PO Q6H PRN pain #12 tabs 01/23/25 tablet prednisone 20 mg tablet 40 mg (2 x 20 mg) PO DAILY 4 days 01/23/25 #8 tabs Allergies Allergy/AdvReac Type Severity Reaction Status Date / Time Sulfa (Sulfonamide Allergy Intermediate SWOLLEN Verified 01/23/25 03:15 Antibiotics) TONGUE [SULFA (SULFONAMIDE ANTIBIOTICS)] sulfa Allergy Unknown swollen Uncoded 07/16/24 15:26 tongue Review of Systems Review of Systems: Constitutional : No Fever, No Chills ENT/Mouth : No Ear Pain, No Hoarseness, No sore throat Eyes: No Eye Pain, No Swelling, No Redness, No Foreign Body Cardiovascular : No Chest Pain, No SOB Respiratory : No Cough, No Dyspnea Gastrointestinal : No Nausea, No Vomiting, No Diarrhea, No abdominal Pain Genitourinary : No Dysuria, No Hematuria Musculoskeletal : positive joint pain, No Myalgias, pos Joint Swelling Skin : No Skin lacerations, No rash Neuro : No Weakness, No Numbness, No Loss of Consciousness, No Dizziness, No Headache All other systems reviewed and are negative [facility] Past Medical History Attestation statement: The following information was validated with the patient. Source: old records reviewed Medical History Partial small bowel obstruction Morbid obesity Overweight Partial small bowel obstruction History of varicose veins Gout Klippel Trenaunay syndrome SBO (small bowel obstruction) Chronic GERD Surgical History History of vascular surgery History of bowel resection Status post orchiopexy History of laparotomy Hx of tonsillectomy History of colonoscopy Hx of endoscopy Family History Family History Father No problems noted. Mother No problems noted. Maternal Grandmother Hx of colon cancer, stage I Social History Social History Household Members: Family Household Members Other:: mother Housing: House Do you presently have visiting nurse or other home services: No Alcohol intake: never Comment: pt has h/a now we are trying other interventions for now Patient Tobacco Use Status: Never used Tobacco Advance Directives: No Advance Directives Information Provided: Yes Do you have a plan to hurt others: No Plan service: No Current occupational status: disabled Physical Exam Vital Signs: Vital Signs: Last Vital Signs Temp 97.8 F 01/23/25 03:11 Pulse 70 01/23/25 06:41 Resp 20 01/23/25 06:41 BP 144/75 H 01/23/25 06:41 Pulse Ox 98 01/23/25 06:41 O2 Del Method Room Air 01/23/25 06:41 BMI result Body Mass Index 39.9 Appearance: Alert. Oriented X3. No acute distress. Eyes: Pupils equal, round and reactive to light. ENT: Pharynx normal. Neck: Normal inspection. Neck supple. CVS: Normal heart rate and rhythm. Pulses normal. Respiratory: No respiratory distress. Breath sounds normal. Abdomen: Soft and nontender. Skin: Skin warm and dry. Normal skin color. Normal skin turgor. Extremities: No lower extremity edema. R knee ttp but no swelling, no rash, R ankle mild swelling NV intact but no warmth or rash to suggest cellulitis. Neuro: Oriented X 3. No motor deficit. No sensory deficit. CN2-12 intact Medications Administered Discontinued Medications Generic Name Dose Route Start Last Admin Trade Name Lewisq PRN Reason Stop Dose Admin Ketorolac Tromethamine 30 mg 01/23/25 07:40 01/23/25 08:36 Ketorolac Tromethamine 30 Mg/Ml Vial IM 01/23/25 07:41 30 mg ONCE ONE Administration Morphine Sulfate 15 mg 01/23/25 07:40 01/23/25 08:40 Morphine Sulfate Immed Release 15 Mg Tablet PO 01/23/25 07:41 Not Given ONCE ONE Prednisone 40 mg 01/23/25 07:40 01/23/25 08:36 Prednisone 20 Mg Tablet PO 01/23/25 07:41 40 mg ONCE ONE Administration Medical Decision Making Medical Decision Making [facility] Narrative: 34 yo male with PMH of varicose veins, GOUT, GERD here with c/o R knee injury now here with R knee and ankle pain he is NV intact, there is no signs of redness or warm to suggest cellulitis or septic joint. Given his hx of varicose veins I have ordered labs along with DVT study. He will get xray given injury. He is aware he needs to see his doctor for closer follow up. Start on prednisone/pain medications. Differential Diagnosis Differential Diagnoses: The differential diagnosis associated with the presentation includes internal derangment of knee, DVT, gout Admission/Observation Consideration of admission/observation: Escalation of care including admission/observation considered feels much better stable for DC Lab Data [facility] Lab Attestation statement: I reviewed the patient's lab results. 01/23/25 03:51 01/23/25 03:51 Labs: Lab Results 01/23/25 Range/Units 03:51 WBC 7.2 (4.8-10.8) X10*3/uL RBC 4.94 (4.60-5.80) X10*6/uL Hgb 15.2 (14.0-18.0) g/dl Hct 42.8 (42.0-52.0) % MCV 86.6 (80.0-98.0) fL MCH 30.8 (27.0-33.0) pg MCHC 35.5 (31.0-36.0) g/dl RDW 12.8 (11.0-16.0) % Plt Count 268 D (160-400) X10*3/uL MPV 8.9 L (9.4-12.4) fL Immature Gran % (Auto) 0.4 (0.0-0.4) % Neut % (Auto) 59.9 (45-73) % Lymph % (Auto) 27.4 (20-40) % [place] % (Auto) 9.8 (2-11) % Eos % (Auto) 2.1 (0-4) % Baso % (Auto) 0.4 (0-2) % Lymph # (Auto) 2.0 (1.2-4.9) X10*3/uL [place] # (Auto) 0.7 (0.1-1.2) X10*3/uL Eos # (Auto) 0.2 (0.0-0.4) X10*3/uL Baso # (Auto) 0.0 (0.0-0.2) X10*3/uL Abs Immat Gran (auto) 0.03 (0.00-0.03) X10*3/uL Absolute Neuts (auto) 4.3 (2.0-8.3) x10*3/uL Absolute Nucleated RBC 0.000 (0.0-0.012) X10*3/uL Nucleated RBC % (auto) 0.0 (0.0-0.2) /100WBC Sodium 141 (135-145) mmol/L Potassium 4.1 (3.3-5.1) mmol/L Chloride 110 H (96-108) mmol/L Carbon Dioxide 23 (22-29) mmol/L Anion Gap 12 (12-20) BUN 14 (9-16) mg/dL Creatinine 0.91 (0.5-1.4) mg/dL Estim Creat Clear Calc 128.9 Estimated GFR > 60 Random Glucose 129 H (60-115) mg/dL Uric Acid 9.0 H (3.4-7.0) mg/dL Calcium 9.5 (8.4-10.2) mg/dL Total Bilirubin 0.7 (0.0-1.0) mg/dL AST 42 H (5-37) U/L ALT 60 H (0-40) U/L Alkaline Phosphatase 49 (39-117) U/L Total Protein 7.5 (6.5-8.0) g/dL Albumin 4.7 (3.5-5.0) g/dL Independent Interpretation I performed an independent interpretation of an: Plain X-Ray (no fx) and Ultrasound (no DVT) Radiology Impression Discussion of test interpretation with radiology: I have reviewed the radiologist's reading. Independent Historian Clinical information obtained from an independent historian. History obtained from or confirmed by: Parent External Record Review External record reviewed: Outpatient record Prescription Management I considered prescription management with: Pain Medication and Other Discharge Plan Discharge Clinical Impression: Gout Qualifiers: Gout site: ankle Gout etiology: unspecified cause Chronicity: acute Laterality: right Qualified Code(s): M10.9 - Gout, unspecified Knee pain Qualifiers: Chronicity: acute Laterality: right Qualified Code(s): M25.561 - Pain in right knee Patient Disposition: Home, Self-Care Instructions: Gout (ED), Arthralgia (ED) Additional Instructions: labs reassuring ultrasound shows no blood clot xray is normal you need to see your doctor if this continues to make sure there is no internal injury to meniscus or ligaments rest and keep elevated return for any worsening symptoms or concerns Prescriptions: New cyclobenzaprine 10 mg tablet 10 mg PO TID PRN (Reason: muscle spasm) Qty: 20 0RF prednisone 20 mg tablet 40 mg PO DAILY 4 Days Qty: 8 0RF morphine 15 mg tablet 15 mg PO Q6H PRN (Reason: pain) Qty: 12 0RF Rx Instructions: partial fill okay; Partial Fill upon patient request. No Action naproxen [Naprosyn] 500 mg tablet 500 mg PO BID PRN (Reason: pain) Qty: 14 0RF fluticasone propionate 50 mcg/actuation spray,suspension 1 spray intranasal DAILY levocetirizine 5 mg tablet PO clotrimazole 10 mg bon 10 mg PO amoxicillin-pot clavulanate 875-125 mg tablet 1 tab PO BID 7 Days Qty: 14 0RF Print Language: Amharic
[2025-01-23 09:00] VITALS: BP 150/76; PULSE 77; RESP 20; TEMP 36.2; O2SAT 98
[2025-01-23 09:55] VITALS: BP 150/76; PULSE 77; RESP 20; TEMP 36.2; O2SAT 98
== END 2025-01-23 09:56 | disposition home or self-care (01) ==
PROVIDERS: Emergency Provider Emergency Medicine; PCP Family Medicine
DX: M10.9 Gout, unspecified (principal); M25.561 Pain in right knee; M79.89 Other specified soft tissue disorders; Z86.79 Personal history of other diseases of the circulatory system
CPT/HCPCS: 36415; 73564; 80053; 84550; 85025; 93971; 96372; 99284; J1885

== ENCOUNTER → 2025-01-23 03:25 | Outpatient (BNV) | payer OTHER, SELFPAY | PROVIDERS: Emergency Provider Emergency Medicine; PCP Family Medicine; Visit Provider Radiology Diagnostic Radiology | DX: M79.661 Pain in right lower leg (principal); R22.41 Localized swelling, mass and lump, right lower limb; M25.561 Pain in right knee; Z87.39 Personal history of other diseases of the musculoskeletal system and connective tissue | CPT/HCPCS: 73564; 93971 ==

== ENCOUNTER 2025-05-21 11:13 | Outpatient (AMB) | payer OTHER, SELFPAY ==
[2025-05-21 11:36] VITALS: BP 128/76; PULSE 94; TEMP 37; O2SAT 96; BMI 43.9
--- NOTE | 2025-05-21 11:36 | MHC.OFFWIV ---
Intake Vital Signs 05/21/25 11:36 Height 5 ft 5 in Weight 264 lb BMI 43.9 BP 128/76 Blood Pressure Location Lt brachial Position Sitting Pulse 94 Pulse Source Pulse Oximeter Temp 98.6 F Temp Source Oral Pulse Oximetry (%) 96 Oxygen Delivery Method Room Air Intake Visit Reasons: EP Ear infection Intake Note: pt presents with RT ear pain for a couple weeks, completed zpak and ear drops today prescribed from [facility] Patient Tobacco Use Status: Never used Tobacco Allergies Sulfa (Sulfonamide Antibiotics) (SULFA (SULFONAMIDE ANTIBIOTICS)) Allergy (Intermediate, Verified 05/21/25 11:39) SWOLLEN TONGUE Medication List - Last Reconciled 05/21/25 by Keiry Gillette MD allopurinol 200 mg PO DAILY levocetirizine mg PO naproxen (Naprosyn) 500 mg PO BID PRN Do you need a note to return to daycare/school/sports/work: No HPI EP Ear infection HPI Details History of Present Illness The patient is a 34-year-old male presenting with right ear pain. Right ear pain: - Duration: A couple of weeks. - Initial treatments: The patient has been on two courses of antibiotics, first with amoxicillin and then azithromycin and has also used neomycin ear drops, all of which have been ineffective. - Severity and associated symptoms: The pain causes discomfort and has been accompanied by a feeling of being rundown and occasional dizziness. - Past interventions: Ear tube is present in the affected ear. No use of Q-tip - Other symptoms: Some throat irritation, potentially due to postnasal drip. - History note: Patient reports not having seen his ENT for some time. 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 - Consider visiting an ENT specialist if the pain does not resolve with current treatments. - Medications will be available at [facility] pharmacy . Review of Systems - General: No fever no chills - Neurological: No headaches no dizziness - Ear nose throat: no hearing difficulty no ear pain - Cardiovascular: No syncope, no chest pain, no palpitations - Gastrointestinal: No nausea vomiting or diarrhea Physical Exam General: No acute distress, feeling rundown HEENT: Ear tubes present in both ears with mild erythema Neck: Supple Respiratory system: Able to talk in full sentences, no audible wheeze, no coughing Gastrointestinal: No pain Patient was informed and verbally consented to the use of an ambient scribe for clinic note documentation during this visit. [facility] Medical History Partial small bowel obstruction Morbid obesity Overweight Partial small bowel obstruction History of varicose veins Gout Klippel Trenaunay syndrome SBO (small bowel obstruction) Chronic GERD Surgical History History of vascular surgery History of bowel resection Status post orchiopexy History of laparotomy Hx of tonsillectomy History of colonoscopy Hx of endoscopy Family History Father No problems noted. Mother No problems noted. Maternal Grandmother Hx of colon cancer, stage I Social History Household Members: Family Household Members Other:: mother Housing: House Do you presently have visiting nurse or other home services: No Alcohol intake: never Comment: pt has h/a now we are trying other interventions for now Patient Tobacco Use Status: Never used Tobacco service: No Current occupational status: disabled Physical Exam Vital Signs: Last Vital Signs Temp 98.6 F 05/21/25 11:36 Pulse 94 05/21/25 11:36 BP 128/76 05/21/25 11:36 Pulse Ox 96 05/21/25 11:36 Oxygen Delivery Method Room Air 05/21/25 11:36 BMI result Body Mass Index 43.9 Assessment & Plan Assessment & Plan (1) Acute pain of both ears: Code(s): H92.03 - Otalgia, bilateral Plan History of Present Illness The patient is a 34-year-old male presenting with right ear pain. Right ear pain: - Duration: A couple of weeks. - Initial treatments: The patient has been on two courses of antibiotics, first with amoxicillin and then azithromycin and has also used neomycin ear drops, all of which have been ineffective. - Severity and associated symptoms: The pain causes discomfort and has been accompanied by a feeling of being rundown and occasional dizziness. - Past interventions: Ear tube is present in the affected ear. No use of Q-tip - Other symptoms: Some throat irritation, potentially due to postnasal drip. - History note: Patient reports not having seen his ENT for some time. 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 - Consider visiting an ENT specialist if the pain does not resolve with current treatments. - Medications will be available at [facility] pharmacy . Review of Systems - General: No fever no chills - Neurological: No headaches no dizziness - Ear nose throat: no hearing difficulty no ear pain - Cardiovascular: No syncope, no chest pain, no palpitations - Gastrointestinal: No nausea vomiting or diarrhea Physical Exam General: No acute distress, feeling rundown HEENT: Ear tubes present in both ears with mild erythema Neck: Supple Respiratory system: Able to talk in full sentences, no audible wheeze, no coughing Gastrointestinal: No pain Patient was informed and verbally consented to the use of an ambient scribe for clinic note documentation during this visit. Medications: New doxycycline hyclate 100 mg PO BID 14 caps 0RF prednisone 20 mg PO DAILY 5 tabs 0RF 5 days Coding Level of Care Code Est Pt Level 3 (55126) Diagnoses Acute pain of both ears H92.03
--- OUTSIDE RECORDS SUMMARY | 2025-05-21 14:03 | XMS_ITS | Encounter Summary ---
Author Organization [facility] Address [address] [place] [phone] Phone Care Team Providers Care Ceramist Name Role Phone Ericka Mcdonough Primary Care Prov ider Encounter Details Date Type Department Care Team (Late st Contact Info) Description 01/18/2018 Procedure Pass [facility] Endoscopy Admitting Dept Virtual Department [address] [place] [address] Social History Tobacco Use Types Packs/Day Years Used Date Smoking Tobacco: Never Smokeless Tobacco: Never Alcohol Use Standard Drinks/Week Comments Yes 1 (1 standard drink = 0.6 oz pur e alcohol) rare Sex and Gender Information Value Date Recorded Sex Assigned at Not on file Legal Sex Male 9:05 PM EDT Gender Identity Not on file Sexual Orientation Not on file documented as of this encounter Plan of Treatment Not on file documented as of this encounter Visit Diagnoses Not on filedocumented in this encounter Care Teams Ceramist Relationship Specialty Start Date End Date Ericka Mcdonough PA [address] [place] [address] PCP - General Emergency Medicine 01/18/18 documented as of this encounter Additional Source Comments The information contained in this document represents components of the legal health record. It is not the complete legal health record.[facility]
--- OUTSIDE RECORDS SUMMARY | 2025-05-21 14:03 | XMS_ITS | Clinical Summary ---
Author Organization [facility] Address [address] [place] [address] Phone Care Team Providers Care Fleet Salesperson Name Role Phone rEicka Mcdonough Primary Care Prov ider Allergies Active Allergy Reactions Criticality Noted Date Comments Sulfa (Sulfonamide Antibiotics) Anaphylaxis High Medications acetaminophen (TYLENOL) 500 MG tablet Take 500 mg by mouth every 6 (six) hours as needed for pain (specific location in comments). Active albuterol 90 mcg/actuation inhaler Inhale 2 puffs into the lungs every 6 (six) hours as needed for wheezing. Active diphenhydrAMINE (BENADRYL) 25 mg capsule Take 50 mg by mouth nightly as needed. Active famotidine (PEPCID) 20 MG tablet Take 20 mg by mouth. 0 11/27/2017 Active omeprazole (PRILOSEC) 10 MG capsule Take 10 mg by mouth daily. Active allopurinol (ZYLOPRIM) 300 MG tablet Take 300 mg by mouth daily. 0 02/27/2018 Active sucralfate (CARAFATE) 1 gram tablet Take 1 g by mouth nightly. at bedtime. 3 01/18/2018 Active Active Problems Problem Noted Date Diagnosed Date Status post carpal tunnel release 10/31/2017 Overview (10/31/2017): Right 10/26/[address] Hernandez Carpal tunnel syndrome of right wrist Immunizations Immunization Administration Dates Next Due COVID-19 (Pre-06/20) Pfizer Vaccine, mRNA, PF ,11/04/2020 Social History Tobacco Use Types Packs/Day Years Used Date Smoking Tobacco: Never Smokeless Tobacco: Never Alcohol Use Standard Drinks/Week Comments Yes 1 (1 standard drink = 0.6 oz pur e alcohol) rare Education Answer Date Recorded Are you interested in more education? Not on dinesh e 12/23/2022 Are you concerned about learning? Not on file 12/23/2022 No 12/23/2022 No 12/23/2022 Digital Access Answer Date Recorded No 01/18/2023 No 01/18/2023 No 01/18/2023 Reliable internet access at home? Not on file 01/18/2023 Device with a working camera? Not on file Sex and Gender Information Value Date Recorded Sex Assigned at Not on file Legal Sex Male 9:05 PM EDT Gender Identity Not on file Sexual Orientation Not on file Last Filed Vital Signs Vital Sign Reading Time Taken Comments Blood Pressure 112/64 01/18/2018 12:12 PM EDT Pulse 65 01/18/2018 12:12 PM EDT Temperature 36.4 C (97.5 F) 01/18/2018 12:01 PM EDT Respiratory Rate 16 01/18/2018 12:1 2 PM EDT Oxygen Saturation 98% 01/18/2018 12: 12 PM EDT Inhaled Oxygen Concentration - - Weight 121.4 kg (267 lb 9.6 oz) 023 11:03 AM EDT Height 167 cm (5' 5.75 ) 03/17/2023 11: 03 AM EDT Body Mass Index 43.52 03/17/2023 11:03 AM EDT Plan of Treatment Health Maintenance Due Date Last Done Comments LIPID PANEL 1989 DEPRESSION SCREENING 2001 HEPATITIS C SCREENING 2007 HIV ONE-TIME SCREENING (18-65 YEARS) 2007 CREATININE LEVEL 12/23/2018 12/23/2017 SCREENING FOR DIABETES 2024 12/23/2017 INFLUENZA VACCINE (#1) 2025 2, 06/20/2021, 06/02/2020, Additional history exists COVID-19 VACCINE ( season) 2025 05/14/2022, 01/04/2022, 06/20/2021, Additional history exists Adult Td,Tdap Booster 07/03/2031 07/03/2021 , 09/09/2011, 12/12/2001 HIB VACCINES Completed 02/07/1991, 07/07/1990 MENINGOCOCCAL VACCINES (ACWY) Completed 08/09/2006 SMOKING STATUS SCREENING (Once After 26 Yrs) Completed 04/17/2018 PNEUMOCOCCAL VACCINES (0-49 years) Aged Out 07/18/2019 No longer eligible based on patient's age to complete this topic HEPATITIS A VACCINES Aged Out No long er eligible based on patient's age to complete this topic MENINGOCOCCAL VACCINES (B) Aged Out N o longer eligible based on patient's age to complete this topic Medical Devices Implanted Type Area Broadcast Supervisor Device Identifier Shelf Expiration Date Model / Serial / Lot Stent For Varicocele Procedures Procedure Name Priority Date/Time Associated Diagnosis Comments COMPREHENSIVE METABOLIC PANEL Routine 12/23/2017 2:58 PM EDT Diarrhea, unspecified type from Last 3 Months or Most Recently Relevant to Health Maintenance Results * (ABNORMAL) Comprehensive metabolic panel (12/23/2017 2:58 PM EDT) SODIUM 146 133 - 146 mmol/L [facility] POTASSIUM 4.1 3.3 - 5.1 mmol/L [facility] CHLORIDE 105 96 - 108 mmol/L [facility] CO2 26 21 - 35 mmol/L [facility] BUN 16 6 - 19 mg/dL [facility] CREATININE 0.90 0.5 - 1.5 mg/dL [facility] GLUCOSE 110(H) 70 - 99 mg/dL [facility] ALBUMIN 4.6 3.9 - 4.8 g/dL [facility] TOTAL PROTEIN 7.3 6.5 - 8.0 g/dL [facility] CALCIUM 9.9 8.4 - 10.3 mg/dL [facility] ALKALINE PHOSPHATASE 51 39 - 117 U/L [facility] TOTAL BILIRUBIN 0.8 0.0 - 1.2 mg/dL [facility] AST 41(H) 0 - 37 U/L [facility] ALT 81(H) 0 - 40 U/L [facility] GLOBULIN 2.7 1 - 4.8 g/dL [facility] EGFR 116 >59 mL/min/1.7 3m2 [facility] Comment:If patient is black, multiply result by 1.159. The eGFR calculation has changed from the MDRD equation to the CKD-EPI equation as of November 01, 2017. ANION GAP 19 10 - 20 mmol/L [facility] Blood 12/23/2017 2:58 PM EDT 12/23/2017 3:02 PM EDT us Manisha GOMEZ LAB BLOOD ORDERABLES Final Result [facility] [address] [place] [address] from Last 3 Months or Most Recently Relevant to Health Maintenance Insurance CARE MEDICARE REPLACEMENT PATRICIA GARCIA [id number] CARE MEDICARE REPLACEMENT CARE MEDICARE REPLACEMENT MEDICARE REPLACEMENT CARE MEDICARE REPLACEMENT [facility] ONE CARE MEDICARE REPLACEMENT PATRICIA GARCIA [id number] Advance Directives For more information, please contact: [phone] (9AM - 5PM [facility], Tuesday-Tuesday) * Full Code (Presumed) (Latest Code Status on File) Date Activated Date Inactivated Comments 10/26/2017 12:31 PM 10/26/2017 5:06 PM Care Teams Fleet Salesperson Relationship Specialty Start Date End Date Ericka Mcdonough PA [address] [place] [address] PCP - General Emergency Medicine 01/18/18 Additional Source Comments The information contained in this document represents components of the legal health record. It is not the complete legal health record.[facility]
--- OUTSIDE RECORDS SUMMARY | 2025-05-21 14:03 | XMS_ITS | Encounter Summary ---
Author Organization [facility] Address [address] [place] [phone] Phone Care Team Providers Care Gifted Program Teacher Name Role Phone Ericka Mcdonough Primary Care Prov ider Encounter Details Date Type Department Care Team (Late st Contact Info) Description 03/30/2023 Procedure Pass [place] Admitting Dept - Virtual Department [address] [place] [address] Social History Tobacco Use Types Packs/Day Years [...] on filedocumented in this encounter Care Teams Gifted Program Teacher Relationship Specialty Start Date End Date Ericka Mcdonough PA [address] [place], [place] [id number] PCP - General Emergency Medicine 01/18/18 documented as of this encounter Additional Source Comments The information contained in this document represents components of the legal health record. It is not the complete legal health record.[facility]
--- OUTSIDE RECORDS SUMMARY | 2025-05-21 14:03 | XMS_ITS | Encounter Summary ---
Author Organization [facility] Address [address] [place] [phone] Phone Care Team Providers Care Medical Scientist Name Role Phone Unknown, Unknown Primary Care Provider Ericka Savage Primary Care Prov ider Encounter Details Date Type Department Care Team (Latest Contact Info) Description 12/23/2017 Transcribe Orders [facility] [address] [address] Manisha Bernabe PA [address] [place] [address] Diarrhea, unspecified type (Primary Dx) Social History Tobacco Use Types Packs/Day Years [...] on file documented as of this encounter Results * Lipase (12/23/2017 2:58 PM EDT) LIPASE 28 16 - 63 U/L [facility] Blood 12/23/2017 2:58 PM EDT 12/23/2017 3:02 PM EDT us Manisha GOMEZ LAB BLOOD ORDERABLES Final Result [address] [address] * (ABNORMAL) Comprehensive metabolic panel (12/23/2017 2:58 PM EDT) SODIUM 146 133 - 146 mmol/L [facility] POTASSIUM 4.1 3.3 - 5.1 mmol/L [facility] CHLORIDE 105 96 - 108 mmol/L [facility] CO2 26 21 - 35 mmol/L [facility] BUN 16 6 - 19 mg/dL [facility] CREATININE 0.90 0.5 - 1.5 mg/dL [facility] GLUCOSE 110(H) 70 - 99 mg/dL [facility] ALBUMIN 4.6 3.9 - 4.8 g/dL [facility] TOTAL PROTEIN 7.3 6.5 - 8.0 g/dL [facility] CALCIUM 9.9 8.4 - 10.3 mg/dL [facility] ALKALINE PHOSPHATASE 51 39 - 117 U/L [facility] TOTAL BILIRUBIN 0.8 0.0 - 1.2 mg/dL [facility] AST 41(H) 0 - 37 U/L [facility] ALT 81(H) 0 - 40 U/L [facility] GLOBULIN 2.7 1 - 4.8 g/dL [facility] EGFR 116 >59 mL/min/1.7 3m2 [facility] Comment:If patient is black, multiply result by 1.159. The eGFR calculation has changed from the MDRD equation to the CKD-EPI equation as of November 01, 2017. ANION GAP 19 10 - 20 mmol/L [facility] Blood 12/23/2017 2:58 PM EDT 12/23/2017 3:02 PM EDT us Manisha GOMEZ LAB BLOOD ORDERABLES Final Result Performing Organization Address [facility]/ZIP Co de Phone Number [address] [address] * (ABNORMAL) CBC (12/23/2017 2:58 PM EDT) WBC 5.05 3.40 - 11.20 K/uL [facility] RBC 5.21 4.50 - 5.50 M/uL [facility] HGB 16.1 13.0 - 17.0 g/dL [facility] HCT 44.6 40.0 - 51.0 % [facility] PLT 206 130 - 400 K/uL [facility] MCV 85.6 79.0 - 98.0 fL [facility] MCH 30.9 27.0 - 34.8 pg [facility] MCHC 36.1(H) 31.5 - 36.0 g/dL [facility] RDW 13.1 10.8 - 14.6 % [facility] MPV 10.1 9.4 - 12.4 fl [facility] NRBC 0.00 /100 WBCs [facility] ABSOLUTE NRBC 0.00 K/uL [facility] Blood 12/23/2017 2:58 PM EDT 12/23/2017 3:02 PM EDT us Manisha GOMEZ LAB BLOOD ORDERABLES Final Result [facility] [address] [place] [address] documented in this encounter Visit Diagnoses Diagnosis Diarrhea, unspecified type- Primary documented in this encounter Care Teams Medical Scientist Relationship Specialty Start Date End Date Unknown, Unknown, PCP - General 07/18/17 01/17/18 Ericka Mcdonough PA [address] [place] [phone] PCP - General Emergency Medicine 01/18/18 documented as of this encounter Additional Source Comments The information contained in this document represents components of the legal health record. It is not the complete legal health record.[facility]
--- OUTSIDE RECORDS SUMMARY | 2025-05-21 14:03 | XMS_ITS | Encounter Summary ---
Author Organization [facility] Address [address] [place] [address] [place] [address] Phone Care Team Providers Care Firer Boiler Name Role Phone Unknown, Unknown Primary Care Provider Ericka Savage Primary Care Prov ider Encounter Details Date Type Department Care Team (Late st Contact Info) Description 10/26/2017 Procedure Pass [place] Admitting Dept - Virtual Department [address] [place] [address] Social History Tobacco Use Types Packs/Day Years [...] on filedocumented in this encounter Care Teams Firer Boiler Relationship Specialty Start Date End Date Unknown, Unknown, PCP - General 07/18/17 01/17/18 Ericka Mcdonough PA [address] [place] [address] PCP - General Emergency Medicine 01/18/18 documented as of this encounter Additional Source Comments The information contained in this document represents components of the legal health record. It is not the complete legal health record.[facility]
--- OUTSIDE RECORDS SUMMARY | 2025-05-21 14:03 | XMS_ITS | Clinical Summary ---
Author Organization [address] Address [address] [place] [address] Phone Care Team Providers Care Diamond Picker Name Role Phone Thomas Troncoso MD Primary Care Provider [phone] Allergies Active Allergy Reactions Criticality Noted Date Comments Marijuana (Cannabis) Anaphylaxis High 03/09/2025 Sulfa (Sulfonamide Antibiotics) Swelling 02/26 Medications allopurinoL (ZYLOPRIM) 100 mg tablet Take 2 tablets (200 mg total) by mouth 1 (one) time each day. Active levocetirizine (XYZAL) 5 mg tablet Take by mouth 1 (one) time each day in the evening. Active Active Problems No known active problems Encounters Date Type Department Care Team Description 03/09/2025 1:00 PM EDT Office Visit Walk-In Clinic - [address] [phone] Bernardo Alcatnar PA Possible exposure to STI (Primary Dx) from Last 3 Months Social History Tobacco Use Types Packs/Day Years Used Date Smoking Tobacco: Never Assessed Sex and Gender Information Value Date Recorded Sex Assigned at Not on file Legal Sex Male 12:33 PM EST Gender Identity Not on file Sexual Orientation Not on file Obstetrics History Last Filed Vital Signs Vital Sign Reading Time Taken Comments Blood Pressure 129/78 03/09/2025 1:01 PM EDT Pulse 78 03/09/2025 1:01 PM EDT Temperature 36.2 C (97.1 F) 03/09/2025 1:01 PM EDT Respiratory Rate - - Oxygen Saturation 98% 03/09/2025 1:01 PM EDT Inhaled Oxygen Concentration - - Weight - - Height - - Body Mass Index - - Plan of Treatment Health Maintenance Due Date Last Done Comments Depression Screening 08/29/2024 Cholesterol Screening (Lipid Panel) 03/09/2025 Medicare Annual Wellness Visit 03/09/2025 Social Influencers of Health Screening 03/09/2025 Influenza Vaccine (#1) 2025 , 05/20/2023, 05/14/2022, Additional history exists DTaP,Tdap,and Td Vaccines (9 - Td or Tdap) 07/03/2031 07/03/2021, 09/09/2011, 11/22/2007, Additional history exists RSV Immunization Adult Patients (1 - 1-dose 75+ series) 2064 HIB Vaccines Completed 02/07/1991, 07/07/1990 IPV Vaccines Completed 12/07/1994, 08/30, 01/28/1991 MMR Vaccines Completed 12/07/1994, 01/28/1991 Hepatitis B Vaccines Completed 11/06/2001, 06/26/2001, 05/31/2001 Meningococcal ACWY Vaccine Completed 08/09/2006 Pneumococcal Vaccine: Pediatrics (0 to 5 Years) and At-Risk Patients (6 to 49 Years) Aged Out 07/18/2019 No longer eligible based on patient's age to complete this topic COVID-19 Vaccine Completed 06/10/2024, 08/2022, 05/20/2023, Additional history exists HIV Screening Completed 03/09/2025 Hepatitis C Screening Completed 03/09/2025 HPV Vaccines Aged Out No longer eligi ble based on patient's age to complete this topic Hepatitis A Vaccines Aged Out No long er eligible based on patient's age to complete this topic Meningococcal B Vaccine Aged Out No l onger eligible based on patient's age to complete this topic RSV Immunization Patients Under 20 months Aged Out No longer eligible based on patient's age to complete this topic Varicella Vaccines Aged Out No longer eligible based on patient's age to complete this topic Procedures Procedure Name Priority Date/Time Associated Diagnosis Comments HERPES SIMPLEX VIRUS 2 ANTIBODY, IGG Routine 03/09/2025 1:12 PM EDT Possible exposure to STI HERPES SIMPLEX VIRUS 1 ANTIBODY, IGG Routine 03/09/2025 1:12 PM EDT Possible exposure to STI HEPATITIS PANEL, ACUTE WITH REFLEX TO CONFIRMATION Routine 03/09/2025 1:12 PM EDT Possible exposure to STI TREPONEMA PALLIDUM ANTIBODY WITH REFLEX TO RPR AND PARTICLE AGGLUTINATION Routine 03/09/2025 1:12 PM EDT Possible exposure to STI HIV 1, 2 ANTIBODY, P24 ANTIGEN WITH REFLEX TO DIFFERENTIATION Routine 03/09/2025 1:12 PM EDT Possible exposure to STI CHLAMYDIA TRACHOMATIS AND NEISSERIA GONORRHOEAE PCR Routine 03/09/2025 1:12 PM EDT Possible exposure to STI from Last 3 Months Results * HIV 1,2 antibody, p24 antigen with reflex to differentiation (03/09/2025 1:12 PM EDT) HIV Combo AB/AG Negative Negative LAB CHEMISTRY METHOD 03/09/2025 8:01 PM EDT [facility] Blood Venous blood specimen / Unknown Venipuncture / Unknown 03/09/2025 1:12 PM EDT 03/09/2025 1:12 PM EDT Narrative [facility] - 03/09/2025 8:01 PM EDT This assay is a 4th generation assay allowing for earlier detection of HIV infection by detecting the presence of the HIV-1 p24 antigen as well as the traditional antibodies to HIV type 1 (including group O) and type 2. Use of a 4th generation assay is the current CDC recommendation for HIV screening. us Bernardo GOMEZ LAB BLOOD ORDERABLES Final Resul t [facility] [address] [place] [address], * Treponema pallidum antibody with reflex to RPR and particle agglutination (03/09/2025 1:12 PM EDT) T. Pallidum Antibodies Negative Negative LAB CHEMISTRY METHOD 03/09/2025 8:16 PM EDT [facility] Blood Venous blood specimen / Unknown Venipuncture / Unknown 03/09/2025 1:12 PM EDT 03/09/2025 1:12 PM EDT us Bernardo GOMEZ LAB BLOOD ORDERABLES Final Resul t Performing Organization Address City/[facility]/ZIP Co de Phone Number [facility] [address] [place] [address], [place] [phone] * Hepatitis panel, acute with reflex to confirmation (03/09/2025 1:12 PM EDT) Pathologist [facility] Hepatitis B Surface Ag Negative Negative LAB CHEMISTRY METHOD 03/09/2025 8:03 PM EDT [facility] Hepatitis A Antibody IgM Negative Negative LAB CHEMISTRY METHOD 03/09/2025 8:03 PM EDT [facility] Hep B Core IgM Negative Negative LAB CHEMISTRY METHOD 03/09/2025 8:03 PM EDT [facility] Hepatitis C Antibody Negative Negative LAB CHEMISTRY METHOD 03/09/2025 8:03 PM EDT [facility] Blood Venous blood specimen / Unknown Venipuncture / Unknown 03/09/2025 1:12 PM EDT 03/09/2025 1:12 PM EDT us Bernardo GOMEZ LAB BLOOD ORDERABLES Final Resul t Performing Organization Address City/[facility]/ZIP Co de Phone Number [facility] [address] [place] [address], [place] [phone] * Chlamydia trachomatis and Neisseria gonorrhoeae molecular study (03/09/2025 1:12 PM EDT) Pathologist [facility] Neisseria gonorrhoeae PCR Negative Negative LAB MOLECULAR DIAGNOSTICS METHOD 03/10/2025 10:44 AM EDT [facility] Chlamydia trachomatis PCR Negative Negative LAB MOLECULAR DIAGNOSTICS METHOD 03/10/2025 10:44 AM EDT [facility] Urine Urine specimen from urethra / Unknown Non-blood Collection / Unknown 03/09/2025 1:12 PM EDT 03/09/2025 1:12 PM EDT us Bernardo GOMEZ LAB MICROBIOLOGY - GENERAL ORDER MARIA DEL CARMEN Final Result Performing Organization Address [facility]/ZIP Co de Phone Number [facility] [address] [place] [address], [place] [phone] * Herpes simplex virus 2 antibody, IgG (03/09/2025 1:12 PM EDT) HSV 2 IgG 0.07 <=0.90 index sharon LAB CHEMISTRY METHOD 03/10/2025 8:33 AM EDT [facility] HSV-2 IgG Interpretation Negative Negative LAB CHEMISTRY METHOD 03/10/2025 8:33 AM EDT [facility] Blood Venous blood specimen / Unknown Venipuncture / Unknown 03/09/2025 1:12 PM EDT 03/09/2025 1:12 PM EDT us Bernardo GOMEZ LAB BLOOD ORDERABLES Final Resul t Performing Organization Address [facility]/ZIP Co de Phone Number [facility] [address] [place] [address], [place] [phone] * Herpes simplex virus 1 antibody, IgG (03/09/2025 1:12 PM EDT) HSV 1 IgG 0.09 <=0.90 index sharon LAB CHEMISTRY METHOD 03/10/2025 8:30 AM EDT [facility] HSV-1 IgG Interpretation Negative Negative LAB CHEMISTRY METHOD 03/10/2025 8:30 AM EDT [facility] Blood Venous blood specimen / Unknown Venipuncture / Unknown 03/09/2025 1:12 PM EDT 03/09/2025 1:12 PM EDT us Bernardo GOMEZ LAB BLOOD ORDERABLES Final Resul t [facility] [address] [place] [address], from Last 3 Months Insurance [facility] MEDIC[facility] Member Subscriber Plan / Payer (Ef fective 2022-Present) Name:ANANTH PINK Relation to Subscriber:Self Name:Ananth Pink Payer ID:[id number] Group ID:[id number] Type:Not on file Address: [place] [address] [place] [id number] Care Teams Diamond Picker Relationship Specialty Start Date End Date Thomas Troncoso MD [address] [place] [address] PCP - General Internal Medicine 03/09/25
--- OUTSIDE RECORDS SUMMARY | 2025-05-21 14:03 | XMS_ITS | Encounter Summary ---
Author Organization [facility] Address [address] [place] [address] Phone Care Team Providers Care Dredge Pumper Name Role Phone Ericka Mcdonough Primary Care Prov ider Encounter Details Date Type Department Care Team (Late st Contact Info) Description 10/30/2020 Procedure Pass [facility], Ct Scan - [address] [address] Social History Tobacco Use Types Packs/Day Years [...] on filedocumented in this encounter Care Teams Dredge Pumper Relationship Specialty Start Date End Date Ericka Mcdonough PA [address] [place] [address] PCP - General Emergency Medicine 01/18/18 documented as of this encounter Additional Source Comments The information contained in this document represents components of the legal health record. It is not the complete legal health record.[facility]
--- OUTSIDE RECORDS SUMMARY | 2025-05-21 14:03 | XMS_ITS | Encounter Summary ---
Author Organization [facility] Address [address] [place] [address] [place] [address] Phone Care Team Providers Care Animal Caregiver Name Role Phone Ericka Mcdonough Primary Care Prov ider Encounter Details Date Type Department Care Team (Late st Contact Info) Description 01/18/2023 Prep for Surgery [facility] [address] [place] [phone] Jacquie Hernandez MD [address] [place] [address] Orthopedics & Sports Medicine, [facility] [place] [address] Social History Tobacco Use Types Packs/Day Years [...] on filedocumented in this encounter Care Teams Animal Caregiver Relationship Specialty Start Date End Date Ericka Mcdonough PA [address] [place] [phone] PCP - General Emergency Medicine 01/18/18 documented as of this encounter Additional Source Comments The information contained in this document represents components of the legal health record. It is not the complete legal health record.[facility]
--- OUTSIDE RECORDS SUMMARY | 2025-05-21 14:03 | XMS_ITS | Clinical Summary ---
Author Organization [facility] Address [address] [place] [address] Phone Care Team Providers Care Art Professor Name Role Phone Leesa Francis MD Unavailable [phone] Loy Nye Unavailable [phone] Provider, Unable To Verify Primary Care Provider Unavailable Medications lidocaine (Lidoderm) 5 % transdermal patch See Instructions, Special Instructions: patch TOP daily, Dispense Quantity: 15 patch, Entered: 12/12/15 17:15:55 EDT 6 Active Social History Tobacco Use Types Packs/Day Years Used Date Smoking Tobacco: Never Assessed Sex and Gender Information Value Date Recorded Sex Assigned at Not on file Legal Sex Male 3:29 PM EDT Gender Identity Not on file Sexual Orientation Not on file Last Filed Vital Signs Vital Sign Reading Time Taken Comments Blood Pressure 133/72 08/11/2023 2:37 PM EST Pulse 65 08/11/2023 2:37 PM EST Temperature - - Respiratory Rate - - Oxygen Saturation 99% 08/11/2023 2:37 PM EST Inhaled Oxygen Concentration - - Weight 106 kg (233 lb 0.4 oz) 11/11/2023 3:56 PM EDT Height 165.7 cm (5' 5.24 ) 08/11/2023 2:37 PM ES T Body Mass Index 38.5 08/11/2023 2:37 PM EST Plan of Treatment Health Maintenance Due Date Last Done Comments HIV Screening 1989 Varicella Vaccines (1 of 2 - 13+ 2-dose series) 2002 Hepatitis C Screening 2007 Influenza Vaccine (#1) 2025 3, 05/14/2022, 06/20/2021, Additional history exists DTaP/Tdap/Td Vaccines (8 - Td or Tdap) 07/03/2031 07/03/2021, 09/09/2011, 11/22/2007, Additional history exists HIB Vaccines Completed 02/07/1991, 07/07/1990 IPV Vaccines Completed 12/07/1994, 08/30, 01/28/1991 MMR Vaccines Completed 12/07/1994, 01/28/1991 Hepatitis B Vaccines Completed 11/06/2001, 06/26/2001, 05/31/2001 Meningococcal Vaccine Completed 08/09/2006 Pneumococcal Vaccine: Pediatrics (0 to 5 Years) and At-Risk Patients (6 to 49 Years) Aged Out 07/18/2019 No longer eligible based on patient's age to complete this topic HPV Vaccines (No Doses Required) Completed Hepatitis A Vaccines Aged Out No long er eligible based on patient's age to complete this topic Meningococcal B Vaccine Aged Out No l onger eligible based on patient's age to complete this topic Rotavirus Vaccines Aged Out No longer eligible based on patient's age to complete this topic Insurance [facility] MEDICARE [facility] MEDICARE Care Teams Art Professor Relationship Specialty Start Date End Date Loy Nye [address] [place] [phone] PCP - Insurance PCP 04/18/15 Provider, Unable To Verify [address] [place] [address] PCP - General 03/05/24 Leesa Francis MD [address] [place] [address] Associate Attending Interventional Radiology 02/14/19
== END 2025-05-21 12:03 | disposition home or self-care (01) ==
PROVIDERS: PCP Family Medicine; Visit Provider Internal Medicine
DX: H92.03 Otalgia, bilateral (principal)

== ENCOUNTER → 2025-05-21 11:13 | Outpatient (BNVA) | payer OTHER, SELFPAY | PROVIDERS: PCP Family Medicine; Visit Provider Internal Medicine | DX: H92.03 Otalgia, bilateral (principal) | CPT/HCPCS: 99212 ==